=== PATIENT | female | born 1985 | race Caucasian/White ===

== ENCOUNTER 2016-09-28 22:25 | Emergency (ER) | payer OTHER ==
[~2016-09-28] VITALS: Ht 160 cm; Wt 97.1 kg
[2016-09-28 22:35] VITALS: BP 133/59
--- NOTE | 2016-09-28 22:39 | ED.ADGEN ---
Past History Past Medical History: Endometriosis, Seizure Past Surgical History: Appendectomy, Cholecystectomy, Alcohol Use: None Drug Use: None Adult General Chief Complaint Chief Complaint "...I ve been vomiting all day... and now I got lower pelvic cramping.. and back pain... I don't think my water has broken..."..." I did eat some taco's today..."... "I am to get my on Saturday at ..." HPI HPI Patient is a 30 year old female who presents with above hx and complaints. Patient reportedly does all her OB and [facility] care at however currently cannot remember the doctor's name. Patient poorly admitted at on the fourth of this month for hyper emesis, dehydration and upper respiratory infection. Patient just now has completed a course of clindamycin 300 x 3 times a day. Patient is 1. Prior delivered by twins. No travel. No history of trauma. Patient reportedly been taking vitamins. No history of STDs. Review of Systems Review of Systems Constitutional: Denies fever or chills [] Eyes: Denies change in visual acuity, redness, or eye pain [] HENT: Denies nasal congestion or sore throat [] Respiratory: Complaints of non-productive cough and wheezing. Cardiovascular: No additional information not addressed in HPI [] GI:Complaints of lower abdominal pelvic cramping and pain, nausea, vomiting,. Denies bloody stools or diarrhea [] : Denies dysuria or hematuria [] Musculoskeletal: Denies back pain or joint pain [] Integument: Denies rash or skin lesions [] Neurologic: Denies headache, focal weakness or sensory changes [] Endocrine: Denies polyuria or polydipsia [] Family History Family History Non-contributory Current Medications Current Medications Current Medications Medications (Trade) Dose Ordered Sig/Hosea Start Time Stop Time Status Last Admin Dose Admin Lactated Ringer's (Iv Lactated Ringers) 1,000 ml @ 100 mls/hr Q10H 09/28/16 23:15 09/29/16 01:03 DC Ondansetron HCl (Zofran) 4 mg 1X ONCE 09/28/16 23:15 09/28/16 23:16 DC 09/28/16 23:15 4 MG Allergies Allergies Allergies Coded Allergies Type Severity Reaction Last Updated Verified ibuprofen Allergy Intermediate 06/14/16 Yes oxycodone Allergy Intermediate 06/14/16 Yes propoxyphene Allergy Intermediate 06/14/16 Yes Physical Exam Physical Exam Constitutional: moderate distress, non-toxic appearance. [] HENT: Normocephalic, atraumatic, bilateral external ears normal, oropharynx moist, no oral exudates, nose normal. Poor dentition. Eyes: PERRLA, EOMI, conjunctiva normal, no discharge. [] Neck: Normal range of motion, no tenderness, supple, no stridor. [] Cardiovascular:Heart rate regular rhythm, no murmur [] Lungs & Thorax: Bilateral breath sounds clear to auscultation [] Abdomen: Bowel sounds normal, soft,supra pelvic tenderness, no masses, no pulsatile masses. Obese. Old scar. Gravid. No marked effacement. Os is closed. movements. US bed side FHR 156 to 160's. Skin: Warm, dry, no erythema, no rash. [] Back: No tenderness, no CVA tenderness. [] Extremities: No tenderness, no cyanosis, no clubbing, ROM intact, trace ankle edema. [] Neurologic: Alert and oriented X 3, normal motor function, normal sensory function, no focal deficits noted. DTR+ 2 patella. Psychologic: Affect anxious, judgement normal, mood normal. [] Current Patient Data Vital Signs Vital Signs Date Time Temp Pulse Resp B/P Pulse Ox O2 Delivery O2 Flow Rate FiO2 09/28/16 22:35 97.9 95 20 97 Lab Results Laboratory Tests Test 09/28/16 23:20 White Blood Count 11.1x10^3/uL (4.0-11.0) H Red Blood Count 3.62x10^6/uL (3.50-5.40) Hemoglobin 10.4g/dL (12.0-15.5) L Hematocrit 31.9% (36.0-47.0) L Mean Corpuscular Volume 88fL (79-100) Mean Corpuscular Hemoglobin 29pg (25-35) Mean Corpuscular Hemoglobin Concent 33g/dL (31-37) Red Cell Distribution Width 14.4% (11.5-14.5) Platelet Count 246x10^3/uL (140-400) Neutrophils (%) (Auto) 66% (31-73) Lymphocytes (%) (Auto) 26% (24-48) Monocytes (%) (Auto) 8% (0-9) Eosinophils (%) (Auto) 0% (0-3) Basophils (%) (Auto) 1% (0-3) Neutrophils # (Auto) 7.3x10^3uL (1.8-7.7) Lymphocytes # (Auto) 2.8x10^3/uL (1.0-4.8) Monocytes # (Auto) 0.9x10^3/uL (0.0-1.1) Eosinophils # (Auto) 0.0x10^3/uL (0.0-0.7) Basophils # (Auto) 0.1x10^3/uL (0.0-0.2) Prothrombin Time 9.3SEC (9.4-11.4) L Prothrombin Time INR 0.9 (0.9-1.1) PTT 23SEC (23-33) Urine Collection Type Unknown Urine Color Straw Urine Clarity Clear Urine pH 6.5 Urine Specific Garrison 1.010 Urine Protein Neg (NEG-TRACE) Urine Glucose (UA) Negmg/dL (NEG) Urine Ketones (Stick) Negmg/dL (NEG) Urine Blood Trace (NEG) Urine Nitrite Neg (NEG) Urine Bilirubin Neg (NEG) Urine Urobilinogen Dipstick 0.2mg/dL (0.2 mg/dL) Urine Leukocyte Esterase Trace (NEG) Urine RBC Occ/HPF (0-2) Urine WBC Occ/HPF (0-4) Urine Squamous Epithelial Cells Few/LPF Urine Bacteria Few/HPF (0-FEW) Maternal Serum HCG Beta Subunit 72862dHW/mL (0-6) H Sodium Level 136mmol/L (136-145) Potassium Level 3.8mmol/L (3.5-5.1) Chloride Level 102mmol/L (98-107) Carbon Dioxide Level 20mmol/L (21-32) L Anion Gap 14 (6-14) Blood Urea Nitrogen 7mg/dL (7-20) Creatinine 0.8mg/dL (0.6-1.0) Estimated GFR (Cockcroft-Gault) 83.7 Glucose Level 96mg/dL (70-99) Calcium Level 8.2mg/dL (8.5-10.1) L Magnesium Level 2.1mg/dL (1.8-2.4) Total Bilirubin 0.2mg/dL (0.2-1.0) Direct Bilirubin 0.1mg/dL (0.0-0.2) Aspartate Amino Transferase (AST) 20U/L (15-37) Alanine Aminotransferase (ALT) 15U/L (14-59) Alkaline Phosphatase 124U/L (46-116) H Total Protein 7.1g/dL (6.4-8.2) Albumin 2.4g/dL (3.4-5.0) L Lipase 223U/L (73-393) Urine Opiates Screen Neg (NEG) Urine Methadone Screen Neg (NEG) Urine Barbiturates Neg (NEG) Urine Phencyclidine Screen Neg (NEG) Urine Amphetamine/Methamphetamine Neg (NEG) Urine Benzodiazepines Screen Neg (NEG) Urine Cocaine Screen Neg (NEG) Urine Cannabinoids Screen Neg (NEG) Urine Ethyl Alcohol Neg (NEG) Microbiology 09/28/16 Wet Prep - Final, Complete Microbiology 09/28/16 Wet Prep - Final, Complete EKG EKG [] Radiology/Procedures Radiology/Procedures [] Course & Med Decision Making Course & Med Decision Making Pertinent Labs and Imaging studies reviewed. (See chart for details). Discussed presentation, testing and tx. plan with Dr. Denia Tomlinson construction executive for Dr. Christie at . Will accept pt in transfer. [] Final Impression Final Impression 1. Nausea and vomiting -hyper emesis gravidarum 2. Gravid 39 weeks [] 3. Leukocytosis and anemia 4. Elevated alkaline phosphatase 5. Malnutrition albumin 2.4 Problems: Dragon Disclaimer Dragon Disclaimer This electronic medical record was generated, in whole or in part, using a voice recognition dictation system. JANUSZ TARIQ MD Sep 28, 2016 22:39
[2016-09-28] MEDS: ONDANSETRON PF 4 MG/2 ML VIAL. IV ONE (23:15)
[2016-09-28] MEDS ORDERED: IV RINGERS SOLUTION,LACTATED 1,000 ML IV SCH (23:15)
[2016-09-28] MEDS: IV RINGERS SOLUTION,LACTATED 1,000 ML IV SCH (23:30)
[2016-09-28 23:38] LABS: BASO # 0.1 x10^3/uL (0.0-0.2); BASO % 1 % (0-3); EOS % 0 % (0-3); HEMATOCRIT 31.9 % (36.0-47.0); HEMOGLOBIN 10.4 g/dL (12.0-15.5); LYMPH # 2.8 x10^3/uL (1.0-4.8); LYMPH % 26 % (24-48); MEAN CORPUSCULAR HEMOGLOBIN 29 pg (25-35); MEAN CORPUSCULAR HGB CONC 33 g/dL (31-37); MEAN CORPUSCULAR VOLUME 88 fL (79-100); MONO # 0.9 x10^3/uL (0.0-1.1); MONO % 8 % (0-9); NEUT # 7.3 x10^3uL (1.8-7.7); NEUT % 66 % (31-73); PLATELET COUNT 246 x10^3/uL (140-400); RED BLOOD COUNT 3.62 x10^6/uL (3.50-5.40); RED CELL DISTRIBUTION WIDTH 14.4 % (11.5-14.5); WHITE BLOOD COUNT 11.1 x10^3/uL (4.0-11.0)
[2016-09-28 23:52] LABS: ALBUMIN 2.4 g/dL (3.4-5.0); CALCIUM 8.2 mg/dL (8.5-10.1); CREATININE 0.8 mg/dL (0.6-1.0); DIRECT BILIRUBIN 0.1 mg/dL (0.0-0.2); GFR 83.7; POTASSIUM 3.8 mmol/L (3.5-5.1); TOTAL BILIRUBIN 0.2 mg/dL (0.2-1.0); TOTAL PROTEIN 7.1 g/dL (6.4-8.2)
[2016-09-28 23:58] LABS: BILIRUBIN,URINE NEG (NEG); CLARITY,URINE CLEAR; COLOR,URINE STRAW; GLUCOSE,URINE NEG (NEG); NITRITE,URINE NEG (NEG); RBC,URINE OCC /HPF (0-2); UROBILINOGEN,URINE 0.2 mg/dL (0.2 mg/dL)
[2016-09-28 23:59] LABS: BACTERIA,URINE FEW /HPF (0-FEW); SQUAMOUS EPITHELIAL CELL,UR FEW /LPF; WBC,URINE OCC /HPF (0-4)
[2016-09-29 00:04] LABS: BARBITURATES NEG (NEG); BENZODIAZEPINES NEG (NEG); CANNABINOIDS NEG (NEG); COCAINE NEG (NEG); METHADONE NEG (NEG); OPIATES NEG (NEG); PHENCYCLIDINE NEG (NEG)
[2016-09-29 00:12] LABS: AMPHETAMINE/METHAMPHETAMINE NEG (NEG)
[2016-09-30 14:07] LABS: HCV ANTIBODY <0.1 s/co ratio (0.0-0.9); HEP A IGM ABDY Negative (Negative)
[2016-10-02 16:12] LABS: CHLAMYDIA PROBE Negative (Negative)
== END 2016-09-29 00:45 | disposition short-term general hospital (02) ==
LOC: ER 22:25
DX: O21.0 Mild hyperemesis gravidarum (principal); D72.829 Elevated white blood cell count, unspecified; D64.9 Anemia, unspecified; R74.8 Abnormal levels of other serum enzymes; E46 Unspecified protein-calorie malnutrition; Z3A.39 39 weeks gestation of pregnancy; Z88.6 Allergy status to analgesic agent; Z88.8 Allergy status to other drugs, medicaments and biological substances
CPT/HCPCS: 36415; 80048; 80074; 80076; 80305; 81001; 83690; 83735; 84443; 84702; 85027; 85610; 85730; 86900; 86901; 87086; 87491; 87591; 96361; 96374; 99285; J2405; J7120; Q0111; G0481

== ENCOUNTER 2016-12-09 10:45 | Emergency (ER) | payer OTHER ==
[~2016-12-09] VITALS: Ht 160 cm; Wt 97.1 kg
[2016-12-09 10:57] VITALS: BP 148/68
--- NOTE | 2016-12-09 11:02 | PHYS DOC ---
Past History Past Medical History: No Pertinent History Past Surgical History: Appendectomy, Cholecystectomy, Alcohol Use: None Drug Use: None Adult General Chief Complaint Chief Complaint: COUGH HPI HPI Patient is a 31-year-old female ambulatory to the emergency department with the complaint of headache, runny nose, cough, chest congestion, feverish feeling and chills, sore throat, since yesterday. Her last dose of Tylenol was 11:30 PM last night. She didn't take any this morning because she went to work and Tylenol makes her sleepy, "any pills make me sleepy". 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 Told her to get a work note since she was off yesterday as well. Patient has no chronic medical problems. See multiple allergies. Review of Systems Review of Systems Constitutional: As in history of present illness HENT: As in history of present illness Respiratory: As in history of present illness Allergies Allergies Allergies Coded Allergies Type Severity Reaction Last Updated Verified ibuprofen Allergy Intermediate 06/14/16 Yes oxycodone Allergy Intermediate 06/14/16 Yes propoxyphene Allergy Intermediate 06/14/16 Yes Physical Exam Physical Exam Constitutional: Obese female, ambulatory, mentating normally, sniffling her nose often HENT: Normocephalic, atraumatic, bilateral external ears normal, oropharynx moist, tonsils not red or enlarged, streaky erythema on the posterior pharynx. Eyes: conjunctiva normal, no discharge. [] Neck: Normal range of motion, no stridor. [] Cardiovascular:Heart rate regular rhythm, no murmur [] Lungs & Thorax: Bilateral breath sounds clear to auscultation [] Skin: Warm, dry, no erythema, no rash. [] Extremities: No tenderness, no cyanosis, no clubbing, ROM intact, no edema. [] Neurologic: Alert and oriented X 3, normal motor function, normal sensory function, no focal deficits noted. [] EKG EKG [] Radiology/Procedures Radiology/Procedures [] Course & Med Decision Making Course & Med Decision Making Pertinent Labs and Imaging studies reviewed. (See chart for details) 31-year-old female with a symptom complex that suggests viral etiology. See instructions for plan. [] Dragon Disclaimer Dragon Disclaimer This chart was dictated in whole or in part using Voice Recognition software in a busy, high-work load, and often noisy Emergency Department environment. It may contain unintended and wholly unrecognized errors or omissions. Departure Departure: Impression: Primary Impression: Viral upper respiratory infection Disposition: 01 HOME, SELF-CARE Condition: STABLE Referrals: PCP,NO (PCP) Patient Instructions: Upper Respiratory Infection, Adult, [id number] Additional Instructions: Tylenol for headache, aches and pains, fever and chills. Benadryl (diphenhydramine) for runny nose Stay home from work and avoid contacting other people, good handwashing, until you're better and without fever. FADI IRBY MD Dec 09, 2016 11:02
== END 2016-12-09 11:12 | disposition home or self-care (01) ==
LOC: ER 10:45
DX: J06.9 Acute upper respiratory infection, unspecified (principal); Z88.6 Allergy status to analgesic agent; Z88.8 Allergy status to other drugs, medicaments and biological substances
CPT/HCPCS: 99281

== ENCOUNTER 2016-12-24 19:27 | Emergency (ER) | payer OTHER ==
[~2016-12-24] VITALS: Ht 154.9 cm; Wt 84.8 kg
[2016-12-24 20:08] VITALS: BP 105/59
--- NOTE | 2016-12-24 21:32 | PHYS DOC ---
Past History Past Medical History: Asthma, Seizure, Other Past Surgical History: Other Alcohol Use: None Drug Use: None Adult General Chief Complaint Chief Complaint: UPPER EXTREMITY PAIN HPI HPI Patient is a 31-year-old female complaining of right elbow pain. 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 The pain goes all the way up to her shoulder and all the way down to her hand. It hurts to move her arm or to touch her elbow. She has not taken anything for the pain. She states ibuprofen causes her to vomit and get red spots on her face but she is able to tolerate Aleve. Review of Systems Review of Systems Musculoskeletal: As in history of present illness, denies other Allergies Allergies Allergies Coded Allergies Type Severity Reaction Last Updated Verified ibuprofen Allergy Intermediate 06/14/16 Yes oxycodone Allergy Intermediate 06/14/16 Yes propoxyphene Allergy Intermediate 06/14/16 Yes Physical Exam Physical Exam Constitutional: Well developed, well nourished, no acute distress, non-toxic appearance. Alert, ambulatory, mentating normally. HENT: Normocephalic, atraumatic, bilateral external ears normal, nose normal. [ ] Eyes: conjunctiva normal, no discharge. [] Neck: Normal range of motion, no stridor. [] Skin: Warm, dry, no erythema, no rash. [] Extremities: Patient holds her right elbow at 90 flexion. Right elbow does not appear swollen. There is no redness or deformity noted. Light touch to the entire elbow, medial and lateral aspects, anterior and posterior aspects, is tender to palpation. Right forearm, wrist, hand negative for deformity, swelling , or abnormality. She is able to move her right hand. Neurologic: Alert and oriented X 3, normal motor function, normal sensory function, no focal deficits noted. [] Current Patient Data Vital Signs Vital Signs Date Time Temp Pulse Resp B/P (MAP) Pulse Ox O2 Delivery O2 Flow Rate FiO2 12/24/16 20:08 98.5 73 20 99 Room Air EKG EKG [] Radiology/Procedures Radiology/Procedures Three-view x-ray of the right elbow read by me. No acute findings. [] Course & Med Decision Making Course & Med Decision Making Pertinent Labs and Imaging studies reviewed. (See chart for details) 31-year-old female with elbow pain after bumping it at work, I believe her pain is soft tissue rather than bony, may be tendinitis, see instructions for plan. [] Dragon Disclaimer Dragon Disclaimer This chart was dictated in whole or in part using Voice Recognition software in a busy, high-work load, and often noisy Emergency Department environment. It may contain unintended and wholly unrecognized errors or omissions. Departure Departure: Impression: Primary Impression: Tendinitis of right elbow Disposition: HOME, SELF-CARE Condition: STABLE Referrals: PCP,NO (PCP) Additional Instructions: Wear the sling to rest your elbow for several days. You can put an ice pack into the sling to keep ice on your elbow, try to keep it iced most of the day. Aleve [id number], take as directed for pain. If not better in one week, see your doctor for recheck. FADI IRBY MD Dec 24, 2016 21:32
--- NOTE | 2016-12-25 08:48 | RAD ---
Indication injury. Pain. AP oblique and lateral views of the right elbow were obtained. No acute bony finding is seen. Significant joint fluid is not seen.
== END 2016-12-24 21:35 | disposition home or self-care (01) ==
LOC: ER 19:27
DX: M77.9 Enthesopathy, unspecified (principal); J45.909 Unspecified asthma, uncomplicated; Z88.6 Allergy status to analgesic agent; Z88.8 Allergy status to other drugs, medicaments and biological substances; W22.8XXA Striking against or struck by other objects, initial encounter; Y93.89 Activity, other specified; Y99.8 Other external cause status; Y92.89 Other specified places as the place of occurrence of the external cause
CPT/HCPCS: 73080; 99284

== ENCOUNTER 2017-01-13 15:00 | Emergency (ER) | payer OTHER ==
[~2017-01-13] VITALS: Ht 157.5 cm; Wt 84.4 kg
[2017-01-13 15:08] VITALS: BP 129/80
[2017-01-13] MEDS ORDERED: HYDR-971 PO (15:42)
[2017-01-13] MEDS ORDERED: PENI500T PO (15:42)
--- NOTE | 2017-01-13 15:42 | PHYS DOC ---
Past History Past Medical History: Anxiety, Asthma, Depression, Seizure, Other Past Surgical History: Appendectomy, , Other Alcohol Use: None Drug Use: None Adult General Chief Complaint Chief Complaint: DENTAL PROBLEM HPI HPI Patient is a 31 year old female who presents with complaint of dental pain. Patient states her symptoms have been worsening over the past 2 days. The patient states that she has had trouble with dental pain in her left mandible on multiple occasions. Patient states that she does not have insurance and therefore she has not visited with a dentist to address this issue. Patient states that her symptoms were aggravated after her child accidentally kicked her in the face while sleeping at night. Patient denies any swelling but states that she is having pain which keeps her from being able to eat. Patient also states that she is having difficulty sleeping. Patient states that she took Tylenol and Orajel with no relief in symptoms. Patient denies any associated fevers or vomiting. Review of Systems Review of Systems Constitutional: Denies fever or chills [] Eyes: Denies change in visual acuity, redness, or eye pain [] HENT: Dental pain, denies nasal congestion or sore throat [] Respiratory: Denies cough or shortness of breath [] Cardiovascular: Denies chest pain or edema [] GI: Denies abdominal pain, nausea, vomiting, bloody stools or diarrhea [] : Denies dysuria or hematuria [] Musculoskeletal: Denies back pain or joint pain [] Integument: Denies rash or skin lesions [] Neurologic: Denies headache, focal weakness or sensory changes [] Allergies Allergies Allergies Coded Allergies Type Severity Reaction Last Updated Verified ibuprofen Allergy Intermediate 06/14/16 Yes oxycodone Allergy Intermediate 06/14/16 Yes propoxyphene Allergy Intermediate 06/14/16 Yes Physical Exam Physical Exam Constitutional: Alert, afebrile, appears in moderate discomfort. [] HENT: Normocephalic, atraumatic, bilateral external ears normal, oropharynx moist, no tenderness to palpation over tooth #20, no gingival fluctuance or erythema noted, no oral exudates, nose normal. [] Eyes: PERRLA, EOMI, conjunctiva normal, no discharge. [] Neck: Normal range of motion, no tenderness, supple, no stridor. [] Cardiovascular:Heart rate regular rhythm, no murmur [] Lungs & Thorax: Bilateral breath sounds clear to auscultation [] Abdomen: Bowel sounds normal, soft, no tenderness, no masses, no pulsatile masses. [] Skin: Warm, dry, no erythema, no rash. [] Back: No tenderness, no CVA tenderness. [] Extremities: No tenderness, no cyanosis, no clubbing, ROM intact, no edema. [] Neurologic: Alert and oriented X 3, normal motor function, normal sensory function, no focal deficits noted. [] Current Patient Data Vital Signs Vital Signs Date Time Temp Pulse Resp B/P (MAP) Pulse Ox O2 Delivery O2 Flow Rate FiO2 01/13/17 15:08 73 20 97 Room Air Lab Results Not performed EKG EKG Not performed [] Radiology/Procedures Radiology/Procedures Not performed [] Course & Med Decision Making Course & Med Decision Making Pertinent Labs and Imaging studies reviewed. (See chart for details) Patient does not show a dental abscess that is able to be drained in the emergency department. Due to direct tenderness to palpation over tooth #20, a small apical abscess cannot be ruled out at this time. The patient will be started on penicillin VK and Amity for treatment. Patient was provided with a list of dental clinics to follow-up with in the next 5-7 days for reevaluation. Advised return emergency department for any worsening symptoms. Patient voiced understanding and in agreement with treatment plan. Dragon Disclaimer Dragon Disclaimer This chart was dictated in whole or in part using Voice Recognition software in a busy, high-work load, and often noisy Emergency Department environment. It may contain unintended and wholly unrecognized errors or omissions. Departure Departure: Impression: Primary Impression: Pain, dental Disposition: HOME, SELF-CARE Condition: STABLE Referrals: PCP,NO (PCP) Patient Instructions: Dental Pain Additional Instructions: With your dentist in the next 5-7 days for reevaluation. Return to the emergency department for any worsening symptoms. Scripts Hydrocodone Bit/Acetaminophen (NORCO 5-325 TABLET) 1 Each Tablet 1-2 TAB PO Q4-6HRS Y for PAIN, #20 TAB Prov: HELEN COLE MD 01/13/17 Penicillin V Potassium (PENICILLIN V POTASSIUM) 500 Mg Tablet 1 TAB PO QID, #40 TAB Prov: HELEN COLE MD 01/13/17 HELEN COLE MD Jan 13, 2017 15:42
[2017-01-13] MEDS ORDERED: PENICILLIN V K 250 MG TABLET. PO ONE (16:10)
[2017-01-13] MEDS ORDERED: HYDROcodone/APAP 7.5/325MG 1 TAB TABLET PO ONE (16:10)
== END 2017-01-13 15:57 | disposition home or self-care (01) ==
LOC: ER 15:00
DX: K08.89 Other specified disorders of teeth and supporting structures (principal); J45.909 Unspecified asthma, uncomplicated; F41.9 Anxiety disorder, unspecified; Z88.6 Allergy status to analgesic agent; Z88.5 Allergy status to narcotic agent; Z88.8 Allergy status to other drugs, medicaments and biological substances
CPT/HCPCS: 99283

== ENCOUNTER 2017-04-05 18:20 | Emergency (ER) | payer OTHER ==
[~2017-04-05] VITALS: Ht 157.5 cm; Wt 94.8 kg
[~2017-04-05 18:20] MED LIST: HYDR-971 PO; PENI500T PO
[2017-04-05 19:00] VITALS: BP 151/77
[2017-04-05] MEDS ORDERED: HYDR-2758 PO (19:14)
[2017-04-05] MEDS ORDERED: METH-38 PO (19:14)
[2017-04-05] MEDS ORDERED: LORazepam 1 MG TABLET PO ONE (19:15)
[2017-04-05] MEDS ORDERED: METHOCARBAMOL 500 MG TABLET PO ONE (19:15)
--- NOTE | 2017-04-05 19:15 | PHYS DOC ---
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 The back pain began at home while she is doing her typical daily activities of living when she noticed increasing pain with bending over turning to the right left that is progressively gotten more stiff in the lower back. She denies any specific trauma, denies any night sweats, weight loss, UTI symptoms, hematuria, nausea, vomiting, diarrhea, numbness and tinea to the groin, bowel or bladder incontinence or prior injuries to this back. Eyes no sick contacts denies any non-excellent trauma home or any abuse. Patient is tried use Tylenol without success. Patient does work all the time taking care of her children so she has limited time to relax. She is allergic to multiple medications although Motrin is listed she just has nausea with this particular medication. Pain is worse with range of motion and movement specific bending over. It is moderate 7 of 10 at this time at rest 9 of 10 with movement. It does not radiate anywhere to the abdomen or upper back Review of Systems Review of Systems Constitutional: Denies fever or chills [] Eyes: Denies change in visual acuity, redness, or eye pain [] HENT: Denies nasal congestion or sore throat [] Respiratory: Denies cough or shortness of breath [] Cardiovascular: No additional information not addressed in HPI [] GI: Denies abdominal pain, nausea, vomiting, bloody stools or diarrhea [] : Denies dysuria or hematuria [] Musculoskeletal: Main complaint is lower back pain without joint pain swelling or trauma Integument: Denies rash or skin lesions [] Neurologic: Denies headache, focal weakness or sensory changes [] Endocrine: Denies polyuria or polydipsia [] Current Medications Current Medications Current Medications Medications (Trade) Dose Ordered Sig/Hosea Start Time Stop Time Status Last Admin Dose Admin Ketorolac Tromethamine (Toradol) 60 mg 1X ONCE 04/05/17 19:00 04/05/17 19:01 UNV Lorazepam (Ativan) 1 mg 1X ONCE 04/05/17 19:15 04/05/17 19:16 Methocarbamol (Robaxin) 500 mg 1X ONCE 04/05/17 19:15 04/05/17 19:16 Allergies Allergies Allergies Coded Allergies Type Severity Reaction Last Updated Verified ibuprofen Allergy Intermediate 06/14/16 Yes oxycodone Allergy Intermediate 06/14/16 Yes propoxyphene Allergy Intermediate 06/14/16 Yes Physical Exam Physical Exam Vital signs recorded on the chart within normal limits Constitutional: Well developed, well nourished, no acute distress, non-toxic appearance. Mildly obese HENT: Normocephalic, atraumatic, bilateral external ears normal, oropharynx moist, has very poor dentition with significant dental caries noted on the incisors.. [] Cardiovascular:Heart rate regular rhythm, no murmur [] Lungs & Thorax: Bilateral breath sounds clear to auscultation [] Abdomen: Bowel sounds normal, soft, no tenderness, no masses, no pulsatile masses. [] Skin: Warm, dry, no erythema, no rash. She has brisk capillary refill of the distal extremities. Back: She has tenderness to the erector spinae muscles of L1-L5 nothing midline no warmth or skin changes over the lumbar spine. This pain is exactly reproducible on physical exam with direct pressure over the spasm muscles.. [] Extremities: No tenderness, no cyanosis, no clubbing, ROM intact, no edema. [] Neurologic: Alert and oriented X 3, normal motor function, normal sensory function, no focal deficits noted. She has normal strength to her lower extremities with normal DTRs. Negative straight leg raise bilaterally[] Psychologic: Affect normal, judgement normal, mood normal. [] EKG EKG [] Radiology/Procedures Radiology/Procedures [] Course & Med Decision Making Course & Med Decision Making Pertinent Labs and Imaging studies reviewed. (See chart for details) CRAFTI Cauda Equina Renal Stone AAA ruptured Fracture Tumor (TB, metastatic disease) Infection UTI, pyelonephritis, epidural abscess. Patient's spine symptoms have stabilized while they have been evaluated in the department and are appropriate for outpatient work up. No evidence of cauda equina, cord compression, infiltrative, or infectious etiology. Impression: Muscle skeletal back pain decision to treat with anti-inflammatories , Robaxin, and hydrocodone. Dragon Disclaimer Dragon Disclaimer This chart was dictated in whole or in part using Voice Recognition software in a busy, high-work load, and often noisy Emergency Department environment. It may contain unintended and wholly unrecognized errors or omissions. Departure Departure: Impression: Primary Impression: Pain aggravated by changing postions Additional Impression: Back pain Disposition: 01 HOME, SELF-CARE Referrals: PCP,NO (PCP) Patient Instructions: Back Exercises, Back Injury Prevention, Back Pain in Additional Instructions: My discharge plan Follow up: In addition patient is asked to followup with their primary doctor, within a week for followup examination and to address patient's ongoing medical conditions. Because patient does not have a regular medical doctor, a local physician Resource Sheet will be provided to establish care primary care. Patient is advised that in the Emergency Department primary complaints are addressed and only in light of known signs and symptoms. Patient should return immediately to the emergency department if new signs and symptoms develop or patient's condition worsens in any way. At time of discharge patient was in stable condition and had verbalized understanding of the discharge instructions. Scripts Hydrocodone Bit/Acetaminophen (HYDROCODONE-APAP 5-325 ) 1 Each Tablet 1 TAB PO PRN Q6HRS Y for PAIN for 2 Days, #10 TAB 0 Refills Prov: CAR IBRAHIM MD 04/05/17 Methocarbamol (ROBAXIN-750) 750 Mg Tablet 1 TAB PO BID, #20 TAB Prov: CAR IBRAHIM MD 04/05/17 Problem Qualifiers CAR IBRAHIM MD Apr 05, 2017 19:15
[2017-04-05] MEDS ORDERED: KETOROLAC 60 MG/2 ML VIAL. IM ONE (19:30)
== END 2017-04-05 19:30 | disposition home or self-care (01) ==
LOC: ER 18:20
DX: M54.5 Low back pain (principal); J45.909 Unspecified asthma, uncomplicated; F41.9 Anxiety disorder, unspecified; F32.9 Major depressive disorder, single episode, unspecified; Z90.49 Acquired absence of other specified parts of digestive tract; Z98.890 Other specified postprocedural states; F17.210 Nicotine dependence, cigarettes, uncomplicated; Z88.6 Allergy status to analgesic agent; Z88.5 Allergy status to narcotic agent; Z88.8 Allergy status to other drugs, medicaments and biological substances
CPT/HCPCS: 96372; 99283; J1885

== ENCOUNTER 2017-04-17 16:01 | Emergency (ER) | payer OTHER ==
[~2017-04-17] VITALS: Ht 157.5 cm; Wt 94.8 kg
[~2017-04-17 16:01] MED LIST changes: +HYDR-2758 PO; +METH-38 PO
--- NOTE | 2017-04-17 16:14 | PHYS DOC ---
Past History Past Medical History: Anxiety, Asthma, Depression, Seizure, Other Past Surgical History: Appendectomy, , Other Smoking: Cigarettes Alcohol Use: None Drug Use: None Adult General Chief Complaint Chief Complaint: ANKLE PROBLEM HPI HPI Patient is a 31-year-old female presenting to the emergency department for evaluation of left proximal fibular pain left lateral ankle pain and left lateral foot pain status post inversion injury while trying to move a vehicle. He is some swelling to her left lateral malleolus but she denies any weakness numbness or tingling. She cannot bear weight on her ankle. Review of Systems Review of Systems Constitutional: Denies fever or chills [] Musculoskeletal: + joint pain [] Integument: Denies abrasions or lacerations Neurologic: Denies focal weakness or sensory changes [] All other systems were reviewed and found to be within normal limits, except as documented in this note. Allergies Allergies Allergies Coded Allergies Type Severity Reaction Last Updated Verified ibuprofen Allergy Intermediate 06/14/16 Yes oxycodone Allergy Intermediate 06/14/16 Yes propoxyphene Allergy Intermediate 06/14/16 Yes Physical Exam Physical Exam Constitutional: Well developed, well nourished, no acute distress, non-toxic appearance. [] Extremities: Pain to proximal fibula on palpation. HEENT lateral malleolus with some swelling although no deformity. Pain to palpation of fifth metatarsal diffusely. Neurologic: Alert and oriented X 3, normal motor function, normal sensory function, no focal deficits noted. [] EKG EKG [] Radiology/Procedures Radiology/Procedures [] Course & Med Decision Making Course & Med Decision Making X-ray with a small distal fibular tip fracture. We'll put in air splint and crutches recommend rice and tramadol and follow with PCP and/or orthopedics in one week and return with any new worsening symptoms. Patient aware and agreeable with plan. Dragon Disclaimer Dragon Disclaimer This electronic medical record was generated, in whole or in part, using a voice recognition dictation system. Departure Departure: Impression: Primary Impression: Fibula fracture Disposition: 01 HOME, SELF-CARE Condition: STABLE Referrals: JOSE CARLOS CAN DO (PCP) Patient Instructions: Ankle Fracture Scripts Tramadol Hcl (TRAMADOL HCL) 50 Mg Tablet 50 MG PO PRN Q6HRS Y for PAIN, #14 TAB Prov: ELIZABETH DAMON DO 04/17/17 Problem Qualifiers Primary Impression: Fibula fracture Encounter type: initial encounter Fibula location: distal Fracture type: closed Fracture morphology: unspecified fracture morphology Laterality: left Qualified Codes: S82.832A - Other fracture of upper and lower end of left fibula, initial encounter for closed fracture ELIZABETH DAMON DO Apr 17, 2017 16:14
[2017-04-17] MEDS ORDERED: TRAM50TA PO (16:42)
--- NOTE | 2017-04-17 16:44 | RAD ---
EXAM: 1. Left tibia/fibula 2 views. 2. Left ankle 3 views. 3. Left foot 3 views. HISTORY: Left leg, ankle and foot pain after injury. COMPARISON: None. FINDINGS: The joint spaces and alignment of the knee appear maintained. There are no fractures within the proximal tibia or fibula. There is a small avulsion fracture at the tip of the lateral malleolus with mild overlying soft tissue swelling. Joint spaces and alignment of the ankle mortise are maintained. The lateral ankle projection is rotated. No fractures are appreciated in the left foot. Joint spaces and alignment are maintained. IMPRESSION: 1. Small avulsion fracture at the tip of the lateral malleolus.
[2017-04-17] MEDS ORDERED: HYDROcodone/APAP 5/325MG 1 TAB TABLET PO ONE (16:45)
[2017-04-17 17:05] VITALS: BP 105/65
== END 2017-04-17 17:05 | disposition home or self-care (01) ==
LOC: ER 16:01
DX: S82.832A Other fracture of upper and lower end of left fibula, initial encounter for closed fracture (principal); J45.909 Unspecified asthma, uncomplicated; F17.210 Nicotine dependence, cigarettes, uncomplicated; Z88.6 Allergy status to analgesic agent; Z88.5 Allergy status to narcotic agent; Z88.8 Allergy status to other drugs, medicaments and biological substances; X50.9XXA Other and unspecified overexertion or strenuous movements or postures, initial encounter; Y93.89 Activity, other specified; Y92.89 Other specified places as the place of occurrence of the external cause; Y99.8 Other external cause status
CPT/HCPCS: 29515; 73590; 73610; 73630; 99284-25

== ENCOUNTER 2017-07-17 08:37 | Emergency (ER) | payer OTHER ==
[~2017-07-17 08:37] MED LIST changes: +TRAM50TA PO
[2017-07-17] MEDS ORDERED: IV NORMAL SALINE 1,000ML 1,000 ML IV SCH (09:04)
--- NOTE | 2017-07-17 09:12 | PHYS DOC ---
Past History Past Medical History: Anxiety, Asthma, Depression, Seizure, Other Past Surgical History: Appendectomy, , Other Smoking: Cigarettes Alcohol Use: None Additional Alcohol Information: NONE FOR 1 YEAR, OCC DRINK PRIOR TO THAT Drug Use: None Adult General Chief Complaint Chief Complaint: LOWER EXT PAIN [facility] HPI Patient is a 31 year old female who presents with complaint of bilateral lower extremity pain. Patient states that her symptoms started approximately 3 days ago. The patient states that she started noticing pain starting behind both knees and extending through her bilateral calves. Patient states the pain worsens with movement. Patient denies any inciting trauma. Patient denies history of venous thrombosis and denies any recent long due to immobilization or extended travel. The patient rates her pain on my evaluation as 8 out of 10. Patient denies any shortness of breath, chest pain, or fever. Patient states that she had noticed swelling to both lower extremities couple days ago but states that she is not having any swelling in the extremities today. Review of Systems Review of Systems Constitutional: Denies fever or chills [] Eyes: Denies change in visual acuity, redness, or eye pain [] HENT: Denies nasal congestion or sore throat [] Respiratory: Denies cough or shortness of breath [] Cardiovascular: No additional information not addressed in HPI [] GI: Denies abdominal pain, nausea, vomiting, bloody stools or diarrhea [] : Denies dysuria or hematuria [] Musculoskeletal: Bilateral lower extremity pain[] Integument: Denies rash or skin lesions [] Neurologic: Denies headache, focal weakness or sensory changes [] All other systems were reviewed and found to be within normal limits, except as documented in this note. Current Medications Current Medications Current Medications Medications (Trade) Dose Ordered Sig/[facility] Start Time Stop Time Status Last Admin Dose Admin Fentanyl Citrate (Fentanyl 2ml Vial) 50 mcg PRN Q15MIN PRN 07/17/17 09:15 07/18/17 09:14 Ondansetron HCl (Zofran) 4 mg 1X ONCE 07/17/17 09:30 07/17/17 09:31 Sodium Chloride 1,000 ml @ 1,000 mls/hr Q1H 07/17/17 09:04 07/17/17 10:03 Allergies Allergies Allergies Coded Allergies Type Severity Reaction Last Updated Verified ibuprofen Allergy Intermediate 07/17/17 Yes oxycodone Allergy Intermediate 07/17/17 Yes propoxyphene Allergy Intermediate 07/17/17 Yes acetaminophen Allergy Unknown 07/17/17 Yes Physical Exam Physical Exam Constitutional: Alert, afebrile, appears in mild to moderate discomfort. [] HENT: Normocephalic, atraumatic, bilateral external ears normal, oropharynx moist, no oral exudates, nose normal. [] Eyes: PERRLA, EOMI, conjunctiva normal, no discharge. [] Neck: Normal range of motion, no tenderness, supple, no stridor. [] Cardiovascular:Heart rate regular rhythm, no murmur [] Lungs & Thorax: Bilateral breath sounds clear to auscultation [] Abdomen: Bowel sounds normal, soft, no tenderness, no masses, no pulsatile masses. [] Skin: Warm, dry, no erythema, no rash. [] Back: No tenderness, no CVA tenderness. [] Extremities: Bilateral calf tenderness to palpation, no edema, no cyanosis, no clubbing, ROM intact. [] Neurologic: Alert and oriented X 3, normal motor function, normal sensory function, no focal deficits noted. [] Current Patient Data Vital Signs Vital Signs Date Time Temp Pulse Resp B/P (MAP) Pulse Ox O2 Delivery O2 Flow Rate FiO2 07/17/17 08:37 98.0 69 20 99 Room Air Lab Results Laboratory Tests Test 07/17/17 09:15 White Blood Count 8.3 x10^3/uL Red Blood Count 4.84 x10^6/uL Hemoglobin 13.8 g/dL Hematocrit 41.5 % Mean Corpuscular Volume 86 fL Mean Corpuscular Hemoglobin 29 pg Mean Corpuscular Hemoglobin Concent 33 g/dL Red Cell Distribution Width 15.0 % Platelet Count 391 x10^3/uL Neutrophils (%) (Auto) 59 % Lymphocytes (%) (Auto) 31 % Monocytes (%) (Auto) 5 % Eosinophils (%) (Auto) 4 % Basophils (%) (Auto) 1 % Neutrophils # (Auto) 4.9 x10^3uL Lymphocytes # (Auto) 2.6 x10^3/uL Monocytes # (Auto) 0.4 x10^3/uL Eosinophils # (Auto) 0.3 x10^3/uL Basophils # (Auto) 0.1 x10^3/uL Sodium Level 139 mmol/L Potassium Level 3.9 mmol/L Chloride Level 103 mmol/L Carbon Dioxide Level 26 mmol/L Anion Gap 10 Blood Urea Nitrogen 10 mg/dL Creatinine 1.0 mg/dL Estimated GFR (Cockcroft-Gault) 64.3 Glucose Level 92 mg/dL Calcium Level 8.7 mg/dL Magnesium Level 2.1 mg/dL Creatine Kinase 137 U/L Current Medications Medications (Trade) Dose Ordered Sig/[facility] Route PRN Reason Start Time Stop Time Status Last Admin Dose Admin Fentanyl Citrate (Fentanyl 2ml Vial) 50 mcg PRN Q15MIN PRN IV PAIN GREATER THAN 3/10 07/17/17 09:15 07/18/17 09:14 Sodium Chloride 1,000 ml @ 1,000 mls/hr Q1H IV 07/17/17 09:04 07/17/17 10:03 DC Ondansetron HCl (Zofran) 4 mg 1X ONCE IV 07/17/17 09:30 07/17/17 09:31 DC EKG EKG Not performed[] Radiology/Procedures Radiology/Procedures [address] [address] IMAGING REPORT Signed PATIENT: LARRY STOVER ACCOUNT: [id number] : 1985 LOCATION: ER AGE: 31 SEX: F EXAM STATUS: REG ER ORD. PHYSICIAN: HELEN COLE MD REASON: bilateral lower extremity calf pain, rule out DVT PROCEDURE: VENOUS LOWER EXT BILATERAL Examination: Ultrasound bilateral lower extremity venous duplex History: History of bilateral lower calf pain Comparison: None available Technique: Grayscale, color Doppler 2-D, spectral waveform analysis of the bilateral lower extremity venous system performed. Findings: The visualized common femoral vein, superficial femoral vein, popliteal vein demonstrate normal compression and augmentation of flow. The visualized calf veins are patent. Impression: No evidence of deep venous thrombosis identified in the visualized bilateral lower extremity venous system. DICTATED AND SIGNED BY: SRAVAN WHITT MD DATE: 07/17/17 0951 CC: HELEN COLE MD; PCP,NO ~ [] Course & Med Decision Making Course & Med Decision Making Pertinent Labs and Imaging studies reviewed. (See chart for details) Patient was given IV fluids, fentanyl, and Zofran. The patient's lab work shows no elevation in CK levels in the patient's electrolytes and kidney function appear to be normal. Patient's ultrasound was negative for deep venous thrombosis of the lower extremities. The patient's symptoms may be related to arthritis of the knees versus acute muscle strain. No acute threatening process appears present at this time. The patient states that she listed an allergy to ibuprofen because "it makes me throw up." This is likely not a true anaphylactic allergy. I did recommend that patient could started on low-dose naproxen [id number] strength 1 twice daily. I have agreed however to write the patient for a Medrol Dosepak in case the patient has any trouble with nausea or vomiting related to use of naproxen. Advised continued rest at home and oral hydration to help with symptoms. Recommended follow-up in 3-5 days with primary doctor if symptoms are not improving and return emergency department for any worsening symptoms. Patient voiced understanding and in agreement with treatment plan. Dragon Disclaimer Dragon Disclaimer This electronic medical record was generated, in whole or in part, using a voice recognition dictation system. Departure Departure: Impression: Primary Impression: Bilateral calf pain Disposition: HOME, SELF-CARE Condition: IMPROVED Referrals: PCP,RONAK (PCP) Patient Instructions: Muscle Strain, [id number] Additional Instructions: You may try [id number] naproxen sodium 220 mg 1 tablet twice daily for the next 5-7 days to help with your pain. If you're having any difficulty taking this medication, then it is recommended that she fill the Medrol prescription which was given to you at today's visit. Follow-up with your primary doctor in 3-5 days for reevaluation. Return to the emergency department for any worsening symptoms. Scripts Methylprednisolone (MEDROL) 4 Mg Tab.ds.pk 1 PKG PO UD, #1 PKG Prov: HELEN COLE MD 07/17/17 HELEN COLE MD Jul 17, 2017 09:12
[2017-07-17 09:30] LABS: BASO # 0.1 x10^3/uL (0.0-0.2); BASO % 1 % (0-3); EOS # 0.3 x10^3/uL (0.0-0.7); EOS % 4 % (0-3); HEMATOCRIT 41.5 % (36.0-47.0); HEMOGLOBIN 13.8 g/dL (12.0-15.5); LYMPH # 2.6 x10^3/uL (1.0-4.8); LYMPH % 31 % (24-48); MEAN CORPUSCULAR HEMOGLOBIN 29 pg (25-35); MEAN CORPUSCULAR HGB CONC 33 g/dL (31-37); MEAN CORPUSCULAR VOLUME 86 fL (79-100); MONO # 0.4 x10^3/uL (0.0-1.1); MONO % 5 % (0-9); NEUT # 4.9 x10^3uL (1.8-7.7); NEUT % 59 % (31-73); PLATELET COUNT 391 x10^3/uL (140-400); RED BLOOD COUNT 4.84 x10^6/uL (3.50-5.40); WHITE BLOOD COUNT 8.3 x10^3/uL (4.0-11.0)
[2017-07-17] MEDS ORDERED: ONDANSETRON PF 4 MG/2 ML VIAL. IV ONE (09:30)
[2017-07-17 09:43] LABS: CALCIUM 8.7 mg/dL (8.5-10.1); GFR 64.3; MAGNESIUM 2.1 mg/dL (1.8-2.4); POTASSIUM 3.9 mmol/L (3.5-5.1)
--- NOTE | 2017-07-17 09:57 | RAD ---
Examination: Ultrasound bilateral lower extremity venous duplex History: History of bilateral lower calf pain Comparison: None available Technique: Grayscale, color Doppler 2-D, spectral waveform analysis of the bilateral lower extremity venous system performed. Findings: The visualized common femoral vein, superficial femoral vein, popliteal vein demonstrate normal compression and augmentation of flow. The visualized calf veins are patent. Impression: No evidence of deep venous thrombosis identified in the visualized bilateral lower extremity venous system.
[2017-07-17] MEDS ORDERED: METH4TAB2 PO (10:10)
[2017-07-17 11:24] VITALS: BP 112/57
== END 2017-07-17 11:38 | disposition home or self-care (01) ==
LOC: ER 08:37
DX: M79.661 Pain in right lower leg (principal); M79.662 Pain in left lower leg; R22.43 Localized swelling, mass and lump, lower limb, bilateral; J45.909 Unspecified asthma, uncomplicated; F17.210 Nicotine dependence, cigarettes, uncomplicated; Z88.6 Allergy status to analgesic agent; Z88.5 Allergy status to narcotic agent
CPT/HCPCS: 36415; 80048; 82550; 83735; 85025; 93970; 96361; 96374; 96375; 99285; J2405; J3010; J7030

== ENCOUNTER 2017-07-31 21:31 | Emergency (ER) | payer OTHER ==
[~2017-07-31] VITALS: Ht 157.5 cm; Wt 93.3 kg
[~2017-07-31 21:31] MED LIST changes: +METH4TAB2 PO
--- NOTE | 2017-07-31 21:48 | PHYS DOC ---
Past History Past Medical History: Anxiety, Asthma, Depression, Seizure, Other Past Surgical History: Appendectomy, , Other Smoking: Cigarettes Alcohol Use: None Drug Use: None Adult General Chief Complaint Chief Complaint: MULTIPLE COMPLAINTS HPI HPI Patient is a 31 year old F who presents with cough/cold/congestion for the past 24 hours. Patient states she has not smoked in a week because of her URI symptoms. Over the past 24 hours she's had worsening wheezing with chills at home however did not take her temperature. Patient had a productive cough. Patient denies any chest pain. Patient states the shortness of breath is worse when she gets up and walks. Patient states she vomited today. Patient has no other complaints. Review of Systems Review of Systems GEN: Denies fevers, chills, sweats HEENT: Congestion CV: Denies chest pain RESP: Cough GI: Vomited NEURO: Denies confusion, dizziness MSK: Denies weakness, joint pain/swelling All other systems were reviewed and found to be within normal limits, except as documented in this note. Allergies Allergies Allergies Coded Allergies Type Severity Reaction Last Updated Verified ibuprofen Allergy Intermediate 07/17/17 Yes oxycodone Allergy Intermediate 07/17/17 Yes propoxyphene Allergy Intermediate 07/17/17 Yes acetaminophen Allergy Unknown 07/17/17 Yes Physical Exam Physical Exam GEN.: Mild distress. Alert and oriented. HEENT: Head is normocephalic, atraumatic, TMs clear bilaterally, posterior pharynx not erythematous no tonsillar swelling NECK: Supple, no cervical lymph adenopathy, no meningeal signs LUNGS: Wheezing bilaterally HEART: RRR, S1, S2 present. Peripheral pulses intact ABDOMEN: Soft, nontender. Positive bowel sounds. EXTREMITIES: Without any cyanosis. NEUROLOGIC: Normal speech, normal tone PSYCHIATRIC: Normal affect, normal mood. SKIN: No ulcerations Current Patient Data Vital Signs Laboratory Tests Test 07/31/17 21:40 Influenza Type A (Rapid) Positive Influenza Type B (Rapid) Negative Current Medications Medications (Trade) Dose Ordered Sig/[facility] Route PRN Reason Start Time Stop Time Status Last Admin Dose Admin Dexamethasone Sodium Phosphate (Decadron) 10 mg 1X ONCE IM 07/31/17 22:15 07/31/17 22:16 DC 07/31/17 22:08 Albuterol/ Ipratropium (Duoneb) 3 ml 1X ONCE NEB 07/31/17 22:15 07/31/17 22:16 DC 07/31/17 22:08 Albuterol/ Ipratropium (Duoneb) 3 ml 1X ONCE NEB 07/31/17 22:45 07/31/17 22:46 DC 07/31/17 22:35 Ondansetron HCl (Zofran Odt) 4 mg 1X ONCE PO 07/31/17 22:45 07/31/17 22:46 DC 07/31/17 22:48 EKG EKG 2153: EKG shows normal sinus rhythm rate of 94 no STEMI[] Radiology/Procedures Radiology/Procedures Chest x-ray shows situs inversus otherwise no acute infiltrate, NAD[] Course & Med Decision Making Course & Med Decision Making Pertinent Labs and Imaging studies reviewed. (See chart for details) ED course: Patient was seen and examined emergency room influenza swabs were ordered along with a chest x-ray, EKG, breathing treatments, 10 mg Decadron IM Pt was given for Motrin and Zofran ODT further increased coughing and vomiting of phlegm Patient was updated on her influenza a positive results and plan to discharge home with nausea and vomiting medication, steroids, antibiotics for atypical pneumonia since she is a smoker. MDM: After reviewing the chart, CC/HPI/PMH, physical exam, [lab results], [ radiological results], I believe the patient is influenza a positive with atypical pneumonia which will treat with antibiotics and Tamiflu and steroids and some nausea vomiting medication since the patient is coughing so much she vomits phlegm. I believe the patient stable for discharge since he is not hypoxic and in no acute respiratory distress. Patient is comfortable being discharged home. Patient will be given a couple days off work. Additional verbal discharge instructions were provided to the patient and that if symptoms get worse or any new symptoms arise that are worrisome to the patient she is to return to the emergency room immediately [] Dragon Disclaimer Dragon Disclaimer This electronic medical record was generated, in whole or in part, using a voice recognition dictation system. Departure Departure: Impression: Primary Impression: Atypical pneumonia Additional Impressions: COPD exacerbation Influenza A Disposition: HOME, SELF-CARE Condition: IMPROVED Referrals: PCP,NO (PCP) Patient Instructions: Influenza, Adult, Pneumonia, Adult, [id number] Additional Instructions: Please follow-up with your family doctor next one to 2 days and return if symptoms increase Scripts Ondansetron (ZOFRAN ODT) 4 Mg Tab.rapdis 1 TAB SL Q8HRS, #10 TAB Prov: JENIFER MCKEON DO 07/31/17 Prednisone (PREDNISONE) 50 Mg Tablet 50 MG PO DAILY for 5 Days, #5 TAB Prov: JENIFER MCKEON DO 07/31/17 Oseltamivir Phosphate (TAMIFLU) 75 Mg Capsule 1 CAP PO BID, #10 CAP Prov: JENIFER MCKEON DO 07/31/17 Doxycycline Hyclate (DOXYCYCLINE HYCLATE) 100 Mg Capsule 1 CAP PO BID, #20 CAP Prov: JENIFER MCKEON DO 07/31/17 Problem Qualifiers JENIFER MCKEON DO Jul 31, 2017 21:48
[2017-07-31] MEDS ORDERED: IPRATRPIUM/ALBUTEROL 0.5/2.5MG 3 ML NEBU. NEB ONE ×2 (22:15→22:45)
[2017-07-31] MEDS ORDERED: DEXAMETHASONE SOD PHOS 10 MG/ML VIAL IM ONE (22:15)
[2017-07-31] MEDS ORDERED: ONDANSETRON ODT 4 MG TAB.RAPDIS PO ONE (22:45)
[2017-07-31 22:47] LABS: INFLUENZA A PATIENT POSITIVE (NEGATIVE); INFLUENZA B PATIENT NEGATIVE (NEGATIVE)
[2017-07-31] MEDS ORDERED: PRED50TA PO (22:57)
[2017-07-31] MEDS ORDERED: ONDA4TAB10 SL (22:57)
[2017-07-31] MEDS ORDERED: OSEL75CA PO (22:57)
[2017-07-31] MEDS ORDERED: DOXY100C2 PO (22:57)
[2017-07-31 23:05] VITALS: BP 132/68
--- NOTE | 2017-07-31 23:27 | EKG ---
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
--- NOTE | 2017-08-01 07:41 | RAD ---
2 view CXR: Clinical indications: Shortness of air tonight. Comparison: None available Findings: No acute lung infiltrate or pleural effusion or pulmonary edema or lung mass or pneumothorax is seen. Dextrocardia is seen. The aortic arch and stomach bubble are located on the left side. The heart size is normal otherwise. The pulmonary vasculature, mediastinum and both celeste are unremarkable. The osseous structures appear intact. Impression: No acute lung infiltrate. Situs inversus with dextrocardia. The aortic arch and stomach bubble are located on the left side. There is an increased risk of congenital cardiac anomalies with this finding.
== END 2017-07-31 23:05 | disposition home or self-care (01) ==
LOC: ER 21:31
DX: J44.1 Chronic obstructive pulmonary disease with (acute) exacerbation (principal); J44.0 Chronic obstructive pulmonary disease with (acute) lower respiratory infection; J09.X1 Influenza due to identified novel influenza A virus with pneumonia; F41.9 Anxiety disorder, unspecified; F32.9 Major depressive disorder, single episode, unspecified; F17.210 Nicotine dependence, cigarettes, uncomplicated; Z88.6 Allergy status to analgesic agent; Z88.5 Allergy status to narcotic agent; Z88.8 Allergy status to other drugs, medicaments and biological substances
CPT/HCPCS: 71046; 87804; 93005; 94640; 96372; 99285; J1100; J7620; Q0162

== ENCOUNTER 2017-10-02 07:51 | Emergency (ER) | payer OTHER ==
[~2017-10-02] VITALS: Ht 157.5 cm; Wt 92.0 kg
[~2017-10-02 07:51] MED LIST changes: +DOXY100C2 PO; +ONDA4TAB10 SL; +OSEL75CA PO; +PRED50TA PO
[2017-10-02] MEDS ORDERED: IV NORMAL SALINE 1,000ML 1,000 ML IV ONE (08:15)
[2017-10-02] MEDS ORDERED: KETOROLAC 30 MG/ML VIAL. IV ONE (08:30)
[2017-10-02] MEDS ORDERED: PROCHLORPERAZINE 10 MG/2 ML VIAL. IV ONE (08:30)
[2017-10-02] MEDS ORDERED: diphenhydrAMINE 50 MG/ML VIAL IVP ONE (08:30)
--- NOTE | 2017-10-02 08:34 | PHYS DOC ---
Past History Past Medical History: Asthma, Endometriosis, Other Past Surgical History: Cholecystectomy, , Other Smoking: Cigarettes Alcohol Use: None Drug Use: None Adult General Chief Complaint Chief Complaint: HEADACHE HPI HPI Patient is a 31 year old female who presents with migraine headache. The patient has history of migraine, reports frontal headache since 1930 last night. Describes as aching/throbbing, dull, typical of usual migraine headache although she also has occipital headaches, not sudden in onset & not the worst headache of her life. Reports nausea & vomiting x 1, photophobia/phonophobia. She denies fevers/chills, neck stiffness, vision changes, extremity numbness/ weakness. Took tylenol at home without relief of symptoms. Review of Systems Review of Systems Constitutional: Denies fever or chills Eyes: Denies change in visual acuity HENT: Denies nasal congestion or sore throat Respiratory: Denies cough or shortness of breath Cardiovascular: Denies chest pain or edema GI: Reports nausea/vomiting, Denies abdominal pain : Denies dysuria or hematuria Musculoskeletal: Denies back pain or joint pain Integument: Denies rash or skin lesions Neurologic: Reports headache, denies focal weakness or sensory changes All other systems were reviewed and found to be within normal limits, except as documented in this note. Current Medications Current Medications Current Medications Medications (Trade) Dose Ordered Sig/[facility] Start Time Stop Time Status Last Admin Dose Admin Diphenhydramine HCl (Benadryl) 25 mg 1X ONCE 10/02/17 08:30 10/02/17 08:31 Ketorolac Tromethamine (Toradol) 30 mg 1X ONCE 10/02/17 08:30 10/02/17 08:31 Prochlorperazine Edisylate (Compazine) 10 mg 1X ONCE 10/02/17 08:30 10/02/17 08:31 Sodium Chloride 1,000 ml @ 1,000 mls/hr 1X ONCE 10/02/17 08:15 10/02/17 09:14 Allergies Allergies Allergies Coded Allergies Type Severity Reaction Last Updated Verified ibuprofen Allergy Intermediate 10/02/17 Yes oxycodone Allergy Intermediate 10/02/17 Yes propoxyphene Allergy Intermediate 10/02/17 Yes acetaminophen Allergy Unknown 08/09/79 Yes Physical Exam Physical Exam Constitutional: obese, no acute distress, non-toxic appearance. HENT: Normocephalic, atraumatic, bilateral external ears normal, oropharynx moist, nose normal. No tonsillar enlargement or exudate. Eyes: PERRLA, EOMI, conjunctiva normal, no discharge. Neck: supple, no stridor. No meningismus Cardiovascular: RRR, no murmurs, no edema. Lungs & Thorax: LCTAB, no wheezing, no respiratory distress. Abdomen: soft, nontender, nondistended. Skin: Warm, dry, no erythema, no rash. Back: No tenderness. Extremities: No tenderness, no edema. Neurologic: Alert and oriented X 3, cranial nerves 2-12 grossly intact, symmetric strength/sensation to upper & lower extremities, focal deficits noted. Psychologic: Affect normal, judgement normal, mood normal. Current Patient Data Vital Signs Vital Signs Date Time Temp Pulse Resp B/P (MAP) Pulse Ox O2 Delivery O2 Flow Rate FiO2 10/02/17 08:01 98.0 76 16 99 Room Air Lab Results Laboratory Tests Test 10/02/17 07:29 POC Urine HCG, Qualitative hcg negative (Negative) EKG EKG [] Radiology/Procedures Radiology/Procedures [] Course & Med Decision Making Course & Med Decision Making Pertinent Labs and Imaging studies reviewed. (See chart for details) The patient presents with migraine headache. Gave IV fluids, toradol, compazine , benadryl. She felt better after treatment. Recommend rest, hydration, tylenol/ibuprofen for headache. Follow up with primary care physician in 2-3 days. Come back for high fever, worst headache of her life, numbness or weakness in arms or legs, uncontrolled vomiting, any otherwise worsening condition. The patient is being discharged home in stable condition. [] Dragon Disclaimer Dragon Disclaimer This electronic medical record was generated, in whole or in part, using a voice recognition dictation system. Departure Departure: Impression: Primary Impression: Migraine Disposition: HOME, SELF-CARE Condition: IMPROVED Referrals: HEYDI CANCHOLA MD (PCP) Patient Instructions: Migraine Headache, [id number] Additional Instructions: You were seen in the emergency department today for headache. Please rest, drink fluids to stay hydrated, use tylenol or ibuprofen for pain. Follow up with primary care physician in 2-3 days. Come back for high fever, worst headache of your life, sudden onset severe headache, numbness or weakness in arms or legs, uncontrolled vomiting, any otherwise worsening condition. JONATHAN TUTTLE MD Oct 02, 2017 08:34
[2017-10-02 08:44] LABS: BACTERIA,URINE MOD /HPF (0-FEW); BILIRUBIN,URINE NEG (NEG); CLARITY,URINE HAZY; COLOR,URINE YELLOW; GLUCOSE,URINE NEG (NEG); NITRITE,URINE NEG (NEG); RBC,URINE 0 /HPF (0-2); SQUAMOUS EPITHELIAL CELL,UR MOD /LPF; UROBILINOGEN,URINE 0.2 mg/dL (0.2 mg/dL); WBC,URINE OCC /HPF (0-4)
[2017-10-02 09:56] VITALS: BP 105/57
== END 2017-10-02 10:03 | disposition home or self-care (01) ==
LOC: ER 07:51
DX: G43.909 Migraine, unspecified, not intractable, without status migrainosus (principal); J45.909 Unspecified asthma, uncomplicated; Z88.6 Allergy status to analgesic agent; Z88.8 Allergy status to other drugs, medicaments and biological substances; Z88.5 Allergy status to narcotic agent
CPT/HCPCS: 81001; 81025; 87086; 96361; 96374; 96375; 99284; J0780; J1200; J1885; J3010; J7030

== ENCOUNTER 2017-11-10 19:30 | Emergency (ER) | payer OTHER ==
[~2017-11-10] VITALS: Ht 157.5 cm; Wt 84.8 kg
[2017-11-10 19:30] VITALS: BP 167/82
--- NOTE | 2017-11-10 20:14 | PHYS DOC ---
Past History Past Medical History: Asthma, Endometriosis, Other Past Surgical History: Cholecystectomy, , Other Smoking: Cigarettes Alcohol Use: None Drug Use: None Adult General Chief Complaint Chief Complaint: BACK PAIN OR INJURY HPI HPI Patient is a 32 year old female who presents with complaint of right lower back pain. Patient states she woke with the pain approximately 0700 this morning. Patient states that her pain has been sharp and worsens with movement and when taking a deep breath. Patient states the pain radiates around towards her right thigh. Patient denies any associated vaginal bleeding, dysuria, fever, or numbness involving the right lower extremity. Patient also denies any loss of bowel or bladder control, saddle anesthesia, or footdrop. Patient states that she has had similar symptoms in the past with a kidney infection but states that she is not having any symptoms that are similar to her previous episode. Patient denies any known history of back problems. Patient has had no increased exertion over the past few days prior to onset of symptoms. Patient rates her pain on my evaluation currently is 8 out of 10. Review of Systems Review of Systems Constitutional: Denies fever or chills [] Eyes: Denies change in visual acuity, redness, or eye pain [] HENT: Denies nasal congestion or sore throat [] Respiratory: Denies cough or shortness of breath [] Cardiovascular: Denies chest pain or edema[] GI: Denies abdominal pain, nausea, vomiting, bloody stools or diarrhea [] : Denies vaginal bleeding, dysuria or hematuria [] Musculoskeletal: Back pain[] Integument: Denies rash or skin lesions [] Neurologic: Denies headache, focal weakness or sensory changes [] All other systems were reviewed and found to be within normal limits, except as documented in this note. Allergies Allergies Allergies Coded Allergies Type Severity Reaction Last Updated Verified ibuprofen Allergy Intermediate 10/02/17 Yes oxycodone Allergy Intermediate 10/02/17 Yes propoxyphene Allergy Intermediate 10/02/17 Yes acetaminophen Allergy Unknown 08/09/79 Yes Physical Exam Physical Exam Constitutional: Alert, afebrile, no acute distress. [] HENT: Normocephalic, atraumatic, bilateral external ears normal, oropharynx moist, no oral exudates, nose normal. [] Eyes: PERRLA, EOMI, conjunctiva normal, no discharge. [] Neck: Normal range of motion, no tenderness, supple, no stridor. [] Cardiovascular:Heart rate regular rhythm, no murmur [] Lungs & Thorax: Bilateral breath sounds clear to auscultation [] Abdomen: Bowel sounds normal, soft, no tenderness, no masses, no pulsatile masses. [] Skin: Warm, dry, no erythema, no rash. [] Back: No midline tenderness, right or spinous muscle tenderness to palpation at lower lumbar spine, negative straight leg test, no CVA tenderness. [] Extremities: No tenderness, no cyanosis, no clubbing, ROM intact, no edema. [] Neurologic: Alert and oriented X 3, normal motor function, normal sensory function, no focal deficits noted. [] Current Patient Data Lab Results Laboratory Tests Test 11/10/17 19:48 Urine Collection Type Unknown Urine Color Yellow Urine Clarity Cloudy Urine pH 6.5 Urine Specific [place] 1.020 Urine Protein Trace Urine Glucose (UA) Neg mg/dL Urine Ketones (Stick) Neg mg/dL Urine Blood Small Urine Nitrite Neg Urine Bilirubin Neg Urine Urobilinogen Dipstick 0.2 mg/dL Urine Leukocyte Esterase Neg Urine RBC 6-10 /HPF Urine WBC 5-10 /HPF Urine Squamous Epithelial Cells Many /LPF Urine Bacteria Mod /HPF Urine Mucus Mod /LPF Urine Test Negative Current Medications Medications (Trade) Dose Ordered Sig/Hosea Route PRN Reason Start Time Stop Time Status Last Admin Dose Admin Ketorolac Tromethamine (Toradol) 30 mg 1X ONCE IM 11/10/17 20:30 11/10/17 20:31 DC 11/10/17 20:30 Acetaminophen/ Hydrocodone Bitart (Lortab 7.5/325) 1 tab 1X ONCE PO 11/10/17 20:30 11/10/17 20:31 DC 11/10/17 20:30 EKG EKG Not performed[] Radiology/Procedures Radiology/Procedures Not performed[] Course & Med Decision Making Course & Med Decision Making Pertinent Labs and Imaging studies reviewed. (See chart for details) Patient's symptoms appear to be consistent with low back muscle strain. Urinalysis shows likely contamination. As patient has no urinary symptoms at this time. I will defer any antibiotic treatment pending cultures. The patient will be treated with Medrol Dosepak and hydrocodone for outpatient treatment of low back pain. Advised patient to follow-up in 5 days with primary doctor for reevaluation and return to emergency department for any worsening symptoms. Patient was understanding and agreement with treatment plan. Dragon Disclaimer Dragon Disclaimer This electronic medical record was generated, in whole or in part, using a voice recognition dictation system. Departure Departure: Impression: Primary Impression: Low back pain Disposition: HOME, SELF-CARE Condition: IMPROVED Referrals: HEYDI CANCHOLA MD (PCP) Patient Instructions: Back Pain, Adult Additional Instructions: Follow-up with your primary doctor in the next 5 days for reevaluation. Return to the emergency department for any worsening symptoms. Scripts Hydrocodone Bit/Acetaminophen (NORCO 5-325 TABLET) 1 Each Tablet 1-2 TAB PO Q4-6HRS PRN for PAIN, #20 TAB Prov: HELEN COLE MD 11/10/17 Methylprednisolone (MEDROL) 4 Mg Tab.ds.pk 1 PKG PO UD, #1 PKG Prov: HELEN COLE MD 11/10/17 Problem Qualifiers Primary Impression: Low back pain Chronicity: acute Back pain laterality: right Sciatica presence: without sciatica Qualified Codes: M54.5 - Low back pain HELEN CLOE MD Nov 10, 2017 20:14
[2017-11-10] MEDS: HYDROcodone/APAP 7.5/325MG 1 TAB TABLET PO ONE (20:30)
[2017-11-10] MEDS: KETOROLAC 60 MG/2 ML VIAL. IM ONE (20:30)
[2017-11-10 20:42] LABS: BILIRUBIN,URINE NEG (NEG); CLARITY,URINE CLOUDY; COLOR,URINE YELLOW; GLUCOSE,URINE NEG (NEG); NITRITE,URINE NEG (NEG); U PREG PATIENT NEGATIVE (NEG); UROBILINOGEN,URINE 0.2 mg/dL (0.2 mg/dL)
[2017-11-10 20:43] LABS: BACTERIA,URINE MOD /HPF (0-FEW); SQUAMOUS EPITHELIAL CELL,UR MANY /LPF
[2017-11-10] MEDS ORDERED: HYDR-971 PO (21:04)
[2017-11-10] MEDS ORDERED: METH4TAB2 PO (21:04)
== END 2017-11-10 21:14 | disposition home or self-care (01) ==
LOC: ER 19:30
DX: M54.5 Low back pain (principal); J45.909 Unspecified asthma, uncomplicated; F17.210 Nicotine dependence, cigarettes, uncomplicated; Z88.6 Allergy status to analgesic agent; Z88.5 Allergy status to narcotic agent; Z88.8 Allergy status to other drugs, medicaments and biological substances
CPT/HCPCS: 81001; 81025; 87086; 96372; 99284; J1885

== ENCOUNTER 2018-01-07 10:50 | Emergency (ER) | payer OTHER ==
[~2018-01-07] VITALS: Ht 152.4 cm; Wt 91.6 kg
--- NOTE | 2018-01-07 11:41 | RAD ---
EXAM: Right small toe, 3 views. HISTORY: Blunt trauma. COMPARISON: None. FINDINGS: Frontal, lateral and oblique views of the right small toe are obtained. There is fusion of the distal interphalangeal joint, a normal variant. No displaced fracture is seen. IMPRESSION: No acute osseous finding. Electronically signed by: Elizabeth Conte MD (01/07/2018 11:37 AM) [facility]
[2018-01-07] MEDS ORDERED: TRAM-48 PO (12:09)
--- NOTE | 2018-01-07 12:09 | PHYS DOC ---
Past History Past Medical History: Asthma, Endometriosis, Other Past Surgical History: Cholecystectomy, , Other Smoking: Cigarettes Alcohol Use: None Drug Use: None Adult General Chief Complaint Chief Complaint: TOE PROBLEM HPI HPI 32-year-old female patient states she injured her right fifth toe last night while playing with her kids and since then she has had pain that gradually getting worse. Patient rated her pain 8/10 and is state the pain did not get better with apply ice on her toe. She denies focal neuro deficit and other injuries. Review of Systems Review of Systems Constitutional: Denies fever or chills [] Eyes: Denies change in visual acuity, redness, or eye pain [] HENT: Denies nasal congestion or sore throat [] Respiratory: Denies cough or shortness of breath [] Cardiovascular: No additional information not addressed in HPI [] GI: Denies abdominal pain, nausea, vomiting, bloody stools or diarrhea [] : Denies dysuria or hematuria [] Musculoskeletal: Denies back pain , reports joint pain [] Integument: Denies rash or skin lesions [] Neurologic: Denies headache, focal weakness or sensory changes [] Endocrine: Denies polyuria or polydipsia [] All other systems were reviewed and found to be within normal limits, except as documented in this note. Allergies Allergies Allergies Coded Allergies Type Severity Reaction Last Updated Verified ibuprofen Allergy Intermediate 10/02/17 Yes oxycodone Allergy Intermediate 10/02/17 Yes propoxyphene Allergy Intermediate 10/02/17 Yes acetaminophen Allergy Unknown 08/09/79 Yes Physical Exam Physical Exam Constitutional: Well developed, well nourished, mild distress, non-toxic appearance. [] HENT: Normocephalic, atraumatic Eyes: PERRLA, EOMI, conjunctiva normal, no discharge. [] Neck: Normal range of motion, no tenderness, supple, no stridor. [] Cardiovascular:Heart rate regular rhythm, no murmur [] Lungs & Thorax: Bilateral breath sounds clear to auscultation [ Abdomen: Bowel sounds normal, soft, no tenderness, no masses, no pulsatile masses. [] Skin: Warm, dry, no erythema, no rash. [] Back: No tenderness, no CVA tenderness. [] Extremities: Left foot without sign of injury or ecchymosis or erythema, exaggerated tenderness in right fifth toe, no cyanosis, no clubbing, ROM painfull, no edema. [] Neurologic: Alert and oriented X 3, normal motor function, normal sensory function, no focal deficits noted. [] Psychologic: Affect anxious, judgement normal, mood normal. [] Current Patient Data Vital Signs Vital Signs Date Time Temp Pulse Resp B/P (MAP) Pulse Ox O2 Delivery O2 Flow Rate FiO2 01/07/18 11:19 98.2 70 18 97 Room Air EKG EKG [] Radiology/Procedures Radiology/Procedures [][address] [address] IMAGING REPORT Signed PATIENT: LARRY STOVER ACCOUNT: [id number] : 1985 LOCATION: ER AGE: 32 SEX: F EXAM STATUS: REG ER ORD. PHYSICIAN: MARK BROWN MD REASON: 5th toe injury PROCEDURE: TOES RIGHT EXAM: Right small toe, 3 views. HISTORY: Blunt trauma. COMPARISON: None. FINDINGS: Frontal, lateral and oblique views of the right small toe are obtained. There is fusion of the distal interphalangeal joint, a normal variant. No displaced fracture is seen. IMPRESSION: No acute osseous finding. Electronically signed by: Elizabeth Prieto MD (01/07/2018 11:37 AM) [facility] DICTATED AND SIGNED BY: ELIZABETH PRIETO MD DATE: 01/07/18 1136 CC: MARK BROWN MD; HEYDI CANCHOLA MD ~ Course & Med Decision Making Course & Med Decision Making Pertinent Imaging studies reviewed. (See chart for details) Evaluation of patient in ER showed 31-year-old female patient with injury to right fifth toe last night. Patient had unremarkable exam and x-ray except for painful range of motion. Ortho shoes applied and prescription for Ultram was given. Patient was driving to ER by herself and didn't want to have pain medication in ER. Dragon Disclaimer Dragon Disclaimer This electronic medical record was generated, in whole or in part, using a voice recognition dictation system. Departure Departure: Impression: Primary Impression: Contusion of fifth toe, right Disposition: HOME, SELF-CARE (1207) Condition: STABLE Referrals: SUSHANT,HEYDI L MD (PCP) Patient Instructions: Contusion Additional Instructions: Apply ice on the affected area Follow-up with your primary care physician in 3-5 days Return to ER if not getting better Scripts Tramadol Hcl (ULTRAM) 50 Mg Tablet 50 MG PO PRN Q6HRS PRN for PAIN, #14 TAB Prov: MARK BROWN MD 01/07/18 MARK BROWN MD Jan 07, 2018 12:09
[2018-01-07 12:22] VITALS: BP 130/64
== END 2018-01-07 12:24 | disposition home or self-care (01) ==
LOC: ER 10:50
DX: S90.121A Contusion of right lesser toe(s) without damage to nail, initial encounter (principal); J45.909 Unspecified asthma, uncomplicated; F17.210 Nicotine dependence, cigarettes, uncomplicated; Z88.6 Allergy status to analgesic agent; Z88.5 Allergy status to narcotic agent; Z88.8 Allergy status to other drugs, medicaments and biological substances; X58.XXXA Exposure to other specified factors, initial encounter; Y93.89 Activity, other specified; Y92.89 Other specified places as the place of occurrence of the external cause; Y99.8 Other external cause status
CPT/HCPCS: 73660; 99284

== ENCOUNTER 2018-05-24 11:54 | Emergency (ER) | payer OTHER ==
[~2018-05-24] VITALS: Ht 154.9 cm; Wt 91.6 kg
[2018-05-24 11:54] VITALS: BP 117/69
[~2018-05-24 11:54] MED LIST changes: +HYDR-2155 PO; -HYDR-2758 PO; +HYDR-3165 PO; -HYDR-971 PO; +TRAM-48 PO
--- NOTE | 2018-05-24 12:23 | RAD ---
Right hand radiograph 05/24/2018 12:11 PM INDICATION: Middle finger stuck in bowling ball, still having pain. Swelling and bruising COMPARISON: None available. TECHNIQUE: 3 views of the right hand are provided. FINDINGS: There is no acute fracture or dislocation. Bone mineralization is within normal limits. Joint spaces are maintained. Regional soft tissues are within normal limits. There is no soft tissue gas or osseous erosion. IMPRESSION: No acute fracture or dislocation. Electronically signed by: Margie Frye MD (05/24/2018 12:19 PM) [facility]
--- NOTE | 2018-05-24 12:36 | PHYS DOC ---
Past History Past Medical History: Asthma, Endometriosis, Other Past Surgical History: Cholecystectomy, , Other Smoking: Cigarettes Alcohol Use: None Drug Use: None Adult General Chief Complaint Chief Complaint: HAND PROBLEM HPI HPI 32-year-old female presents with right ring finger pain. Patient was bowling 2 days ago when she went to release the ball her right ring finger got stuck in the hole. It had significant distracting force. The patient now has pain in her hand and forearm but it is worse with the right index finger. Any movement of that finger is painful. She has some bruising at the abdomen the PIP joint. Patient has been taking Motrin for pain but it is not working very well. He does seem to help the swelling. He denies any other trauma. Review of Systems Review of Systems Constitutional: Denies fever or chills [] Eyes: Denies change in visual acuity, redness, or eye pain [] HENT: Denies nasal congestion or sore throat [] Respiratory: Denies cough or shortness of breath [] Cardiovascular: No additional information not addressed in HPI [] GI: Denies abdominal pain, nausea, vomiting, bloody stools or diarrhea [] : Denies dysuria or hematuria [] Musculoskeletal: Right ring finger pain[] Integument: Denies rash or skin lesions [] Neurologic: Denies headache, focal weakness or sensory changes [] Endocrine: Denies polyuria or polydipsia [] All other systems were reviewed and found to be within normal limits, except as documented in this note. Allergies Allergies Allergies Coded Allergies Type Severity Reaction Last Updated Verified ibuprofen Allergy Intermediate 10/02/17 Yes oxycodone Allergy Intermediate 10/02/17 Yes propoxyphene Allergy Intermediate 10/02/17 Yes acetaminophen Allergy Unknown 08/09/79 Yes Physical Exam Physical Exam Constitutional: Well developed, well nourished, no acute distress, non-toxic appearance. [] HENT: Normocephalic, atraumatic, bilateral external ears normal, oropharynx moist, no oral exudates, nose normal. [] Eyes: PERRLA, EOMI, conjunctiva normal, no discharge. [] Neck: Normal range of motion, no tenderness, supple, no stridor. [] Cardiovascular:Heart rate regular rhythm, no murmur [] Lungs & Thorax: Bilateral breath sounds clear to auscultation [] Abdomen: Bowel sounds normal, soft, no tenderness, no masses, no pulsatile masses. [] Skin: Warm, dry, no erythema, no rash. [] Back: No tenderness, no CVA tenderness. [] Extremities: Tenderness of the right ring finger, ecchymosis at the PIP joint, no obvious deformity. Neurovascularly intact[] Neurologic: Alert and oriented X 3, normal motor function, normal sensory function, no focal deficits noted. [] Psychologic: Affect normal, judgement normal, mood normal. [] EKG EKG [] Radiology/Procedures Radiology/Procedures [] Impressions: Right hand radiograph 05/24/2018 12:11 PM INDICATION: Middle finger stuck in bowling ball, still having pain. Swelling and bruising COMPARISON: None available. TECHNIQUE: 3 views of the right hand are provided. FINDINGS: There is no acute fracture or dislocation. Bone mineralization is within normal limits. Joint spaces are maintained. Regional soft tissues are within normal limits. There is no soft tissue gas or osseous erosion. IMPRESSION: No acute fracture or dislocation. Electronically signed by: Gera Frye MD (05/24/2018 12:19 PM) [facility] DICTATED AND SIGNED BY: GERA FRYE MD DATE: 05/24/18 1218 CC: ARNALDO LAWTON DO; HEYDI CANCHOLA MD Course & Med Decision Making Course & Med Decision Making Pertinent Labs and Imaging studies reviewed. (See chart for details) The patient's x-rays negative for fracture or dislocation. It is swollen with some ecchymosis. It is obviously painful for the patient. We will place in a splint and kamala tape it to her middle finger. I will also give her tramadol Rx for pain. She is stable for discharge at this time. [] Dragon Disclaimer Dragon Disclaimer This electronic medical record was generated, in whole or in part, using a voice recognition dictation system. Departure Departure: Referrals: HEYDI CANCHOLA MD (PCP) ARNALDO LAWTON DO May 24, 2018 12:36
[2018-05-24] MEDS ORDERED: TRAM50TA PO (12:41)
== END 2018-05-24 12:48 | disposition home or self-care (01) ==
LOC: ER 11:54
DX: S60.041A Contusion of right ring finger without damage to nail, initial encounter (principal); J45.909 Unspecified asthma, uncomplicated; F17.210 Nicotine dependence, cigarettes, uncomplicated; Z88.6 Allergy status to analgesic agent; Z88.5 Allergy status to narcotic agent; Z88.8 Allergy status to other drugs, medicaments and biological substances; W21.09XA Struck by other hit or thrown ball, initial encounter; Y93.54 Activity, bowling; Y92.89 Other specified places as the place of occurrence of the external cause; Y99.8 Other external cause status
CPT/HCPCS: 73130; 99283

== ENCOUNTER 2018-06-07 08:29 | Emergency (ER) | payer OTHER ==
[~2018-06-07] VITALS: Ht 154.9 cm; Wt 92.0 kg
[2018-06-07 08:42] VITALS: BP 122/62
--- NOTE | 2018-06-07 08:58 | PHYS DOC ---
Past History Past Medical History: Asthma, Endometriosis, Seizure, Other Past Surgical History: Cholecystectomy, , Other Smoking: Cigarettes Alcohol Use: None Drug Use: None Adult General Chief Complaint Chief Complaint: DENTAL PROBLEM HPI HPI 32-year-old female presents with dental pain. The patient has had pain in the right lower mouth since yesterday. Patient has a known cracked tooth that occurred 2 weeks ago, but the pain has increased significantly yesterday and today. The patient had a tramadol prescription that she filled yesterday. She states that this helped with the pain a little bit and allowed her to sleep, but she still woke up with considerable pain. It is very tender to the touch. It is radiating up into her right ear. She denies fever or chills. Review of Systems Review of Systems Constitutional: Denies fever or chills [] Eyes: Denies change in visual acuity, redness, or eye pain [] HENT: Denies nasal congestion or sore throat. Dental pain [] Respiratory: Denies cough or shortness of breath [] Cardiovascular: No additional information not addressed in HPI [] GI: Denies abdominal pain, nausea, vomiting, bloody stools or diarrhea [] : Denies dysuria or hematuria [] Musculoskeletal: Denies back pain or joint pain [] Integument: Denies rash or skin lesions [] Neurologic: Denies headache, focal weakness or sensory changes [] Endocrine: Denies polyuria or polydipsia [] All other systems were reviewed and found to be within normal limits, except as documented in this note. Allergies Allergies Allergies Coded Allergies Type Severity Reaction Last Updated Verified ibuprofen Allergy Intermediate 10/02/17 Yes oxycodone Allergy Intermediate 10/02/17 Yes propoxyphene Allergy Intermediate 10/02/17 Yes acetaminophen Allergy Unknown 08/09/79 Yes Physical Exam Physical Exam Constitutional: Well developed, well nourished, no acute distress, non-toxic appearance. [] HENT: Normocephalic, atraumatic, bilateral external ears normal, oropharynx moist, no oral exudates, nose normal. Cracked tooth #31, erythematous surrounding gums [] Eyes: PERRLA, EOMI, conjunctiva normal, no discharge. [] Neck: Normal range of motion, no tenderness, supple, no stridor. [] Cardiovascular:Heart rate regular rhythm, no murmur [] Lungs & Thorax: Bilateral breath sounds clear to auscultation [] Abdomen: Bowel sounds normal, soft, no tenderness, no masses, no pulsatile masses. [] Skin: Warm, dry, no erythema, no rash. [] Back: No tenderness, no CVA tenderness. [] Extremities: No tenderness, no cyanosis, no clubbing, ROM intact, no edema. [] Neurologic: Alert and oriented X 3, normal motor function, normal sensory function, no focal deficits noted. [] Psychologic: Affect tearful, judgement normal, mood normal. [] Current Patient Data Vital Signs Vital Signs Date Time Temp Pulse Resp B/P (MAP) Pulse Ox O2 Delivery O2 Flow Rate FiO2 06/07/18 08:42 98.6 75 20 100 06/07/18 08:42 Room Air EKG EKG [] Radiology/Procedures Radiology/Procedures [] Course & Med Decision Making Course & Med Decision Making Pertinent Labs and Imaging studies reviewed. (See chart for details) The patient has a cracked tooth in the right lower quadrant. She filled the tramadol prescription yesterday and I think this will help with her pain. She has tried Orajel without relief. I'm concern for infection so I will treat her with Augmentin for 7 days. I have also advised that she call her dentist back and updated them on situation see if they can get her into something temporary or call the [facility] dental clinic to see if they can get her in. [] Dragon Disclaimer Dragon Disclaimer This electronic medical record was generated, in whole or in part, using a voice recognition dictation system. Departure Departure: Referrals: HEYDI CANCHOLA MD (PCP) ARNALDO LAWTON DO Jun 07, 2018 08:58
[2018-06-07] MEDS ORDERED: AMOX1TAB61 PO (09:02)
[2018-06-07] MEDS ORDERED: traMADol 50 MG TABLET PO ONE (09:15)
== END 2018-06-07 09:10 | disposition home or self-care (01) ==
LOC: ER 08:29
DX: K03.81 Cracked tooth (principal); J45.909 Unspecified asthma, uncomplicated; F17.210 Nicotine dependence, cigarettes, uncomplicated; Z88.6 Allergy status to analgesic agent; Z88.5 Allergy status to narcotic agent; Z88.8 Allergy status to other drugs, medicaments and biological substances
CPT/HCPCS: 99283

== ENCOUNTER 2018-11-29 20:32 | Observation (INO) | payer OTHER ==
[~2018-11-29] VITALS: Ht 157.5 cm; Wt 87.2 kg
[~2018-11-29 20:32] MED LIST changes: +AMOX1TAB61 PO
--- NOTE | 2018-11-29 21:11 | ED.ADGEN ---
Past History Past Medical History: Asthma, Endometriosis, Seizure, Other Past Surgical History: Appendectomy, Cholecystectomy, , Tubal ligation, Other Smoking: Cigarettes Alcohol Use: None Drug Use: None Adult General Chief Complaint Chief Complaint ".. I know I got an irregular heart rate.. but I have chest pain here on center and to the right.. since about 5 pm today.. it a 7/10.. nothing makes it better... ".. " I ve had pain like this before...".. " Only IV pain meds make it better..." HPI HPI Patient is a 33 year old female who presents with Rt sided chest pain and irregular heart rate. Pt. states she had 7/10 chest pain that is worse with deep breaths. Pt. denies cough or wheezing. Denies any fever or chills. Patient denies any trauma. Patient denies any travel or specific ill contacts. Patient denies any past history of pulmonary embolisms or DVT. Patient has followed with a film touch up inspector Dr. Musa who place a implant to monitor her heart rate. Patient normally follows with Dr. Enriquez for [facility]. [facility]. Does have prolonged QT intervals. Patient chest pain is reproducible palpations and deep breaths. Review of Systems Review of Systems Constitutional: Denies fever or chills [] Eyes: Denies change in visual acuity, redness, or eye pain [] HENT: Denies nasal congestion or sore throat [] Respiratory: Denies cough or shortness of breath [] Cardiovascular: No additional information not addressed in HPI [] GI: Denies abdominal pain, nausea, vomiting, bloody stools or diarrhea [] : Denies dysuria or hematuria [] Musculoskeletal: Denies back pain or joint pain [] Integument: Denies rash or skin lesions [] Neurologic: Denies headache, focal weakness or sensory changes [] Endocrine: Denies polyuria or polydipsia [] All other systems were reviewed and found to be within normal limits, except as documented in this note. Family History Family History There is a history of liver cancer with her mother and LVH and cardiac problems with her father age 60. Current Medications Current Medications Current Medications Medications (Trade) Dose Ordered Sig/Hosea Start Time Stop Time Status Last Admin Dose Admin Acetaminophen (Tylenol) 650 mg PRN Q4HRS PRN 6/22/19 22:30 11/30/18 22:29 UNV Aspirin (Children'S Aspirin) 324 mg 1X ONCE 11/29/18 21:30 11/29/18 21:31 DC 11/29/18 21:33 324 MG Enoxaparin Sodium (Lovenox 80mg Syringe) 80 mg 1X ONCE 11/29/18 23:00 11/29/18 23:01 DC 11/29/18 23:47 80 MG Famotidine (Pepcid Vial) 20 mg 1X ONCE 11/29/18 22:45 11/29/18 22:48 DC 11/29/18 22:45 20 MG Lactated Ringer's 1,000 ml @ 1,000 mls/hr Q1H 11/29/18 21:30 11/29/18 22:29 DC 11/29/18 21:35 1,000 MLS/HR Magnesium Hydroxide (Milk Of Magnesia) 2,400 mg 1X ONCE 11/29/18 23:30 11/29/18 23:31 DC 11/29/18 23:46 2,400 MG Morphine Sulfate (Morphine 10mg Syringe) 10 mg 1X ONCE 11/29/18 21:30 11/29/18 21:31 DC 11/29/18 21:34 10 MG Morphine Sulfate (Morphine 2mg Syringe) 2 mg PRN Q2HR PRN 11/29/18 22:30 11/30/18 22:29 Ondansetron HCl (Zofran) 4 mg PRN Q4HRS PRN 11/29/18 22:30 11/30/18 22:29 Allergies Allergies Allergies Coded Allergies Type Severity Reaction Last Updated Verified ibuprofen Allergy Intermediate 10/02/17 Yes oxycodone Allergy Intermediate 10/02/17 Yes propoxyphene Allergy Intermediate 10/02/17 Yes acetaminophen Allergy Unknown 08/09/79 Yes Physical Exam Physical Exam Constitutional: Moderately acute distress, non-toxic appearance. [] HENT: Normocephalic, atraumatic, bilateral external ears normal, oropharynx moist, no oral exudates, nose normal. [Very poor dentition Eyes: PERRLA, EOMI, conjunctiva normal, no discharge. [] Neck: Normal range of motion, no tenderness, supple, no stridor. [] Cardiovascular: Irregular Heart rate regular rhythm, no murmur []PMI is to the right Lungs & Thorax: Bilateral breath sounds equal apex on auscultation [] Abdomen: Bowel sounds normal, soft, no tenderness, no masses, no pulsatile masses. Obese. Old surgery scars. Skin: Warm, dry, no erythema, no rash. [] Back: No tenderness, no CVA tenderness. [] Extremities: No tenderness, no cyanosis, no clubbing, ROM intact, no edema. [] No cording appreciated Neurologic: Alert and oriented X 3, normal motor function, normal sensory function, no focal deficits noted. [] Psychologic: Affect anxious, judgement normal, mood normal. [] Current Patient Data Vital Signs Vital Signs Date Time Temp Pulse Resp B/P (MAP) Pulse Ox O2 Delivery O2 Flow Rate FiO2 11/29/18 21:34 18 96 Room Air 11/29/18 20:32 99.1 Lab Results Laboratory Tests Test 11/29/18 20:48 11/29/18 21:10 11/29/18 21:25 White Blood Count 12.3 x10^3/uL (4.0-11.0) H Red Blood Count 4.58 x10^6/uL (3.50-5.40) Hemoglobin 13.1 g/dL (12.0-15.5) Hematocrit 40.3 % (36.0-47.0) Mean Corpuscular Volume 88 fL (79-100) Mean Corpuscular Hemoglobin 29 pg (25-35) Mean Corpuscular Hemoglobin Concent 33 g/dL (31-37) Red Cell Distribution Width 14.9 % (11.5-14.5) H Platelet Count 315 x10^3/uL (140-400) Neutrophils (%) (Auto) 63 % (31-73) Lymphocytes (%) (Auto) 30 % (24-48) Monocytes (%) (Auto) 6 % (0-9) Eosinophils (%) (Auto) 1 % (0-3) Basophils (%) (Auto) 1 % (0-3) Neutrophils # (Auto) 7.8 x10^3uL (1.8-7.7) H Lymphocytes # (Auto) 3.6 x10^3/uL (1.0-4.8) Monocytes # (Auto) 0.7 x10^3/uL (0.0-1.1) Eosinophils # (Auto) 0.1 x10^3/uL (0.0-0.7) Basophils # (Auto) 0.1 x10^3/uL (0.0-0.2) Prothrombin Time 10.1 SEC (9.4-11.4) Prothrombin Time INR 1.0 (0.9-1.1) PTT 25 SEC (23-33) D-Dimer (Mari) 0.21 mg/L (0.00-0.50) Sodium Level 140 mmol/L (136-145) Potassium Level 3.5 mmol/L (3.5-5.1) Chloride Level 103 mmol/L (98-107) Carbon Dioxide Level 24 mmol/L (21-32) Anion Gap 13 (6-14) Blood Urea Nitrogen 10 mg/dL (7-20) Creatinine 1.0 mg/dL (0.6-1.0) Estimated GFR (Cockcroft-Gault) 63.5 Glucose Level 96 mg/dL (70-99) Calcium Level 8.7 mg/dL (8.5-10.1) Magnesium Level 2.1 mg/dL (1.8-2.4) Total Bilirubin 0.2 mg/dL (0.2-1.0) Direct Bilirubin < 0.1 mg/dL (0.0-0.2) Aspartate Amino Transferase (AST) 12 U/L (15-37) L Alanine Aminotransferase (ALT) 15 U/L (14-59) Alkaline Phosphatase 54 U/L (46-116) Creatine Kinase 147 U/L (26-192) Troponin I Quantitative < 0.017 ng/mL (0-0.055) NH-Tqi-T-Type Natriuretic Peptide 114 pg/mL (0-124) Total Protein 7.6 g/dL (6.4-8.2) Albumin 3.9 g/dL (3.4-5.0) Lipase 147 U/L (73-393) Urine Collection Type Unknown Urine Color Straw Urine Clarity Clear Urine pH 7.0 Urine Specific Hawthorne <=1.005 Urine Protein Neg (NEG-TRACE) Urine Glucose (UA) Neg mg/dL (NEG) Urine Ketones (Stick) Neg mg/dL (NEG) Urine Blood Trace (NEG) Urine Nitrite Neg (NEG) Urine Bilirubin Neg (NEG) Urine Urobilinogen Dipstick 0.2 mg/dL (0.2 mg/dL) Urine Leukocyte Esterase Neg (NEG) Urine RBC 1-2 /HPF (0-2) Urine WBC Occ /HPF (0-4) Urine Squamous Epithelial Cells Occ /LPF Urine Bacteria Few /HPF (0-FEW) Urine Opiates Screen Neg (NEG) Urine Methadone Screen Neg (NEG) Urine Barbiturates Neg (NEG) Urine Phencyclidine Screen Neg (NEG) Urine Amphetamine/Methamphetamine Neg (NEG) Urine Benzodiazepines Screen Neg (NEG) Urine Cocaine Screen Neg (NEG) Urine Cannabinoids Screen Neg (NEG) Urine Ethyl Alcohol Neg (NEG) POC Urine HCG, Qualitative hcg negative (Negative) EKG EKG My interpretation EKG shows a ventricular rate of 40 with bigeminy PVCs. Does have a prolonged QT interval. 442 ms QTC is 526.[] Radiology/Procedures Radiology/Procedures I interpretation of chest x-ray shows Dextrocardia Situs inversus. No large pulmonary infiltrate. Does have implant rt. chest wall. Course & Med Decision Making Course & Med Decision Making Pertinent Labs and Imaging studies reviewed. (See chart for details) Heart score 3-4 Patient management doctor Jalil with cardiology consult. [] Final Impression Final Impression 1. Chest Pain[] 2. Dextro Cardia- Situs inversus 3. Leukocytosis 12.3 4. Dysrhythmia Bigeminy, Prolonged QT Dragon Disclaimer Dragon Disclaimer This electronic medical record was generated, in whole or in part, using a voice recognition dictation system. Discharge Summary Visit Information Final Diagnosis Problems Medical Problems: (1) Chest pain Status: Acute Brief Hospital Course Allergies Allergies Coded Allergies Type Severity Reaction Last Updated Verified ibuprofen Allergy Intermediate 10/02/17 Yes oxycodone Allergy Intermediate 10/02/17 Yes propoxyphene Allergy Intermediate 10/02/17 Yes acetaminophen Allergy Unknown 08/09/79 Yes Vital Signs Vital Signs Date Time Temp Pulse Resp B/P (MAP) Pulse Ox O2 Delivery O2 Flow Rate FiO2 11/29/18 21:34 18 96 Room Air 11/29/18 20:32 99.1 Lab Results Laboratory Tests Test 11/29/18 20:48 11/29/18 21:10 11/29/18 21:25 White Blood Count 12.3 x10^3/uL (4.0-11.0) Red Blood Count 4.58 x10^6/uL (3.50-5.40) Hemoglobin 13.1 g/dL (12.0-15.5) Hematocrit 40.3 % (36.0-47.0) Mean Corpuscular Volume 88 fL (79-100) Mean Corpuscular Hemoglobin 29 pg (25-35) Mean Corpuscular Hemoglobin Concent 33 g/dL (31-37) Red Cell Distribution Width 14.9 % (11.5-14.5) Platelet Count 315 x10^3/uL (140-400) Neutrophils (%) (Auto) 63 % (31-73) Lymphocytes (%) (Auto) 30 % (24-48) Monocytes (%) (Auto) 6 % (0-9) Eosinophils (%) (Auto) 1 % (0-3) Basophils (%) (Auto) 1 % (0-3) Neutrophils # (Auto) 7.8 x10^3uL (1.8-7.7) Lymphocytes # (Auto) 3.6 x10^3/uL (1.0-4.8) Monocytes # (Auto) 0.7 x10^3/uL (0.0-1.1) Eosinophils # (Auto) 0.1 x10^3/uL (0.0-0.7) Basophils # (Auto) 0.1 x10^3/uL (0.0-0.2) Prothrombin Time 10.1 SEC (9.4-11.4) Prothromb Time International Ratio 1.0 (0.9-1.1) Activated Partial Thromboplast Time 25 SEC (23-33) D-Dimer (Mari) 0.21 mg/L (0.00-0.50) Sodium Level 140 mmol/L (136-145) Potassium Level 3.5 mmol/L (3.5-5.1) Chloride Level 103 mmol/L (98-107) Carbon Dioxide Level 24 mmol/L (21-32) Anion Gap 13 (6-14) Blood Urea Nitrogen 10 mg/dL (7-20) Creatinine 1.0 mg/dL (0.6-1.0) Estimated GFR (Cockcroft-Gault) 63.5 Glucose Level 96 mg/dL (70-99) Calcium Level 8.7 mg/dL (8.5-10.1) Magnesium Level 2.1 mg/dL (1.8-2.4) Total Bilirubin 0.2 mg/dL (0.2-1.0) Direct Bilirubin < 0.1 mg/dL (0.0-0.2) Aspartate Amino Transf (AST/SGOT) 12 U/L (15-37) Alanine Aminotransferase (ALT/SGPT) 15 U/L (14-59) Alkaline Phosphatase 54 U/L (46-116) Creatine Kinase 147 U/L (26-192) Troponin I Quantitative < 0.017 ng/mL (0-0.055) AI-Nvj-M-Type Natriuretic Peptide 114 pg/mL (0-124) Total Protein 7.6 g/dL (6.4-8.2) Albumin 3.9 g/dL (3.4-5.0) Lipase 147 U/L (73-393) Urine Collection Type Unknown Urine Color Straw Urine Clarity Clear Urine pH 7.0 Urine Specific Hawthorne <=1.005 Urine Protein Neg (NEG-TRACE) Urine Glucose (UA) Neg mg/dL (NEG) Urine Ketones (Stick) Neg mg/dL (NEG) Urine Blood Trace (NEG) Urine Nitrite Neg (NEG) Urine Bilirubin Neg (NEG) Urine Urobilinogen Dipstick 0.2 mg/dL (0.2 mg/dL) Urine Leukocyte Esterase Neg (NEG) Urine RBC 1-2 /HPF (0-2) Urine WBC Occ /HPF (0-4) Urine Squamous Epithelial Cells Occ /LPF Urine Bacteria Few /HPF (0-FEW) Urine Opiates Screen Neg (NEG) Urine Methadone Screen Neg (NEG) Urine Barbiturates Neg (NEG) Urine Phencyclidine Screen Neg (NEG) Urine Amphetamine/Methamphetamine Neg (NEG) Urine Benzodiazepines Screen Neg (NEG) Urine Cocaine Screen Neg (NEG) Urine Cannabinoids Screen Neg (NEG) Urine Ethyl Alcohol Neg (NEG) Bedside Urine HCG, Qualitative hcg negative (Negative) Brief Hospital Course Ms. Arceo is a 33 old female who presented with chest pain that has pleuritic components however she has bigeminy on her EKG. Admitted to Dr. Jimenes with card iology consult Discharge Information Condition at Discharge: Improved Dischare Medications Current Medications Aspirin (Children'S Aspirin) 324 mg 1X ONCE PO Last administered on 11/29/18at 21:33; Admin Dose 324 MG; Start 11/29/18 at 21:30; Stop 11/29/18 at 21:31; Status DC Lactated Ringer's 1,000 ml @ 1,000 mls/hr Q1H IV Last administered on 11/29/18at 21:35; Admin Dose 1,000 MLS/HR; Start 11/29/18 at 21:30; Stop 11/29/18 at 22:29; Status DC Ondansetron HCl (Zofran) 8 mg 1X ONCE IV Last administered on 11/29/18at 21:35; Admin Dose 8 MG; Start 11/29/18 at 21:30; Stop 11/29/18 at 21:31; Status DC Morphine Sulfate (Morphine 10mg Syringe) 10 mg 1X ONCE SQ Last administered on 11/29/18at 21:34; Admin Dose 10 MG; Start 11/29/18 at 21:30; Stop 11/29/18 at 21:31; Status DC Enoxaparin Sodium (Lovenox 80mg Syringe) 80 mg 1X ONCE SQ Last administered on 11/29/18at 23:47; Admin Dose 80 MG; Start 11/29/18 at 23:00; Stop 11/29/18 at 23:01; Status DC Ondansetron HCl (Zofran) 4 mg PRN Q4HRS PRN IV NAUSEA/VOMITING; Start 11/29/18 at 22:30; Stop 11/30/18 at 22:29 Morphine Sulfate (Morphine 2mg Syringe) 2 mg PRN Q2HR PRN IV PAIN; Start 11/29/18 at 22:30; Stop 11/30/18 at 22:29 Acetaminophen (Tylenol) 650 mg PRN Q4HRS PRN PO FEVER; Start 11/29/18 at 22:30; Stop 11/30/18 at 22:29; Status UNV Famotidine (Pepcid Vial) 20 mg 1X ONCE IVP Last administered on 11/29/18at 22:45; Admin Dose 20 MG; Start 11/29/18 at 22:45; Stop 11/29/18 at 22:48; S betsyus DC Magnesium Hydroxide (Milk Of Magnesia) 2,400 mg 1X ONCE PO Last administered on 11/29/18at 23:46; Admin Dose 2,400 MG; Start 11/29/18 at 23:30; Stop 11/29/18 at 23:31; Status DC Active Scripts Active Reported Proair Hfa Inhaler (Albuterol Sulfate) 8.5 Gm Hfa.aer.ad 2 Puff INH PRN Q6HRS PRN Dragon Disclaimer This chart was dictated in whole or in part using Voice Recognition software in a busy, high-work load, and often noisy Emergency Department environment. It may contain unintended and wholly unrecognized errors or omissions. JANUSZ TARIQ MD Nov 29, 2018 21:11
[2018-11-29 21:26] LABS: BASO # 0.1 x10^3/uL (0.0-0.2); BASO % 1 % (0-3); EOS # 0.1 x10^3/uL (0.0-0.7); EOS % 1 % (0-3); HEMATOCRIT 40.3 % (36.0-47.0); HEMOGLOBIN 13.1 g/dL (12.0-15.5); LYMPH # 3.6 x10^3/uL (1.0-4.8); LYMPH % 30 % (24-48); MEAN CORPUSCULAR HEMOGLOBIN 29 pg (25-35); MEAN CORPUSCULAR HGB CONC 33 g/dL (31-37); MEAN CORPUSCULAR VOLUME 88 fL (79-100); MONO # 0.7 x10^3/uL (0.0-1.1); MONO % 6 % (0-9); NEUT # 7.8 x10^3uL (1.8-7.7); NEUT % 63 % (31-73); PLATELET COUNT 315 x10^3/uL (140-400); RED BLOOD COUNT 4.58 x10^6/uL (3.50-5.40); RED CELL DISTRIBUTION WIDTH 14.9 % (11.5-14.5); WHITE BLOOD COUNT 12.3 x10^3/uL (4.0-11.0)
[2018-11-29] MEDS ORDERED: MORPHINE SULFATE 10 MG/ML SYRINGE. SQ ONE (21:30)
[2018-11-29] MEDS ORDERED: ONDANSETRON PF 4 MG/2 ML VIAL. IV ONE (21:30)
[2018-11-29] MEDS ORDERED: IV RINGERS SOLUTION,LACTATED 1,000 ML IV SCH (21:30)
[2018-11-29] MEDS ORDERED: ASPIRIN 81 MG TAB.CHEW PO ONE (21:30)
[2018-11-29 21:39] LABS: ALBUMIN 3.9 g/dL (3.4-5.0); ALK PHOS 54 U/L (46-116); ALT (SGPT) 15 U/L (14-59); ANION GAP 13 (6-14); AST (SGOT) 12 U/L (15-37); BLOOD UREA NITROGEN 10 mg/dL (7-20); CALCIUM 8.7 mg/dL (8.5-10.1); CARBON DIOXIDE 24 mmol/L (21-32); CHLORIDE 103 mmol/L (98-107); GFR 63.5; GLUCOSE 96 mg/dL (70-99); LIPASE 147 U/L (73-393); MAGNESIUM 2.1 mg/dL (1.8-2.4); POTASSIUM 3.5 mmol/L (3.5-5.1); SODIUM 140 mmol/L (136-145); TOTAL BILIRUBIN 0.2 mg/dL (0.2-1.0); TOTAL PROTEIN 7.6 g/dL (6.4-8.2)
[2018-11-29 21:40] LABS: BARBITURATES NEG (NEG); BENZODIAZEPINES NEG (NEG); CANNABINOIDS NEG (NEG); COCAINE NEG (NEG); METHADONE NEG (NEG); OPIATES NEG (NEG); PHENCYCLIDINE NEG (NEG)
[2018-11-29 21:43] LABS: DIRECT BILIRUBIN < 0.1 mg/dL (0.0-0.2)
[2018-11-29 21:43] LABS: AMPHETAMINE/METHAMPHETAMINE NEG (NEG)
[2018-11-29 22:12] LABS: BACTERIA,URINE FEW /HPF (0-FEW); BILIRUBIN,URINE NEG (NEG); CLARITY,URINE CLEAR; COLOR,URINE STRAW; GLUCOSE,URINE NEG (NEG); NITRITE,URINE NEG (NEG); SQUAMOUS EPITHELIAL CELL,UR OCC /LPF; UROBILINOGEN,URINE 0.2 mg/dL (0.2 mg/dL); WBC,URINE OCC /HPF (0-4)
[2018-11-29] MEDS ORDERED: ONDANSETRON PF 4 MG/2 ML VIAL. IV PRN (22:30)
[2018-11-29] MEDS ORDERED: ACETAMINOPHEN 325 MG TABLET PO PRN (22:30)
[2018-11-29] MEDS ORDERED: MORPHINE SULFATE 2 MG/ML DISP.SYRIN. IV PRN (22:30)
[2018-11-29] MEDS ORDERED: FAMOTIDINE 20 MG/2 ML VIAL IVP ONE (22:45)
[2018-11-29] MEDS ORDERED: ENOXAPARIN ** NOTE DOSE ** SYRINGE SQ ONE (23:00)
[2018-11-29] MEDS ORDERED: MAGNESIUM HYDROXIDE 2,400 MG/30 ML ORAL.SUSP. PO ONE (23:30)
[2018-11-30] VITALS (7 sets, daily range): BP systolic 93–124; BP diastolic 51–69
--- NOTE | 2018-11-30 00:35 | NUR ---
Pt admitted to ICU bed 4 from ER, via [facility], accompanied by EMS and nursing staff. Pt transferred from [facility] to bed independently, steady gait noted. Admission assessment completed. VSS. Pt here for c/o chest pain/palpitations, dizziness and SOA. Pt started that she "a implanted microchip in her heart and her heart is on the right side of her chest." Health history and home medications reviewed with pt. Lovenox for VTE. MRSA swab obtained. Pt lives at home with family. Pt is a everyday smoker, smoking cessation order placed. Two more sets of CE/troponin ordered. POC reviewed with pt, understanding verbalized. Call light within reach. Pt given box lunch per request.
[2018-11-30] MEDS ORDERED: ALBU2.5V8 INH (02:24)
--- NOTE | 2018-11-30 03:47 | RAD ---
Chest radiograph 11/29/2018 9:02 PM INDICATION: Chest pain COMPARISON: July 31, 2017 TECHNIQUE: Portable upright frontal view of the chest is provided. FINDINGS: The cardiomediastinal silhouette is within normal limits. There are no pleural effusions. There is no pulmonary vascular congestion. There is no pneumothorax. The lungs are clear. Cardiac monitoring device projects over the right chest. No significant osseous abnormality is identified. IMPRESSION: No acute cardiopulmonary process. Electronically signed by: Margie Frye MD (11/30/2018 3:44 AM) [id number]
[2018-11-30] MEDS ORDERED: ACETAMINOPHEN 325 MG TABLET PO PRN (05:15)
--- NOTE | 2018-11-30 06:37 | EKG ---
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
[2018-11-30 07:00] LABS: CALCIUM 8.4 mg/dL (8.5-10.1); GFR 63.5; POTASSIUM 3.7 mmol/L (3.5-5.1)
[2018-11-30 07:03] LABS: BASO # 0.1 x10^3/uL (0.0-0.2); BASO % 1 % (0-3); EOS # 0.1 x10^3/uL (0.0-0.7); EOS % 1 % (0-3); HEMATOCRIT 34.9 % (36.0-47.0); HEMOGLOBIN 11.4 g/dL (12.0-15.5); LYMPH # 4.3 x10^3/uL (1.0-4.8); LYMPH % 40 % (24-48); MEAN CORPUSCULAR HEMOGLOBIN 29 pg (25-35); MEAN CORPUSCULAR HGB CONC 33 g/dL (31-37); MEAN CORPUSCULAR VOLUME 88 fL (79-100); MONO # 0.6 x10^3/uL (0.0-1.1); MONO % 6 % (0-9); NEUT # 5.6 x10^3uL (1.8-7.7); NEUT % 52 % (31-73); PLATELET COUNT 273 x10^3/uL (140-400); RED BLOOD COUNT 3.98 x10^6/uL (3.50-5.40); WHITE BLOOD COUNT 10.6 x10^3/uL (4.0-11.0)
[2018-11-30] MEDS: ASPIRIN 81 MG TAB.CHEW PO SCH (09:15)
[2018-11-30] MEDS: ENOXAPARIN ** NOTE DOSE ** SYRINGE SQ SCH ×2 (09:16→20:57)
[2018-11-30 10:50] LABS: THYROID STIM HORMONE (TSH) 3.901 uIU/mL (0.358-3.740)
--- NOTE | 2018-11-30 13:22 | PDOC2 ---
CONSULT Date of Admission DATE: 11/30/18 TIME: 13:22 Reason for Consult: Roxana Referring Physician: Dr. Jimenes Chief Complaint Chest pain Source: Chart review, Patient Problem List Problems Medical Problems: (1) Chest pain Status: Acute History of Present Illness 33-year-old female presented complaining of retrosternal chest pain, 7/10 severity associated with mild shortness of breath that started yesterday. She stated that the pain is worse with movement of her body and deep inspiration. She denied any exertional component. EKG showed bigeminy and hence we have been consulted. Currently, she was being evaluated for cardiac arrhythmias by Dr. Musa from [facility]. She underwent loop recorder implantation 2 years ago. She denied any orthopnea/PND, palpitations or syncope. Past Medical History Dextrocardia Asthma Cardiac arrhythmia Past Surgical History Appendectomy Exploratory laparotomy for endometriosis Cholecystectomy section Family History Negative for premature coronary artery disease Social History Patient smokes 4 cigarettes daily and denied any alcohol or drug use. Current Medications Current Medications Aspirin (Children'S Aspirin) 324 mg 1X ONCE PO Last administered on 11/29/18at 21:33; Start 11/29/18 at 21:30; Stop 11/29/18 at 21:31; Status DC Lactated Ringer's 1,000 ml @ 1,000 mls/hr Q1H IV Last administered on 11/29/18at 21:35; Start 11/29/18 at 21:30; Stop 11/29/18 at 22:29; Status DC Ondansetron HCl (Zofran) 8 mg 1X ONCE IV Last administered on 11/29/18at 21:35; Start 11/29/18 at 21:30; Stop 11/29/18 at 21:31; Status DC Morphine Sulfate (Morphine 10mg Syringe) 10 mg 1X ONCE SQ Last administered on 11/29/18at 21:34; Start 11/29/18 at 21:30; Stop 11/29/18 at 21:31; Status DC Enoxaparin Sodium (Lovenox 80mg Syringe) 80 mg 1X ONCE SQ Last administered on 11/29/18at 23:47; Start 11/29/18 at 23:00; Stop 11/29/18 at 23:01; Status DC Ondansetron HCl (Zofran) 4 mg PRN Q4HRS PRN IV NAUSEA/VOMITING; Start 11/29/18 at 22:30; Stop 11/30/18 at 22:29 Morphine Sulfate (Morphine 2mg Syringe) 2 mg PRN Q2HR PRN IV PAIN; Start 11/29/18 at 22:30; Stop 11/30/18 at 22:29 Acetaminophen (Tylenol) 650 mg PRN Q4HRS PRN PO FEVER; Start 11/29/18 at 22:30; Stop 11/30/18 at 22:29; Status UNV Enoxaparin Sodium (Lovenox 80mg Syringe) 80 mg BID SQ Last administered on 11/30/18at 09:16; Start 11/30/18 at 09:00 Aspirin (Children'S Aspirin) 81 mg DAILY PO Last administered on 11/30/18at 09:15; Start 11/30/18 at 09:00 Famotidine (Pepcid Vial) 20 mg 1X ONCE IVP Last administered on 11/29/18at 22:45; Start 11/29/18 at 22:45; Stop 11/29/18 at 22:48; Status DC Magnesium Hydroxide (Milk Of Magnesia) 2,400 mg 1X ONCE PO Last administered on 11/29/18at 23:46; Start 11/29/18 at 23:30; Stop 11/29/18 at 23:31; Status DC Acetaminophen (Tylenol) 650 mg PRN Q4HRS PRN PO FEVER; Start 11/30/18 at 05:15 Active Scripts Active Reported Proair Hfa Inhaler (Albuterol Sulfate) 8.5 Gm Hfa.aer.ad 2 Puff INH PRN Q6HRS PRN Allergies: Coded Allergies: ibuprofen (Verified Allergy, Intermediate, 10/02/17) oxycodone (Verified Allergy, Intermediate, 10/02/17) propoxyphene (Verified Allergy, Intermediate, 10/02/17) PSYCHOLOGICAL ROS: No: Hallucinations Eyes: No: Loss of vision HEENT: No: Epistaxis Respiratory: YES: Shortness of breath; No: Hemoptysis Cardiovascular: yes: Chest Pain; No: Palpitations Gastrointestinal: No: Vomiting, Diarrhea Genitourinary: No: Henaturia Skin: No: Rash General: Alert, Oriented X3 HEENT: Atraumatic, PERRLA Lungs: Clear to auscultation Heart: Regular rate Abdomen: Soft, No tenderness Neuro: Normal tone Psych/Mental Status: Mood NL VITALS Vital Signs Date Time Temp Pulse Resp B/P (MAP) Pulse Ox O2 Delivery O2 Flow Rate FiO2 11/30/18 11:33 98.1 55 18 117/62 (80) 98 Room Air Labs Laboratory Tests Test 11/29/18 20:48 11/29/18 21:10 11/29/18 21:25 11/30/18 02:00 White Blood Count 12.3 x10^3/uL (4.0-11.0) Red Blood Count 4.58 x10^6/uL (3.50-5.40) Hemoglobin 13.1 g/dL (12.0-15.5) Hematocrit 40.3 % (36.0-47.0) Mean Corpuscular Volume 88 fL (79-100) Mean Corpuscular Hemoglobin 29 pg (25-35) Mean Corpuscular Hemoglobin Concent 33 g/dL (31-37) Red Cell Distribution Width 14.9 % (11.5-14.5) Platelet Count 315 x10^3/uL (140-400) Neutrophils (%) (Auto) 63 % (31-73) Lymphocytes (%) (Auto) 30 % (24-48) Monocytes (%) (Auto) 6 % (0-9) Eosinophils (%) (Auto) 1 % (0-3) Basophils (%) (Auto) 1 % (0-3) Neutrophils # (Auto) 7.8 x10^3uL (1.8-7.7) Lymphocytes # (Auto) 3.6 x10^3/uL (1.0-4.8) Monocytes # (Auto) 0.7 x10^3/uL (0.0-1.1) Eosinophils # (Auto) 0.1 x10^3/uL (0.0-0.7) Basophils # (Auto) 0.1 x10^3/uL (0.0-0.2) Prothrombin Time 10.1 SEC (9.4-11.4) Prothromb Time International Ratio 1.0 (0.9-1.1) Activated Partial Thromboplast Time 25 SEC (23-33) D-Dimer (Mari) 0.21 mg/L (0.00-0.50) Sodium Level 140 mmol/L (136-145) Potassium Level 3.5 mmol/L (3.5-5.1) Chloride Level 103 mmol/L (98-107) Carbon Dioxide Level 24 mmol/L (21-32) Anion Gap 13 (6-14) Blood Urea Nitrogen 10 mg/dL (7-20) Creatinine 1.0 mg/dL (0.6-1.0) Estimated GFR (Cockcroft-Gault) 63.5 Glucose Level 96 mg/dL (70-99) Calcium Level 8.7 mg/dL (8.5-10.1) Magnesium Level 2.1 mg/dL (1.8-2.4) Total Bilirubin 0.2 mg/dL (0.2-1.0) Direct Bilirubin < 0.1 mg/dL (0.0-0.2) Aspartate Amino Transf (AST/SGOT) 12 U/L (15-37) Alanine Aminotransferase (ALT/SGPT) 15 U/L (14-59) Alkaline Phosphatase 54 U/L (46-116) Creatine Kinase 147 U/L (26-192) Troponin I Quantitative < 0.017 ng/mL (0-0.055) < 0.017 ng/mL (0-0.055) SE-Uan-H-Type Natriuretic Peptide 114 pg/mL (0-124) Total Protein 7.6 g/dL (6.4-8.2) Albumin 3.9 g/dL (3.4-5.0) Triglycerides Level 187 mg/dL (0-150) Cholesterol Level 207 mg/dL (0-200) LDL Cholesterol, Calculated 129 mg/dL (0-100) VLDL Cholesterol, Calculated 37 mg/dL (0-40) Non-HDL Cholesterol Calculated 166 mg/dL (0-129) HDL Cholesterol 41 mg/dL (40-60) Cholesterol/HDL Ratio 5.0 Lipase 147 U/L (73-393) Thyroid Stimulating Hormone (TSH) 3.901 uIU/mL (0.358-3.740) Urine Collection Type Unknown Urine Color Straw Urine Clarity Clear Urine pH 7.0 Urine Specific [place] <=1.005 Urine Protein Neg (NEG-TRACE) Urine Glucose (UA) Neg mg/dL (NEG) Urine Ketones (Stick) Neg mg/dL (NEG) Urine Blood Trace (NEG) Urine Nitrite Neg (NEG) Urine Bilirubin Neg (NEG) Urine Urobilinogen Dipstick 0.2 mg/dL (0.2 mg/dL) Urine Leukocyte Esterase Neg (NEG) Urine RBC 1-2 /HPF (0-2) Urine WBC Occ /HPF (0-4) Urine Squamous Epithelial Cells Occ /LPF Urine Bacteria Few /HPF (0-FEW) Urine Opiates Screen Neg (NEG) Urine Methadone Screen Neg (NEG) Urine Barbiturates Neg (NEG) Urine Phencyclidine Screen Neg (NEG) Urine Amphetamine/Methamphetamine Neg (NEG) Urine Benzodiazepines Screen Neg (NEG) Urine Cocaine Screen Neg (NEG) Urine Cannabinoids Screen Neg (NEG) Urine Ethyl Alcohol Neg (NEG) Bedside Urine HCG, Qualitative hcg negative (Negative) Test 11/30/18 06:20 White Blood Count 10.6 x10^3/uL (4.0-11.0) Red Blood Count 3.98 x10^6/uL (3.50-5.40) Hemoglobin 11.4 g/dL (12.0-15.5) Hematocrit 34.9 % (36.0-47.0) Mean Corpuscular Volume 88 fL (79-100) Mean Corpuscular Hemoglobin 29 pg (25-35) Mean Corpuscular Hemoglobin Concent 33 g/dL (31-37) Red Cell Distribution Width 15.0 % (11.5-14.5) Platelet Count 273 x10^3/uL (140-400) Neutrophils (%) (Auto) 52 % (31-73) Lymphocytes (%) (Auto) 40 % (24-48) Monocytes (%) (Auto) 6 % (0-9) Eosinophils (%) (Auto) 1 % (0-3) Basophils (%) (Auto) 1 % (0-3) Neutrophils # (Auto) 5.6 x10^3uL (1.8-7.7) Lymphocytes # (Auto) 4.3 x10^3/uL (1.0-4.8) Monocytes # (Auto) 0.6 x10^3/uL (0.0-1.1) Eosinophils # (Auto) 0.1 x10^3/uL (0.0-0.7) Basophils # (Auto) 0.1 x10^3/uL (0.0-0.2) Sodium Level 141 mmol/L (136-145) Potassium Level 3.7 mmol/L (3.5-5.1) Chloride Level 104 mmol/L (98-107) Carbon Dioxide Level 27 mmol/L (21-32) Anion Gap 10 (6-14) Blood Urea Nitrogen 10 mg/dL (7-20) Creatinine 1.0 mg/dL (0.6-1.0) Estimated GFR (Cockcroft-Gault) 63.5 Glucose Level 59 mg/dL (70-99) Calcium Level 8.4 mg/dL (8.5-10.1) Troponin I Quantitative < 0.017 ng/mL (0-0.055) Assessment/Plan 1. Chest pain with atypical features, reproducible to palpation and most probably musculoskeletal. Myocardial infarction has been ruled out. Check 2-D echo to assess LV function and rule out wall motion abnormalities. 2. Ventricular bigeminy: Presently resolved. Magnesium level normal. We will have patient's loop recorder interrogated to assess PVC burden and consider beta blockers. 3. Hyperlipidemia on lipid profile: Patient was advised stricter diet control and regular exercise regimen. Repeat fasting lipid profile in 3 months to evaluate the need for statin therapy. 4. Dextrocardia Thank you for your consultation. MORALES VASQUEZ MD Nov 30, 2018 13:22
--- NOTE | 2018-11-30 14:46 | HP ---
ADMIT DATE: 11/30/2018 HISTORY OF PRESENT ILLNESS: The patient is a 33-year-old female patient who basically came complaining of chest pain, retrosternal that started at 5:30 in the afternoon yesterday while working at the [employer]. She rated that about 7/10, associated with shortness of breath, but denied any nausea or vomiting, denied any radiation, denied any diaphoresis and the pain has been continuous. She stated that she has had pain like that before and only IV pain medication makes it better. She apparently has a microchip put by [facility] that belongs to [facility] and the last time she saw them was in February 2018 and at that time, she was told that everything was fine. She was extensively evaluated in the Emergency Room and has had an EKG, which showed that she was sinus rhythm with multiple ventricular ectopic beat. She actually has also very short MD interval. Her first set of cardiac enzyme was negative and showed troponin to be less than 0.017 and therefore, the patient was admitted to do 2 more sets of cardiac enzyme and to consult the cardiology team. PAST MEDICAL HISTORY: Significant for bronchial asthma, convulsive syncope, dextrocardia, multiple premature ventricular contractions. PAST SURGICAL HISTORY: Significant for 6 exploratory laparotomies for endometriosis, has had appendectomy, cholecystectomy and 2 sections. ALLERGIES: She is allergic to DARVOCET, PERCOCET, MOTRIN and OXYCODONE. MEDICATIONS: She is currently on albuterol inhaler 2 puffs every 6 hours as needed. FAMILY HISTORY: She has 3 sisters and 1 brother, all older. One sister has epilepsy and 3 of them have bronchial asthma. Her father is still alive at age of 60, is known to have hypertension and left ventricular hypertrophy. Her mother at age of 51 because of liver cancer. SOCIAL HISTORY: She is , has 2 daughters and 1 son. She smokes 4 cigarettes per day. Does not drink alcohol or use recreational drugs. 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 REVIEW OF SYSTEMS: The patient denied any blurring of vision, cataract, glaucoma or macular degeneration. Denied any earache, tinnitus or sensorineural deafness. Denied any nosebleeds, stuffy nose or postnasal drip. Denied any sore throat, sore tongue. Denied any nausea, vomiting, diarrhea or constipation. Denied any hematemesis, melena or hematochezia. Did complain of frequency, but denied any dysuria or hematuria. Did complain of chest pain and shortness of breath, but denied any orthopnea or paroxysmal nocturnal dyspnea. Denied any cough, phlegm or hemoptysis. Denied any chills, rigors, or fever. Denied any dizziness, lightheadedness, or vertigo. PHYSICAL EXAMINATION: GENERAL: On arrival to the Emergency Room, apparently she looked well and was clearly in no apparent respiratory distress. No pallor, jaundice, cyanosis, or thyromegaly. No jugular venous distension. No lower limb edema. VITAL SIGNS: Her heart rate was 71, blood pressure was 110/31, temperature was 98, respiratory rate was 16 and oxygen saturation was 96%. EXAMINATION OF THE HEAD, EYES, EARS, NOSE AND THROAT: Normocephalic, atraumatic. NECK: Supple. HEART: Showed normal first and second heart sounds with no gallop, rub or murmur. CHEST: Shows central trachea, equal bilateral expansion, air entry, vesicular breath sounds. No crepitation or rhonchi. ABDOMEN: Distended, soft, nontender. No guarding or rigidity. No organomegaly. All hernial orifices intact. Bowel sounds normal. NEUROLOGIC: She is awake, alert, responding appropriately. All her cranial nerves are intact. EXTREMITIES: She moves extremities without difficulty. She ambulates without assistance or assistive devices. LABORATORY DATA: On arrival showed a white cell count 12,300, hemoglobin 13, hematocrit 40, MCV 88 and platelet count 315,000 with normal manual differential. Her prothrombin time was 10, INR 1, aPTT 25. D-dimer was 0.21. Her chemistry showed a serum sodium 140, potassium 3.5, chloride 103, bicarbonate 24, anion gap of 13, BUN 10, creatinine 1, estimated GFR was 63 mL per minute. Her glucose was 96, calcium was 8.7, magnesium was 2.1. Total bilirubin, AST, ALT, alkaline phosphatase were normal. Her CK was 147. Beta natriuretic peptic was 114, total protein was 7.6, albumin was 3.9. Her lipase was 147. Her urinalysis showed the urine was straw colored, clear with a pH of 7, specific gravity of less than 1.005. The urine was negative for protein, glucose, ketones, trace of blood, negative for nitrite and bilirubin, negative for leukocyte esterase, 1-2 rbc's and occasional wbc's, very few bacteria. Her urine test was negative. Her toxic screen was essentially negative. Her chest x-ray showed that the cardiomediastinal silhouette is within normal limits. There are no pleural effusions. There is no pulmonary vascular congestion. There is no pneumothorax. The lungs are clear. Cardiac monitoring device projects over the right chest. No significant osseous abnormalities identified SUMMARY: This is a 33-year-old female patient who came in with chest pain that started around 5:30 yesterday. Pain is mostly retrosternal, not radiating, with no associated nausea or vomiting, no diaphoresis. She is apparently known to have dextrocardia and has had a monitoring coordinator placed at the [facility] about 2 years ago. She was seen there in February of last year and apparently has never had any major event. Her EKG showed that she has short MD interval with MD interval of only 106 milliseconds. She has multiple ectopic beats that comes into bigeminy or trigeminy and I do not see any delta wave. I do not know whether she has [id number] syndrome or some form of preexcitation syndrome. PLAN: The patient was admitted to do 2 more sets of cardiac enzyme and to consult the cardiology team. Her D-dimer was only 0.1. I do not think she needs the therapeutic dose for any possible DVT or PE. I will cut that down to only prophylactic dose. LAMIN URIAS MD DR: JOSSE/eduard JOB#: [id number] / [id number]
[2018-12-01] MEDS: ASPIRIN 81 MG TAB.CHEW PO SCH ×3 (08:59→09:31)
[2018-12-01] MEDS: ENOXAPARIN 40 MG/0.4 ML SYRINGE. SQ SCH ×2 (09:00→09:02)
[2018-12-01 09:07] VITALS: BP 107/58
[2018-12-01 16:32] VITALS: BP 107/58
--- NOTE | 2018-12-01 16:47 | CARD ---
MR#: [id number] Date of Study: 12/01/2018 Ordering Physician: MORALES VASQUEZ, Referring Physician: LAMIN URIAS Tech: Shayla Ward RDCS APPROVED REPORT EXAM: Two-dimensional and M-mode echocardiogram with Doppler and color Doppler. Other Information Quality : Technically Limited Technically limited study due to Dextracardia INDICATION Chest Pain 2D DIMENSIONS RVDd1.8 (2.9-3.5cm)Left Atrium(2D)3.1 (1.6-4.0cm) IVSd1.0 (0.7-1.1cm)Aortic Root(2D)2.6 (2.0-3.7cm) LVDd5.5 (3.9-5.9cm)LVOT Diameter2.0 (1.8-2.4cm) PWd0.9 (0.7-1.1cm)LVDs3.9 (2.5-4.0cm) FS (%) 29.8 %SV83.2 ml LVEF(%)56.4 (>50%) Aortic Valve AoV Peak Js.137.3cm/sAoV VTI23.7cm AO Peak GR.7.5mmHgAO Mean GR.4mmHg ZACHARY (VTI)2.52cm2 Mitral Valve MV E Qrrdtdzf88.8cm/sMV DECEL [id number] MV A Broofswr28.5cm/sE/A Ratio1.8 Tricuspid Valve TR P. Kskgfhdn993am/sRAP [id number] TR Peak Gr.73mnJtYXHW86hcLk LEFT VENTRICLE The left ventricle is normal size. There is normal left ventricular wall thickness. The left ventricu lar systolic function is normal and the ejection fraction is within normal range. The Ejection Fracti on is 55-60%. Grossly normal wall motion. Difficult to visualize due to body habitus. The left ventri cular diastolic function and filling is normal for age. RIGHT VENTRICLE The right ventricle is normal size. The right ventricular systolic function is normal. ATRIA The left atrium size is normal. The right atrium size is normal. The interatrial septum is intact wit h no evidence for an atrial septal defect or patent foramen ovale as noted on 2-D or Doppler imaging. AORTIC VALVE The aortic valve is not well visualized but appears to be functioning normally by Doppler interrogati on. Doppler and Color Flow revealed no significant aortic regurgitation. There is no significant aort ic valvular stenosis. MITRAL VALVE The mitral valve is normal in structure and function. There is no evidence of mitral valve prolapse. There is no mitral valve stenosis. Doppler and Color Flow revealed no mitral valve regurgitation note d. TRICUSPID VALVE The tricuspid valve is normal in structure and function. Doppler and Color Flow revealed physiologica l tricuspid regurgitation. The PA pressure was estimated at 18 mmHg. There is no tricuspid valve sten osis. PULMONIC VALVE The pulmonic valve is not well visualized. Doppler and Color Flow revealed no pulmonic valvular regur gitation. There is no pulmonic valvular stenosis. GREAT VESSELS The aortic root is normal in size. The ascending aorta is normal in size. The IVC is normal in size a nd collapses >50% with inspiration. PERICARDIAL EFFUSION There is no evidence of significant pericardial effusion. Critical Notification Critical Value: No <Conclusion> The left ventricular systolic function is normal and the ejection fraction is within normal range. Th e Ejection Fraction is 55-60%. Grossly normal wall motion. Difficult to visualize due to body habitus. Signed by : Rajeev Villatoro, Electronically Approved : 12/01/2018 16:46:56
--- NOTE | 2018-12-01 17:11 | NUR ---
Discharge Note: LARRY STOVER Discharge instructions and discharge home medications reviewed with Patient and a copy given. All questions have been answered and understanding verbalized. The following instructions and handouts were given: chest pain Discontinued lines and drains: IV d/c, TIP IN TACT, PRESSURE DRESSING APPLIED. Patient discharged to home accompanied by spouse.
--- NOTE | 2018-12-01 17:18 | PDOC ---
PROVIDER NOTE PROVIDER NOTE PROVIDER NOTE S: No acute events overnight. O: Tele reviewed. Frequent PVC's. No sustained arrhythmias. Loop recorder interrogation from early november is unremarkable. On exam she has normal heart tones. No edema. Labs reviewed. Echo wnl. A: 1. Non-cardiac chest pain 2. Frequent PVC's - low arrhythmia burden overall Plan: 1. Discussed case with her primary EP at [facility]. They will f/u with her. Poor candidate for b-blockers due to depression and baseline bradycardia. Unable to tolerate ca channel blockers due to baseline normal BP. Ok to DC later today. Thanks. DILMA DON MD Dec 01, 2018 17:18
--- NOTE | 2018-12-02 02:36 | DS ---
DATE OF DISCHARGE: 12/01/2018 HOSPITAL COURSE: The patient is a 33-year-old female patient who was seen in the Emergency Room of [facility] with a complaint of chest pain that started about a day before while she was working at the [employer]. She rated her pain as about 7/10, associated with shortness of breath. Denied any nausea or vomiting. Denied any radiation. Denied any diaphoresis. The pain had been continuous. She said that she had pain like this before and only IV pain medication makes it better. She apparently has a microchip put by [facility] that belongs to [facility]. The last time she saw them was in February 2018. At that time, she was told that everything was fine. She was extensively evaluated in the Emergency Room and has had an EKG, which showed that she has sinus rhythm with multiple ventricular ectopic. She also seemed to have very short MS interval, has had 3 sets of cardiac enzymes that are negative. She was seen by the endless bed drum sander and has had an echocardiogram, which showed that her left ventricular systolic function was normal and ejection fraction within normal range. Ejection fraction was 55-60%, grossly normal wall motion, difficult to visualize due to body habitus. The endless bed drum sander recommended to follow up with her primary endless bed drum sander. PHYSICAL EXAMINATION: GENERAL: When I saw her this afternoon, she looked well and was clearly in no apparent respiratory distress, pale, but no jaundice, cyanosis or thyromegaly. No jugular venous distention. No limb edema. VITAL SIGNS: Her heart rate was 59, blood pressure was 107/58, temperature was 98.5, respiratory rate was 16 and oxygen saturation was 98%. HEAD, EYES, EARS, NOSE AND THROAT: Showed normocephalic, atraumatic. NECK: Supple. HEART: Showed normal first and second heart sounds. No gallop, rub or murmur. CHEST: Clear to auscultation. No crepitation or rhonchi. ABDOMEN: Distended, soft, nontender. NEUROLOGIC: She was awake, alert, responding appropriately. All cranial nerves intact. She moves extremities without difficulty. She ambulates without assistance or assistive devices. LABORATORY DATA: The patient had 3 sets of cardiac enzymes that ruled out myocardial infarction. Her serum triglyceride was 187, total cholesterol was 107, LDL was 129, VLDL was 37, HDL was 41, ratio was 5. Her TSH was 3.90. Her white cell count was 10,600, hemoglobin 11, hematocrit 34, MCV 88 and platelet count 273,000. Her chemistry showed serum sodium of 141, potassium 3.7, chloride 104, bicarbonate 27, anion gap of 10, BUN 10, creatinine 1, estimated GFR was 64 mL per minute. Her glucose was 59 and calcium was 8.4. Her prothrombin time was 10, INR of 1, aPTT was 25 and D-dimer was 0.21. DISCHARGE MEDICATIONS: The patient was discharged home to continue on her albuterol sulfate. FINAL DISCHARGE DIAGNOSES: Chest pain, myocardial infarction ruled out, palpitation. The patient has multiple ventricular ectopic beats, but no evidence of any sustained ventricular tachycardia or atrial fibrillation, dextrocardia and bronchial asthma. LAMIN URIAS MD DR: JOSSE/eduard JOB#: [id number] / [id number]
== END 2018-12-01 17:36 | disposition home or self-care (01) ==
LOC: ER 20:32 → ICU 11-30 00:10 → INTOOBSV 11-30 00:10
PROVIDERS: ADMIT Internal Medicine; ATTEND Internal Medicine
DX: R07.89 Other chest pain (principal); J45.909 Unspecified asthma, uncomplicated; I45.81 Long QT syndrome; F17.210 Nicotine dependence, cigarettes, uncomplicated; E78.5 Hyperlipidemia, unspecified; Z80.0 Family history of malignant neoplasm of digestive organs; Z82.0 Family history of epilepsy and other diseases of the nervous system; Z82.49 Family history of ischemic heart disease and other diseases of the circulatory system; Z82.5 Family history of asthma and other chronic lower respiratory diseases; Z90.49 Acquired absence of other specified parts of digestive tract; N80.9 Endometriosis, unspecified; R56.9 Unspecified convulsions; Q24.0 Dextrocardia; D72.829 Elevated white blood cell count, unspecified; I49.9 Cardiac arrhythmia, unspecified
CPT/HCPCS: 36415; 71046; 80048; 80061; 80076; 80307; 81001; 81025; 82550; 83690; 83735; 83880; 84443; 84484; 85025; 85379; 85610; 85730; 87641; 93005; 93306; 96372; 96374; 96375; 99284; 99406; G0378; J1650; J2270; J2405; J3490; J7120; 96361; G0379; 99285-25

== ENCOUNTER 2019-03-12 17:39 | Emergency (ER) | payer MEDICAID, OTHER ==
[~2019-03-12 17:39] MED LIST changes: +ALBU2.5V8 INH
--- NOTE | 2019-03-12 18:17 | RAD ---
Study: WRIST 3V LEFT Indication: Trauma. Fall. Comparison: None. Findings: No acute fracture or traumatic malalignment seen throughout the left wrist. No retained radiopaque foreign body seen within the regional soft tissues. No significant degenerative changes. Impression: No acute fracture seen throughout the left wrist. If there is concern for an occult scaphoid injury, consider follow-up radiographs in 7-14 days. Electronically signed by: SATNAM JOHN MD (03/12/2019 6:14 PM) [id number]
[2019-03-12 18:40] VITALS: BP 118/58
--- NOTE | 2019-03-12 18:46 | PHYS DOC ---
Past History Past Medical History: Asthma, Endometriosis, Seizure, Other Past Surgical History: Appendectomy, Cholecystectomy, , Tubal ligation, Other Smoking: Cigarettes Alcohol Use: None Drug Use: None Adult General Chief Complaint Chief Complaint: WRIST PAIN HPI HPI Patient is a 33-year-old female presented with wrist injury apparently she sort of fell down when she was trying to put her 2-year-old bed he bumped into her by accident Allergies Allergies Allergies Coded Allergies Type Severity Reaction Last Updated Verified ibuprofen Allergy Intermediate 10/02/17 Yes oxycodone Allergy Intermediate 10/02/17 Yes propoxyphene Allergy Intermediate 10/02/17 Yes Physical Exam Physical Exam Constitutional: Well developed, well nourished, no acute distress, non-toxic appearance. [] HENT: Normocephalic, atraumatic, bilateral external ears normal, oropharynx moist, no oral exudates, nose normal. [] Eyes: PERRLA, EOMI, conjunctiva normal, no discharge. [] Neck: Normal range of motion, no tenderness, supple, no stridor. [] Extremities: Tenderness volar aspect of the wrist no snuffbox tenderness radial pulses present patient reports decreased sensation to light touch of the site of the wrist injury no elbow tenderness Neurologic: Alert and oriented X 3, normal motor function, normal sensory function, no focal deficits noted. [] Psychologic: Affect normal, judgement normal, mood normal. [] EKG EKG [] Radiology/Procedures Radiology/Procedures [] Impressions: mparison: None. Findings: No acute fracture or traumatic malalignment seen throughout the left wrist. No retained radiopaque foreign body seen within the regional soft tissues. No significant degenerative changes. Impression: No acute fracture seen throughout the left wrist. If there is concern for an occult scaphoid injury, consider follow-up radiographs in 7-14 days. Electronically signed by: SATNAM JOHN MD (03/12/2019 6:14 PM) [facility] DICTATED AND SIGNED BY: SATNAM JOHN MD DATE: 03/12/191813 CC: KRISTOPHER TURPIN MD; HEYDI CANCHOLA MD ~ Course & Med Decision Making Course & Med Decision Making Pertinent Labs and Imaging studies reviewed. (See chart for details) []We T Velcro wrist splint the patient had no snuffbox tenderness I suspect wrist sprain return precautions discussed Trevin Disclaimer Dragmargarito Disclaimer This electronic medical record was generated, in whole or in part, using a voice recognition dictation system. Departure Departure: Impression: Primary Impression: Wrist sprain Disposition: 01 HOME, SELF-CARE Condition: STABLE Patient Instructions: Wrist Sprain with [facility] KRISTOPHER TURPIN MD Mar 12, 2019 18:46
== END 2019-03-12 18:44 | disposition home or self-care (01) ==
LOC: ER 17:39
DX: S63.502A Unspecified sprain of left wrist, initial encounter (principal); J45.909 Unspecified asthma, uncomplicated; F17.210 Nicotine dependence, cigarettes, uncomplicated; Z88.5 Allergy status to narcotic agent; Z88.6 Allergy status to analgesic agent; Z88.8 Allergy status to other drugs, medicaments and biological substances; W18.39XA Other fall on same level, initial encounter; Y93.89 Activity, other specified; Y92.89 Other specified places as the place of occurrence of the external cause; Y99.8 Other external cause status
CPT/HCPCS: 29125; 73110; 99284

== ENCOUNTER 2019-04-16 12:07 | Emergency (ER) | payer MEDICAID ==
[~2019-04-16] VITALS: Ht 157.5 cm; Wt 99.3 kg
[2019-04-16] MEDS ORDERED: IV NORMAL SALINE 1,000ML 1,000 ML IV SCH (12:19)
--- NOTE | 2019-04-16 12:43 | PHYS DOC ---
Past History Past Medical History: Asthma, Endometriosis, Seizure, Other Additional Past Medical Histor: dextra cardia Past Surgical History: Appendectomy, Cholecystectomy, , Tubal ligation Smoking: Cigarettes Additional Smoking Information: quit in November Alcohol Use: None Drug Use: None Adult General Chief Complaint Chief Complaint: CHEST PAIN HPI HPI 33-year-old female presents with chest pain. The patient was bowling when she began have central chest tightness with radiation into the right arm. She rates it a 7 out of 10. She has had "cardiac episodes" before. He denies any official diagnoses except for dextrocardia. She had a stress test a few months ago was reported to be negative. She's never had a heart attack or stents placed. She's been feeling normal otherwise. Denies shortness of breath, nausea, vomiting, abdominal pain. Review of Systems Review of Systems Constitutional: Denies fever or chills [] Eyes: Denies change in visual acuity, redness, or eye pain [] HENT: Denies nasal congestion or sore throat [] Respiratory: Denies cough or shortness of breath [] Cardiovascular: No additional information not addressed in HPI [] GI: Denies abdominal pain, nausea, vomiting, bloody stools or diarrhea [] : Denies dysuria or hematuria [] Musculoskeletal: Denies back pain or joint pain [] Integument: Denies rash or skin lesions [] Neurologic: Denies headache, focal weakness or sensory changes [] Endocrine: Denies polyuria or polydipsia [] All other systems were reviewed and found to be within normal limits, except as documented in this note. Current Medications Current Medications Current Medications Medications (Trade) Dose Ordered Sig/Hosea Start Time Stop Time Status Last Admin Dose Admin Aspirin (Children'S Aspirin) 324 mg 1X ONCE 04/16/19 12:45 04/16/19 12:46 UNV Nitroglycerin (Nitrostat) 0.4 mg PRN Q5MIN PRN 04/16/19 12:45 UNV Sodium Chloride 1,000 ml @ 1,000 mls/hr Q1H 04/16/19 12:19 04/16/19 13:18 Allergies Allergies Allergies Coded Allergies Type Severity Reaction Last Updated Verified ibuprofen Allergy Intermediate 04/16/19 Yes oxycodone Allergy Intermediate 04/16/19 Yes propoxyphene Allergy Intermediate 04/16/19 Yes Physical Exam Physical Exam Constitutional: Well developed, obese, well nourished, no acute distress, non- toxic appearance. [] HENT: Normocephalic, atraumatic, bilateral external ears normal, oropharynx moist, no oral exudates, nose normal. [] Eyes: PERRLA, EOMI, conjunctiva normal, no discharge. [] Neck: Normal range of motion, no tenderness, supple, no stridor. [] Cardiovascular:Heart rate regular rhythm, no murmur [] Lungs & Thorax: Bilateral breath sounds clear to auscultation [] Abdomen: Bowel sounds normal, soft, no tenderness, no masses, no pulsatile masses. [] Skin: Warm, dry, no erythema, no rash. [] Back: No tenderness, no CVA tenderness. [] Extremities: No tenderness, no cyanosis, no clubbing, ROM intact, no edema. [] Neurologic: Alert and oriented X 3, normal motor function, normal sensory function, no focal deficits noted. [] Psychologic: Affect normal, judgement normal, mood normal. [] Current Patient Data Vital Signs Vital Signs Date Time Temp Pulse Resp B/P (MAP) Pulse Ox O2 Delivery O2 Flow Rate FiO2 04/16/19 12:16 98.2 80 21 98 Room Air EKG EKG Sinus rhythm, rate 77, normal axis, frequent PVCs, no ST elevations or depressions.[] Radiology/Procedures Radiology/Procedures [] Course & Med Decision Making Course & Med Decision Making Pertinent Labs and Imaging studies reviewed. (See chart for details) The patient was given nitroglycerin sublingual for her chest pain. He did not make an immediate difference on her pain. Her EKG shows frequent PVCs, but no other significant abnormality. Her labs are unremarkable. Her troponin is negative. Her urinalysis is negative. She is not . After period of observation, the patient is feeling a bit better. I discussed with her admission for further testing and observation versus going home and she would prefer to go home. She has people at home with her in for condition worsens she will return to emergency room. Her heart is a 3 which by rolled she could go home. A recent negative stress test is also encouraging. I believe his reason for her to go home. She is stable for discharge at this time. [] Dragon Disclaimer Dragon Disclaimer This electronic medical record was generated, in whole or in part, using a voice recognition dictation system. The HEART Score for CP Pts HEART Score for Chest Pain: HEART Score for Chest Pain Response (Comments) Value History Moderately Suspicious 1 ECG Nonspecific Repolarizatio 1 Age < 45 0 Risk Factors 1 or 2 Risk Factors 1 Troponin < Normal Limit 0 Total 3 Risk Factors: Risk Factors: DM, Current or recent (<one month) smoker, HTN, HLP, family history of CAD, obesity. Risk Scores: Score 0 - 3: 2.5% MACE over next 6 weeks - Discharge Home Score 4 - 6: 20.3% MACE over next 6 weeks - Admit for Clinical Observation Score 7 - 10: 72.7% MACE over next 6 weeks - Early Invasive Strategies Departure Departure: Impression: Primary Impression: Chest pain Disposition: HOME, SELF-CARE Condition: STABLE Referrals: HEYDI CANCHOLA MD (PCP) Patient Instructions: Chest Pain (Nonspecific), Ywin-ni-[id number] Problem Qualifiers Primary Impression: Chest pain Chest pain type: precordial pain Qualified Codes: R07.2 - Precordial pain ARNALDO LAWTON DO Apr 16, 2019 12:43
[2019-04-16] MEDS ORDERED: ASPIRIN 81 MG TAB.CHEW PO ONE (12:45)
[2019-04-16] MEDS ORDERED: NITROGLYCERIN SUBLINGUAL 0.4 MG BOTTLE OF 25. SL PRN (12:45)
[2019-04-16 12:52] LABS: BASO % 0 % (0-3); EOS % 0 % (0-3); HEMATOCRIT 38.5 % (36.0-47.0); HEMOGLOBIN 12.4 g/dL (12.0-15.5); LYMPH # 2.6 x10^3/uL (1.0-4.8); LYMPH % 27 % (24-48); MEAN CORPUSCULAR HEMOGLOBIN 29 pg (25-35); MEAN CORPUSCULAR HGB CONC 32 g/dL (31-37); MEAN CORPUSCULAR VOLUME 89 fL (79-100); MONO # 0.7 x10^3/uL (0.0-1.1); MONO % 8 % (0-9); NEUT # 6.3 x10^3uL (1.8-7.7); NEUT % 65 % (31-73); PLATELET COUNT 298 x10^3/uL (140-400); RED BLOOD COUNT 4.34 x10^6/uL (3.50-5.40); RED CELL DISTRIBUTION WIDTH 14.2 % (11.5-14.5); WHITE BLOOD COUNT 9.8 x10^3/uL (4.0-11.0)
[2019-04-16 13:15] LABS: ALBUMIN 3.9 g/dL (3.4-5.0); ALBUMIN/GLOBULIN RATIO 1.1 (1.0-1.7); CALCIUM 8.2 mg/dL (8.5-10.1); CREATININE 1.1 mg/dL (0.6-1.0); GFR 56.9; POTASSIUM 3.8 mmol/L (3.5-5.1); TOTAL BILIRUBIN 0.2 mg/dL (0.2-1.0); TOTAL PROTEIN 7.4 g/dL (6.4-8.2)
[2019-04-16 13:27] LABS: AMPHETAMINE/METHAMPHETAMINE NEG (NEG); BARBITURATES NEG (NEG); BENZODIAZEPINES NEG (NEG); CANNABINOIDS NEG (NEG); COCAINE NEG (NEG); METHADONE NEG (NEG); OPIATES NEG (NEG); PHENCYCLIDINE NEG (NEG)
[2019-04-16 13:34] LABS: BACTERIA,URINE FEW /HPF (0-FEW); BILIRUBIN,URINE NEG (NEG); CLARITY,URINE CLEAR; COLOR,URINE STRAW; GLUCOSE,URINE NEG (NEG); NITRITE,URINE NEG (NEG); SQUAMOUS EPITHELIAL CELL,UR FEW /LPF; UROBILINOGEN,URINE 0.2 mg/dL (0.2 mg/dL); WBC,URINE OCC /HPF (0-4)
--- NOTE | 2019-04-16 13:38 | RAD ---
Single AP view of the chest. Comparison: 11/29/2018. Indication: Palpitations Findings: The heart is at the upper limits of normal with findings of dextrocardia.. There is no pneumothorax or effusion. No air space or interstitial disease. Impression: 1. No acute cardiopulmonary process. Electronically signed by: Marcin Cannon MD (04/16/2019 1:35 PM) [facility]
[2019-04-16 14:11] VITALS: BP 116/67
--- NOTE | 2019-04-18 19:40 | EKG ---
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
== END 2019-04-16 14:15 | disposition home or self-care (01) ==
LOC: ER 12:07
DX: R07.2 Precordial pain (principal); J45.909 Unspecified asthma, uncomplicated; F17.210 Nicotine dependence, cigarettes, uncomplicated; Z88.6 Allergy status to analgesic agent; Z88.5 Allergy status to narcotic agent; Z88.8 Allergy status to other drugs, medicaments and biological substances
CPT/HCPCS: 36415; 71045; 80053; 80307; 81001; 81025; 83880; 84484; 85025; 93005; 96360; 99285-25; J7030

== ENCOUNTER 2019-07-06 08:28 | Emergency (ER) | payer MEDICAID ==
[~2019-07-06] VITALS: Ht 157.5 cm; Wt 99.3 kg
[2019-07-06] MEDS ORDERED: IV NORMAL SALINE 1,000ML 1,000 ML IV ONE (09:00)
[2019-07-06] MEDS ORDERED: MORPHINE SULFATE 2 MG/ML DISP.SYRIN. IV ONE (09:00)
--- NOTE | 2019-07-06 09:03 | PHYS DOC ---
Past History Past Medical History: Asthma, Endometriosis, Seizure, Other Additional Past Medical Histor: dextra cardia Past Surgical History: Appendectomy, Cholecystectomy, , Tubal ligation Smoking: Cigarettes Alcohol Use: None Drug Use: None Adult General Chief Complaint Chief Complaint: ABDOMINAL PAIN HPI HPI 33-year-old female presents with right upper quadrant abdominal pain. The patient had laparoscopic abdominal surgery few days ago for endometriosis. They were treating multiple areas inside of her abdomen. She was doing well until this morning when she is having right upper quadrant abdominal pain. She describes it as a deep cramping. She took one of her [place] pain pills but it did not help. She denies nausea or vomiting. No drainage from her surgery sites. She had her gallbladder removed a few years ago. No history of kidney stones. She denies fever or chills. Review of Systems Review of Systems Constitutional: Denies fever or chills [] Eyes: Denies change in visual acuity, redness, or eye pain [] HENT: Denies nasal congestion or sore throat [] Respiratory: Denies cough or shortness of breath [] Cardiovascular: No additional information not addressed in HPI [] GI: RUQ abdominal pain. Denies nausea, vomiting, bloody stools or diarrhea [] : Denies dysuria or hematuria [] Musculoskeletal: Denies back pain or joint pain [] Integument: Denies rash or skin lesions [] Neurologic: Denies headache, focal weakness or sensory changes [] Endocrine: Denies polyuria or polydipsia [] All other systems were reviewed and found to be within normal limits, except as documented in this note. Current Medications Current Medications Current Medications Medications (Trade) Dose Ordered Sig/Hosea Start Time Stop Time Status Last Admin Dose Admin Morphine Sulfate (Morphine 2mg Syringe) 2 mg 1X ONCE 07/06/19 09:00 07/06/19 09:01 Ondansetron HCl (Zofran) 4 mg 1X ONCE 07/06/19 09:15 07/06/19 09:16 Sodium Chloride 1,000 ml @ 1,000 mls/hr 1X ONCE 07/06/19 09:00 07/06/19 09:59 Allergies Allergies Allergies Coded Allergies Type Severity Reaction Last Updated Verified ibuprofen Allergy Intermediate 07/06/19 Yes oxycodone Allergy Intermediate 07/06/19 Yes propoxyphene Allergy Intermediate 07/06/19 Yes Physical Exam Physical Exam Constitutional: Well developed, morbidly obese, well nourished, no acute distress, non-toxic appearance. [] HENT: Normocephalic, atraumatic, bilateral external ears normal, oropharynx moist, no oral exudates, nose normal. [] Eyes: PERRLA, EOMI, conjunctiva normal, no discharge. [] Neck: Normal range of motion, no tenderness, supple, no stridor. [] Cardiovascular:Heart rate regular rhythm, no murmur [] Lungs & Thorax: Bilateral breath sounds clear to auscultation [] Abdomen: Bowel sounds normal, soft, moderate right upper quadrant tenderness, no masses, no pulsatile masses. [] Skin: Warm, dry, no erythema, no rash. Surgical sites clean and dry and intact [] Back: No tenderness, no CVA tenderness. [] Extremities: No tenderness, no cyanosis, no clubbing, ROM intact, no edema. [] Neurologic: Alert and oriented X 3, normal motor function, normal sensory function, no focal deficits noted. [] Psychologic: Affect normal, judgement normal, mood normal. [] Current Patient Data Vital Signs Vital Signs Date Time Temp Pulse Resp B/P (MAP) Pulse Ox O2 Delivery O2 Flow Rate FiO2 07/06/19 08:42 98.5 81 18 143/79 (100) 98 Room Air EKG EKG [] Radiology/Procedures Radiology/Procedures [] Impressions: Study: CT abdomen/pelvis with intravenous contrast Indication: Recent surgery. Abdominal pain. Comparison: None. Technique: Helical CT imaging performed of the abdomen and pelvis after the intravenous administration of 75 cc Omnipaque 300 contrast. Sagittal and coronal reformats were obtained. One or more of the following individualized dose reduction techniques were utilized for this examination: 1. Automated exposure control 2. Adjustment of the mA and/or kV according to patient size 3. Use of iterative reconstruction technique. Findings: Unremarkable visualized heart and lungs. Implantable loop recorder noted. Hepatic steatosis. Status post cholecystectomy. Unremarkable pancreas, spleen and adrenal glands. Unremarkable kidneys and collecting system. The uterus is within normal limits. Unremarkable adnexa. Unremarkable colon. The appendix is absent. Nonobstructed small bowel. Unremarkable stomach. No free fluid or air. Facet degeneration on the left at L5-S1. Impression: 1. No acute abnormality seen throughout the abdomen or pelvis. The gallbladder and appendix are absent without abnormality seen in these regions. 2. Hepatic steatosis. Electronically signed by: SATNAM JOHN MD (07/06/2019 10:08 AM) [id number] DICTATED AND SIGNED BY: SATNAM JOHN MD DATE: 07/06/19 1008 CC: ARNALDO LAWTON DO; HEYDI CANCHOLA MD ~ Course & Med Decision Making Course & Med Decision Making Pertinent Labs and Imaging studies reviewed. (See chart for details) The patient's labs are unremarkable. Her urinalysis shows small leukocyte esterase, 20-40 white cells, a few bacteria. I will go ahead and treat her with 5 days of Macrobid. I'm not sure this is related to her pain. Her CT scan is negative for acute findings. It is possible this is post surgical pain that is referred to this area. She may have just gotten behind with her pain medication. Gave her morphine in the ED. She is stable for discharge at this time. [] Dragon Disclaimer Dragon Disclaimer This electronic medical record was generated, in whole or in part, using a voice recognition dictation system. Departure Departure: Impression: Primary Impression: UTI (urinary tract infection) Additional Impression: RUQ abdominal pain Disposition: HOME, SELF-CARE Condition: STABLE Referrals: HEYDI CANCHOLA MD (PCP) Patient Instructions: Abdominal Pain, Yony-rh-Xbuk, Urinary Tract Infection, Qfqy-ye-Pifh Scripts Nitrofurantoin Monohyd/M-Cryst (MACROBID 100 MG CAPSULE) 100 Mg Capsule 1 CAP PO BID for UTI for 5 Days, #10 CAP 0 Refills Prov: ARNALDO LAWTON DO 07/06/19 Problem Qualifiers Primary Impression: UTI (urinary tract infection) Urinary tract infection type: acute cystitis Hematuria presence: with hematuria Qualified Codes: N30.01 - Acute cystitis with hematuria ARNALDO LAWTON DO Jul 06, 2019 09:03
[2019-07-06] MEDS ORDERED: ONDANSETRON PF 4 MG/2 ML VIAL. IVP ONE (09:15)
[2019-07-06] MEDS ORDERED: IOHEXOL 300 MG/ML 75 ML VIAL. IV ONE (09:15)
[2019-07-06] MEDS ORDERED: CONTRAST GIVEN MC PRN (09:15)
[2019-07-06 09:16] LABS: BASO # 0.1 x10^3/uL (0.0-0.2); BASO % 1 % (0-3); EOS # 0.1 x10^3/uL (0.0-0.7); EOS % 2 % (0-3); HEMATOCRIT 38.7 % (36.0-47.0); HEMOGLOBIN 12.6 g/dL (12.0-15.5); LYMPH % 21 % (24-48); MEAN CORPUSCULAR HEMOGLOBIN 28 pg (25-35); MEAN CORPUSCULAR HGB CONC 33 g/dL (31-37); MEAN CORPUSCULAR VOLUME 87 fL (79-100); MONO # 0.6 x10^3/uL (0.0-1.1); MONO % 7 % (0-9); NEUT # 6.7 x10^3uL (1.8-7.7); NEUT % 70 % (31-73); PLATELET COUNT 348 x10^3/uL (140-400); RED BLOOD COUNT 4.45 x10^6/uL (3.50-5.40); RED CELL DISTRIBUTION WIDTH 15.3 % (11.5-14.5); WHITE BLOOD COUNT 9.5 x10^3/uL (4.0-11.0)
[2019-07-06 09:24] LABS: CALCIUM 8.1 mg/dL (8.5-10.1); CREATININE 0.9 mg/dL (0.6-1.0); GFR 71.7; POTASSIUM 3.6 mmol/L (3.5-5.1)
[2019-07-06 09:26] LABS: BACTERIA,URINE FEW /HPF (0-FEW); BILIRUBIN,URINE NEG (NEG); CLARITY,URINE HAZY; COLOR,URINE STRAW; GLUCOSE,URINE NEG (NEG); NITRITE,URINE NEG (NEG); SQUAMOUS EPITHELIAL CELL,UR FEW /LPF; UROBILINOGEN,URINE 0.2 mg/dL (0.2 mg/dL); WBC,URINE 20-40 /HPF (0-4)
[2019-07-06 09:29] LABS: ALBUMIN 3.8 g/dL (3.4-5.0); ALBUMIN/GLOBULIN RATIO 0.9 (1.0-1.7); TOTAL BILIRUBIN 0.2 mg/dL (0.2-1.0); TOTAL PROTEIN 7.9 g/dL (6.4-8.2)
--- NOTE | 2019-07-06 10:11 | RAD ---
Study: CT abdomen/pelvis with intravenous contrast Indication: Recent surgery. Abdominal pain. Comparison: None. Technique: Helical CT imaging performed of the abdomen and pelvis after the intravenous administration of 75 cc Omnipaque 300 contrast. Sagittal and coronal reformats were obtained. One or more of the following individualized dose reduction techniques were utilized for this examination: 1. Automated exposure control 2. Adjustment of the mA and/or kV according to patient size 3. Use of iterative reconstruction technique. Findings: Unremarkable visualized heart and lungs. Implantable loop recorder noted. Hepatic steatosis. Status post cholecystectomy. Unremarkable pancreas, spleen and adrenal glands. Unremarkable kidneys and collecting system. The uterus is within normal limits. Unremarkable adnexa. Unremarkable colon. The appendix is absent. Nonobstructed small bowel. Unremarkable stomach. No free fluid or air. Facet degeneration on the left at L5-S1. Impression: 1. No acute abnormality seen throughout the abdomen or pelvis. The gallbladder and appendix are absent without abnormality seen in these regions. 2. Hepatic steatosis. Electronically signed by: SATNAM JOHN MD (07/06/2019 10:08 AM) [id number]
[2019-07-06] MEDS ORDERED: NITR100C62 PO (10:25)
[2019-07-06 10:35] VITALS: BP 122/72
== END 2019-07-06 10:38 | disposition home or self-care (01) ==
LOC: ER 08:28
DX: N30.01 Acute cystitis with hematuria (principal); J45.909 Unspecified asthma, uncomplicated; F17.210 Nicotine dependence, cigarettes, uncomplicated; K76.0 Fatty (change of) liver, not elsewhere classified; Z90.89 Acquired absence of other organs; Z90.49 Acquired absence of other specified parts of digestive tract; Z98.51 Tubal ligation status; Z88.5 Allergy status to narcotic agent; Z88.8 Allergy status to other drugs, medicaments and biological substances
CPT/HCPCS: 36415; 74177; 80053; 81001; 81025; 83690; 85025; 87086; 96374; 96375; 99285; J2270; J2405; Q9967; 96361; J7030

== ENCOUNTER → 2019-07-31 | Outpatient (CLI) | payer MEDICAID ==
[2019-07-06 10:35] VITALS: BP 122/72
[~2019-07-31] MED LIST changes: +NITR100C62 PO
--- NOTE | 2019-07-31 12:30 | RAD ---
CHEST PA LATERAL History: Cough Comparison: None. Findings: PA and lateral views of chest were obtained. A loop recorder device is seen at the right subdiaphragmatic level. Surgical clips are present. The cardiomediastinal silhouette is normal. Pulmonary vasculature is normal. The lungs are clear. No pleural effusion or pneumothorax is seen. There is no acute bone abnormality. IMPRESSION: No acute cardiopulmonary process. Electronically signed by: Galileo Rose MD (07/31/2019 12:27 PM) [facility]
--- NOTE | 2019-07-31 12:45 | RAD ---
Examination: CT ABDOMEN PELVIS WO CONTRAST History: Hematuria, right flank pain Comparison/Correlation: 07/06/2019 CT Abd and Pelvis with contrast Findings: Axial images of the abdomen and pelvis were obtained without contrast. Sagittal and coronal reformatted images were provided. A loop recorder device is visualized at the right lower thoracic subcutaneous fat anteriorly. Liver, spleen, pancreas, and adrenal glands are normal. Cholecystectomy noted. No radiopaque collecting system calculi. Renal contours are normal. No hydronephrosis. No hydroureter. Urinary bladder is nearly completely decompressed. Surgical clips are present anterior to the right psoas muscle and iliac crest level. Surgical clip about the cecum is noted. Appendix is not identified. No bowel obstruction or extraluminal gas. At the supraumbilical level, there is a ventral hernia defect just to the right of midline measuring 1.7 cm transverse on axial image 66 of series 2. It measures 0.75 cm longitudinal. Fibroid involvement of the uterus is present. Left adnexal follicle measuring 2.2 cm diameter is present. No enlarged abdominal or pelvic lymph nodes. No ascites or pelvic free fluid. Bony structures are unremarkable. Impression: No radiopaque collecting system calculi or collecting system obstruction. Consider further evaluation with arterial phase of the kidneys and delayed postcontrast excretory phase CT imaging of the abdomen and pelvis if clinical concern persists. Left adnexal follicle is present but histologic and benign in appearance. No further follow-up needed. Supraumbilical small ventral hernia defect containing omental fat. Fibroid uterus. PQRS Compliance Statement: One or more of the following individualized dose reduction techniques were utilized for this examination: 1. Automated exposure control 2. Adjustment of the mA and/or kV according to patient size 3. Use of iterative reconstruction technique Electronically signed by: Galileo Rose MD (07/31/2019 12:42 PM) [facility]
== END | disposition home or self-care (01) ==
LOC: PMG 10:24
PROVIDERS: ATTEND Family Medicine
DX: K43.9 Ventral hernia without obstruction or gangrene (principal); D25.9 Leiomyoma of uterus, unspecified; R05 Cough; R31.9 Hematuria, unspecified; Z90.49 Acquired absence of other specified parts of digestive tract; Z87.442 Personal history of urinary calculi
CPT/HCPCS: 71046; 74176

== ENCOUNTER → 2019-09-11 | Outpatient (CLI) | payer MEDICAID ==
--- NOTE | 2019-09-11 12:04 | RAD ---
PROCEDURE: ANKLE RIGHT 3V STUDY DATE: 09/11/2019 CLINICAL INDICATION / HISTORY: Right ankle pain. TECHNIQUE: Right ankle 3 views. COMPARISON: None FINDINGS: The ankle mortise is approximated, and the talar dome is unremarkable. The joint space widths are maintained. No fracture or dislocation is identified. No soft tissue swelling is appreciated. IMPRESSION: No acute osseous abnormality. Electronically signed by: Cori Stewart MD (09/11/2019 12:01 PM) [id number]
== END ==
LOC: PMG 11:12
PROVIDERS: ATTEND Family Medicine
DX: M25.571 Pain in right ankle and joints of right foot (principal)
CPT/HCPCS: 73610

== ENCOUNTER 2019-11-10 23:02 | Emergency (ER) | payer MEDICAID ==
[~2019-11-10] VITALS: Ht 154.9 cm; Wt 105.0 kg
[2019-11-10] MEDS ORDERED: IV NORMAL SALINE 1,000ML 1,000 ML IV ONE (23:30)
[2019-11-10] MEDS ORDERED: IOHEXOL 300 MG/ML 75 ML VIAL. IV ONE (23:45)
[2019-11-10] MEDS ORDERED: CONTRAST GIVEN MC PRN (23:45)
[2019-11-10] MEDS ORDERED: ONDANSETRON PF 4 MG/2 ML VIAL. IVP ONE (23:45)
[2019-11-10] MEDS ORDERED: MORPHINE SULFATE 4 MG/ML DISP.SYRIN. IV ONE (23:45)
[2019-11-10 23:58] LABS: BACTERIA,URINE FEW /HPF (0-FEW); BILIRUBIN,URINE NEG (NEG); CLARITY,URINE HAZY; COLOR,URINE YELLOW; GLUCOSE,URINE NEG (NEG); NITRITE,URINE NEG (NEG); RBC,URINE OCC /HPF (0-2); SQUAMOUS EPITHELIAL CELL,UR MOD /LPF; UROBILINOGEN,URINE 0.2 mg/dL (0.2 mg/dL)
--- NOTE | 2019-11-11 00:08 | PHYS DOC ---
Past History Past Medical History: Asthma, Endometriosis, Seizure, Other Additional Past Medical Histor: dextra cardia Past Surgical History: Appendectomy, Cholecystectomy, , Tubal ligation Smoking: Cigarettes Alcohol Use: None Drug Use: None General Adult EDM: Chief Complaint: ABDOMINAL PAIN HPI: HPI: Patient is a 34-year-old female presenting to the ED with a chief complaint of lower abdominal tenderness. Patient states that they have been going on for the last few days. Patient does state that she is not able to have a good bowel movement secondary to her endometriosis. Patient states that she has been taking MiraLAX in the past with no resolving of symptoms. Patient denies dysuria, fever, chills, nausea or vomiting. Review of Systems: Review of Systems: Constitutional: Denies fever or chills Eyes: Denies change in visual acuity HENT: Denies nasal congestion or sore throat Respiratory: Denies cough or shortness of breath Cardiovascular: Denies chest pain or edema GI: Complains of lower abdominal tenderness : Denies dysuria Musculoskeletal: Denies back pain or joint pain Integument: Denies rash Neurologic: Denies headache, focal weakness or sensory changes Heart Score: Risk Factors: Risk Factors: DM, Current or recent (<one month) smoker, HTN, HLP, family history of CAD, obesity. Risk Scores: Score 0 - 3: 2.5% MACE over next 6 weeks - Discharge Home Score 4 - 6: 20.3% MACE over next 6 weeks - Admit for Clinical Observation Score 7 - 10: 72.7% MACE over next 6 weeks - Early Invasive Strategies Current Medications: Current Meds: Current Medications Medications (Trade) Dose Ordered Sig/[facility] Start Time Stop Time Status Last Admin Dose Admin Info (Do NOT chart on this entry -- for MONITORING) 1 each PRN DAILY PRN 11/10/19 23:45 11/12/19 23:44 Iohexol (Omnipaque 300 Mg/ml) 75 ml 1X ONCE 11/10/19 23:45 11/10/19 23:46 DC Morphine Sulfate (Morphine 4mg Syringe) 4 mg 1X ONCE 11/10/19 23:45 11/10/19 23:46 DC Ondansetron HCl (Zofran) 4 mg 1X ONCE 11/10/19 23:45 11/10/19 23:46 DC Sodium Chloride 1,000 ml @ 1,000 mls/hr 1X ONCE 11/10/19 23:30 11/11/19 00:29 Allergies: Allergies: Allergies Coded Allergies Type Severity Reaction Last Updated Verified ibuprofen Allergy Intermediate 07/06/19 Yes oxycodone Allergy Intermediate 07/06/19 Yes propoxyphene Allergy Intermediate 07/06/19 Yes Physical Exam: PE: Constitutional: Well developed, well nourished, no acute distress, non-toxic appearance. [] HENT: Normocephalic, atraumatic Eyes: EOMI Neck: Normal range of motion, Supple Cardiovascular:Heart rate regular rhythm Lungs & Thorax: Bilateral breath sounds clear to auscultation [] Abdomen: Moderate lower abdominal tenderness Extremities: No tenderness, ROM intact Neurologic: Alert and oriented X 3 Current Patient Data: Labs: Laboratory Tests Test 11/10/19 23:26 Urine Collection Type Unknown Urine Color Yellow Urine Clarity Hazy Urine pH 8.5 Urine Specific Chromo 1.020 Urine Protein Neg (NEG-TRACE) Urine Glucose (UA) Neg mg/dL (NEG) Urine Ketones (Stick) Neg mg/dL (NEG) Urine Blood Large (NEG) Urine Nitrite Neg (NEG) Urine Bilirubin Neg (NEG) Urine Urobilinogen Dipstick 0.2 mg/dL (0.2 mg/dL) Urine Leukocyte Esterase Small (NEG) Urine RBC Occ /HPF (0-2) Urine WBC 1-4 /HPF (0-4) Urine Squamous Epithelial Cells Mod /LPF Urine Bacteria Few /HPF (0-FEW) EKG: EKG: [] Radiology/Procedures: Radiology/Procedures: [] Course & Med Decision Making: Course & Med Decision Making Pertinent Labs and Imaging studies reviewed. (See chart for details) Ordered labs, UA, urine , CT abdomen pelvis with IV contrast, IV morphine, IV Zofran Dragon Disclaimer: Dragon Disclaimer: This electronic medical record was generated, in whole or in part, using a voice recognition dictation system. Departure Departure: Impression: Primary Impression: Constipation Additional Impression: Abdominal pain Disposition: 01 HOME/RESIDENCE PRIOR TO ADM Condition: STABLE Referrals: HEYDI CANCHOLA MD (PCP) Patient Instructions: Abdominal Pain (Nonspecific), Constipation, Adult Additional Instructions: Please return to the ED if symptoms worsen or if any concerns. Please follow-up with PCP in 1 to 2 days. NIDHI MATHEW 3, 2020 00:08
[2019-11-11 00:10] LABS: U PREG PATIENT NEGATIVE (NEG)
[2019-11-11 00:37] LABS: BASO # 0.1 x10^3/uL (0.0-0.2); BASO % 1 % (0-3); EOS # 0.1 x10^3/uL (0.0-0.7); EOS % 1 % (0-3); HEMATOCRIT 37.2 % (36.0-47.0); HEMOGLOBIN 11.8 g/dL (12.0-15.5); LYMPH # 3.1 x10^3/uL (1.0-4.8); LYMPH % 28 % (24-48); MEAN CORPUSCULAR HEMOGLOBIN 27 pg (25-35); MEAN CORPUSCULAR HGB CONC 32 g/dL (31-37); MEAN CORPUSCULAR VOLUME 86 fL (79-100); MONO # 0.7 x10^3/uL (0.0-1.1); MONO % 7 % (0-9); NEUT # 7.3 x10^3uL (1.8-7.7); NEUT % 64 % (31-73); PLATELET COUNT 353 x10^3/uL (140-400); RED BLOOD COUNT 4.31 x10^6/uL (3.50-5.40); RED CELL DISTRIBUTION WIDTH 14.7 % (11.5-14.5); WHITE BLOOD COUNT 11.3 x10^3/uL (4.0-11.0)
[2019-11-11 00:43] LABS: CALCIUM 8.6 mg/dL (8.5-10.1); GFR 63.1; POTASSIUM 3.7 mmol/L (3.5-5.1)
[2019-11-11 00:49] LABS: ALBUMIN 3.7 g/dL (3.4-5.0); TOTAL BILIRUBIN 0.2 mg/dL (0.2-1.0); TOTAL PROTEIN 7.5 g/dL (6.4-8.2)
[2019-11-11 00:50] VITALS: BP 132/85
--- NOTE | 2019-11-11 01:03 | RAD ---
EXAM: CT Abdomen and Pelvis with IV contrast CLINICAL HISTORY: Lower abdominal Pain COMPARISON: none TECHNIQUE: Helical CT of the abdomen and pelvis was performed following the administration of IV contrast. Axial, coronal and sagittal reformatted images were generated. ---PQRS compliance statement - One or more of the following individualized dose reduction techniques were utilized for this study: 1. Automated exposure control 2. Adjustment of the mA and/or kV according to patient size 3. Use of iterative reconstruction technique--- FINDINGS: Lower chest: Linear opacities in the lingula likely scarring/atelectasis. Abdomen and pelvis: Liver and biliary system: No focal liver lesion. Cholecystectomy clips are seen. No biliary ductal dilatation. Spleen: Unremarkable Pancreas: Unremarkable Adrenal glands: Unremarkable Kidneys: Symmetric nephrograms. No focal renal lesion. No hydronephrosis. No hydroureter. Lymph nodes/retroperitoneum: No abdominal pelvic lymphadenopathy. Vessels: Aorta is normal in caliber. Bowel/Peritoneal cavity: Moderate colonic stool content is seen. No small or large bowel dilatation. There has been an appendectomy. No abdominal pelvic ascites. IUD is seen within the uterus. Right adnexal cystic structure likely follicle. Abdominal wall: Trace fat-containing periumbilical and suprapubic periumbilical hernias are seen. Bladder: Bladder is decompressed but mildly thickened, likely cystitis. Bones: No aggressive osseous lesion is seen. IMPRESSION: 1. No bowel obstruction. 2. Small supraumbilical fat-containing hernia is seen. 3. IUD seen within the uterus. Electronically signed by: Darin Day MD (11/11/2019 1:00 AM) DONAL
== END 2019-11-11 01:20 | disposition home or self-care (01) ==
LOC: ER 23:02
DX: K59.00 Constipation, unspecified (principal); J45.909 Unspecified asthma, uncomplicated; F17.210 Nicotine dependence, cigarettes, uncomplicated; Z90.49 Acquired absence of other specified parts of digestive tract; Z90.89 Acquired absence of other organs; Z98.890 Other specified postprocedural states; Z98.51 Tubal ligation status
CPT/HCPCS: 36415; 74177; 80053; 81001; 81025; 83690; 85025; 87086; 96374; 96375; 99285; J2270; J2405; Q9967; J7030

== ENCOUNTER → 2019-11-23 | Outpatient (CLI) | payer MEDICAID ==
[2019-11-11 00:50] VITALS: BP 132/85
--- NOTE | 2019-11-23 14:40 | RAD ---
DATE: 11/23/2019 12:50 PM EXAM: DIGITAL DIAGNOSTIC BILATERAL HISTORY: 34-year-old woman with upper outer right breast pain following intrauterine device placement. No palpable area of concern. COMPARISON: None. This is a baseline. TECHNIQUE: Bilateral CC and MLO views of the breasts were performed. Bilateral breast tomosynthesis was performed in CC and MLO projections. A cleavage view was also obtained.. This study was interpreted with the benefit of Computerized Aided Detection (CAD). FINDINGS: Breast Density: FATTY The Breast Parenchyma is primarily fatty replaced. Breast parenchyma level density A. No suspicious masses, microcalcifications or architectural distortion is present to suggest malignancy in either breast. The visualized axillae are unremarkable. IMPRESSION: No mammographic evidence of malignancy. BI-RADS CATEGORY: 1 NEGATIVE RECOMMENDED FOLLOW-UP: 12M 12 MONTH FOLLOW-UP Annual screening mammography is recommended, unless clinically indicated sooner based on symptoms or change in physical exam. Clinical management also recommended, which may include biopsy if there are any clinically suspicious findings. PQRS compliance statement: Patient information was entered into a reminder system with a target due date for the next mammogram. Mammography is a sensitive method for finding small breast cancers, but it does not detect them all and is not a substitute for careful clinical examination. A negative mammogram does not negate a clinically suspicious finding and should not result in delay in biopsying a clinically suspicious abnormality. "Our facility is accredited by the [employer] Mammography Program."
== END ==
LOC: MAMMO 12:14
PROVIDERS: ATTEND Obstetrics & Gynecology
DX: R92.2 Inconclusive mammogram (principal)
CPT/HCPCS: 77066

== ENCOUNTER 2019-11-26 19:05 | Emergency (ER) | payer MEDICAID ==
[~2019-11-26] VITALS: Ht 154.9 cm; Wt 105.0 kg
--- NOTE | 2019-11-26 19:06 | PHYS DOC ---
Past History Past Medical History: Asthma, Endometriosis, Seizure, Other Additional Past Medical Histor: dextra cardia Past Surgical History: Appendectomy, Cholecystectomy, , Tubal ligation Additional Past Surgical Histo: mirena placed 3 wks ago Smoking: Cigarettes Alcohol Use: None Drug Use: None General Adult HPI: HPI: " Jonathan... My 2-year-old slammed the door on my hand... These fingers got smashed..." Patient is a 34 year old femle who presents with above hx and complaints crush injury to right hand patient localizes pain to the fingers 3 and 4. Distal neurovascular is equal to left hand. No history of travel or specific ill contacts. No history immunosuppression. Follows with Dr. Enriquez Review of Systems: Review of Systems: Constitutional: Denies fever or chills Eyes: Denies change in visual acuity HENT: Denies nasal congestion or sore throat Respiratory: Denies cough or shortness of breath Cardiovascular: Denies chest pain or edema GI: Denies abdominal pain, nausea, vomiting, bloody stools or diarrhea : Denies dysuria Musculoskeletal: Complaints of Rt. hand pain Integument: Denies rash Neurologic: Denies headache, focal weakness or sensory changes Endocrine: Denies polyuria or polydipsia Lymphatic: Denies swollen glands Psychiatric: Denies depression or anxiety Heart Score: Risk Factors: Risk Factors: DM, Current or recent (<one month) smoker, HTN, HLP, family history of CAD, obesity. Risk Scores: Score 0 - 3: 2.5% MACE over next 6 weeks - Discharge Home Score 4 - 6: 20.3% MACE over next 6 weeks - Admit for Clinical Observation Score 7 - 10: 72.7% MACE over next 6 weeks - Early Invasive Strategies Family History: Family History: Noncontributory Current Medications: Current Meds: See nursing for home meds Allergies: Allergies: Allergies Coded Allergies Type Severity Reaction Last Updated Verified ibuprofen Allergy Intermediate 07/06/19 Yes oxycodone Allergy Intermediate 07/06/19 Yes propoxyphene Allergy Intermediate 07/06/19 Yes Physical Exam: PE: Constitutional:mild distress, non-toxic appearance. [] HENT: Normocephalic, atraumatic, bilateral external ears normal, oropharynx moist, no oral exudates, nose normal. [] Eyes: PERRLA, EOMI, conjunctiva normal, no discharge. [] Neck: Normal range of motion, no tenderness, supple, no stridor. [] Cardiovascular:Heart rate regular rhythm, no murmur [] Lungs & Thorax: Bilateral breath sounds clear to auscultation [] Abdomen: Bowel sounds normal, soft, no tenderness, no masses, no pulsatile masses. [] Skin: Warm, dry, no erythema, no rash. [] Back: No tenderness, no CVA tenderness. [] Extremities: No tenderness, no cyanosis, no clubbing, ROM intact, no edema. [] Except findings in right hand. Neurologic: Alert and oriented X 3, normal motor function, normal sensory function, no focal deficits noted. [] Psychologic: Affect tearful,, judgement normal, mood normal. [] EKG: EKG: [] Radiology/Procedures: Radiology/Procedures: [address] [address] IMAGING REPORT Signed PATIENT: LARRY STOVER ACCOUNT: [id number] : 1985 LOCATION: ER AGE: 34 SEX: F EXAM STATUS: PRE ER ORD. PHYSICIAN: JANUSZ TARIQ MD REASON: smashed 4th and 5th fingers in door PROCEDURE: HAND RIGHT 3V EXAM: Right hand, 3 views. HISTORY: Blunt trauma. COMPARISON: None. FINDINGS: 3 views of the right hand are obtained. There is no acute fracture, dislocation or subluxation. No radiodense foreign body is seen. IMPRESSION: No acute osseous finding. Electronically signed by: Elizabeth Prieto MD (11/26/2019 7:21 PM) [facility] DICTATED AND SIGNED BY: ELIZABETH PRIETO MD DATE: 11/26/191920 CC: JANUSZ TARIQ MD; HEYDI ENRIQUEZ MD ~ [][address] [address] IMAGING REPORT Signed PATIENT: LARRY STOVER ACCOUNT: [id number] : 1985 LOCATION: ER AGE: 34 SEX: F EXAM STATUS: PRE ER ORD. PHYSICIAN: JANUSZ TARIQ MD REASON: smashed 4th and 5th fingers in door PROCEDURE: HAND RIGHT 3V EXAM: Right hand, 3 views. HISTORY: Blunt trauma. COMPARISON: None. FINDINGS: 3 views of the right hand are obtained. There is no acute fracture, dislocation or subluxation. No radiodense foreign body is seen. IMPRESSION: No acute osseous finding. Electronically signed by: Elizabeth Prieto MD (11/26/2019 7:21 PM) [facility] DICTATED AND SIGNED BY: ELIZABETH PRIETO MD DATE: 11/26/191920 CC: JANUSZ TARIQ MD; HEYDI ENRIQUEZ MD ~ Course & Med Decision Making: Course & Med Decision Making Pertinent Labs and Imaging studies reviewed. (See chart for details) Ice packs as needed. Keep hand elevated. Follow-up with primary care. Jonny splint. Consider re-x-ray in 2 weeks if yeast distiller. Impression: 1. Crush injury [] Dragon Disclaimer: Dragon Disclaimer: This electronic medical record was generated, in whole or in part, using a voice recognition dictation system. Departure Departure: Disposition: 01 HOME/RESIDENCE PRIOR TO ADM Condition: STABLE Referrals: HEYDI ENRIQUEZ MD (PCP) Justification of Admission: Justification of Admission: Justification of Admission Dx: N/A Dragon Disclaimer This chart was dictated in whole or in part using Voice Recognition software in a busy, high-work load, and often noisy Emergency Department environment. It may contain unintended and wholly unrecognized errors or omissions. JANUSZ TARIQ MD Nov 26, 2019 19:06
[2019-11-26 19:10] VITALS: BP 124/63
--- NOTE | 2019-11-26 19:24 | RAD ---
EXAM: Right hand, 3 views. HISTORY: Blunt trauma. COMPARISON: None. FINDINGS: 3 views of the right hand are obtained. There is no acute fracture, dislocation or subluxation. No radiodense foreign body is seen. IMPRESSION: No acute osseous finding. Electronically signed by: Elizabeth Conte MD (11/26/2019 7:21 PM) [facility]
== END 2019-11-26 19:45 | disposition home or self-care (01) ==
LOC: ER 19:05
DX: S67.21XA Crushing injury of right hand, initial encounter (principal); J45.909 Unspecified asthma, uncomplicated; F17.210 Nicotine dependence, cigarettes, uncomplicated; Z88.5 Allergy status to narcotic agent; Z88.6 Allergy status to analgesic agent; Z88.8 Allergy status to other drugs, medicaments and biological substances; W22.8XXA Striking against or struck by other objects, initial encounter; Y93.89 Activity, other specified; Y92.89 Other specified places as the place of occurrence of the external cause; Y99.8 Other external cause status
CPT/HCPCS: 73130; 99283

== ENCOUNTER 2020-02-11 02:43 | Emergency (ER) | payer MEDICAID ==
[~2020-02-11] VITALS: Ht 154.9 cm; Wt 101.4 kg
[2020-02-11 03:00] VITALS: BP 138/83
--- NOTE | 2020-02-11 03:23 | PHYS DOC ---
Past History Past Medical History: Asthma, Endometriosis, Seizure, Other Additional Past Medical Histor: dextra cardia Past Surgical History: Appendectomy, Cholecystectomy, , Tubal ligation Additional Past Surgical Histo: mirena placed 3 wks ago Smoking: Cigarettes Alcohol Use: None Drug Use: None General Adult EDM: Chief Complaint: POST-OP PROBLEM HPI: HPI: 34-year-old female presents with right lower leg pain. Patient describes it more as a lack of feeling around her right kneecap. She just recently had a hysterectomy. She also noticed some bruising below the kneecap on the right side. She called her surgeon and they advised that she come in for DVT rule out. Patient denies falls or trauma. She has had some postop constipation, but is taking medication for this. She is urinating without difficulty. She denies any concerning bleeding or pain from the surgical site. Denies fever or chills. Review of Systems: Review of Systems: Constitutional: Denies fever or chills Eyes: Denies change in visual acuity HENT: Denies nasal congestion or sore throat Respiratory: Denies cough or shortness of breath Cardiovascular: Denies chest pain or edema GI: Denies abdominal pain, nausea, vomiting, bloody stools or diarrhea : Denies dysuria Musculoskeletal: Right lower leg pain/change in feeling Integument: Denies rash Neurologic: Denies headache, focal weakness or sensory changes Endocrine: Denies polyuria or polydipsia Lymphatic: Denies swollen glands Psychiatric: Denies depression or anxiety Heart Score: Risk Factors: Risk Factors: DM, Current or recent (<one month) smoker, HTN, HLP, family history of CAD, obesity. Risk Scores: Score 0 - 3: 2.5% MACE over next 6 weeks - Discharge Home Score 4 - 6: 20.3% MACE over next 6 weeks - Admit for Clinical Observation Score 7 - 10: 72.7% MACE over next 6 weeks - Early Invasive Strategies Allergies: Allergies: Allergies Coded Allergies Type Severity Reaction Last Updated Verified ibuprofen Allergy Intermediate 07/06/19 Yes oxycodone Allergy Intermediate 07/06/19 Yes propoxyphene Allergy Intermediate 07/06/19 Yes acetaminophen Allergy Unknown 11/26/19 Yes Physical Exam: PE: Constitutional: Well developed, well nourished, no acute distress, non-toxic appearance. [] HENT: Normocephalic, atraumatic, bilateral external ears normal, oropharynx moist, no oral exudates, nose normal. [] Eyes: PERRLA, EOMI, conjunctiva normal, no discharge. [] Neck: Normal range of motion, no tenderness, supple, no stridor. [] Cardiovascular: Heart rate regular rhythm, no murmur [] Lungs & Thorax: Bilateral breath sounds clear to auscultation [] Abdomen: Bowel sounds normal, soft, no tenderness, no masses, no pulsatile masses. [] Skin: Warm, dry, no erythema, no rash. [] Back: No tenderness, no CVA tenderness. [] Extremities: Decreased sensation of the skin over the right kneecap, prominent appearing anterior vein of the right lower leg [] Neurologic: Alert and oriented X 3, normal motor function, normal sensory function, no focal deficits noted. [] Psychologic: Affect normal, judgement normal, mood normal. [] Current Patient Data: Vital Signs: Vital Signs Date Time Temp Pulse Resp B/P (MAP) Pulse Ox O2 Delivery O2 Flow Rate FiO2 02/11/20 03:00 98.9 72 18 138/83 (101) 97 Room Air EKG: EKG: [] Radiology/Procedures: Radiology/Procedures: [] Impressions: INDICATION: Reason: recent surgery, right lower leg pain, bruising / Spl. Instructions: / History: COMPARISON: None. TECHNIQUE: Grayscale, color and doppler ultrasound images were obtained of the right lower extremity venous vasculature. RIGHT: No thrombus identified in the common femoral vein, femoral vein, popliteal vein or visualized calf veins. A couple of lymph nodes are seen in the right groin IMPRESSION: * No thrombus identified in deep venous system of right lower extremity. Electronically signed by: Kenzie Bianchi MD (02/11/2020 4:57 AM) [id number] DICTATED AND SIGNED BY: KENZIE BIANCHI MD DATE: 02/11/20 0457 CC: ARNALDO LAWTON DO; HEYDI CANCHOLA MD ~ Course & Med Decision Making: Course & Med Decision Making Pertinent Labs and Imaging studies reviewed. (See chart for details) The patient's labs are unremarkable. Her right lower extremity ultrasound is negative for DVT. I am not sure why she is having altered sensation of the knee. I have advised that she follow-up with her primary care doctor to discuss this further. She is stable for discharge at this time. [] Dragon Disclaimer: Dragon Disclaimer: This electronic medical record was generated, in whole or in part, using a voice recognition dictation system. Departure Departure: Impression: Primary Impression: Numbness and tingling of right lower extremity Disposition: HOME/RESIDENCE PRIOR TO ADM Condition: STABLE Referrals: HEYDI CANCHOLA MD (PCP) Justification of Admission: Justification of Admission: Justification of Admission Dx: N/A ARNALDO LAWTON DO Feb 11, 2020 03:23
[2020-02-11 03:47] LABS: BASO # 0.1 x10^3/uL (0.0-0.2); BASO % 1 % (0-3); EOS # 0.1 x10^3/uL (0.0-0.7); EOS % 1 % (0-3); HEMATOCRIT 35.3 % (36.0-47.0); HEMOGLOBIN 11.5 g/dL (12.0-15.5); LYMPH # 1.9 x10^3/uL (1.0-4.8); LYMPH % 20 % (24-48); MEAN CORPUSCULAR HEMOGLOBIN 28 pg (25-35); MEAN CORPUSCULAR HGB CONC 33 g/dL (31-37); MEAN CORPUSCULAR VOLUME 85 fL (79-100); MONO # 0.8 x10^3/uL (0.0-1.1); MONO % 8 % (0-9); NEUT # 6.7 x10^3uL (1.8-7.7); NEUT % 70 % (31-73); PLATELET COUNT 327 x10^3/uL (140-400); RED BLOOD COUNT 4.15 x10^6/uL (3.50-5.40); RED CELL DISTRIBUTION WIDTH 15.9 % (11.5-14.5); WHITE BLOOD COUNT 9.5 x10^3/uL (4.0-11.0)
[2020-02-11 04:02] LABS: CALCIUM 8.4 mg/dL (8.5-10.1); CREATININE 1.1 mg/dL (0.6-1.0); GFR 56.5; POTASSIUM 3.8 mmol/L (3.5-5.1)
[2020-02-11 04:16] LABS: ALBUMIN 3.3 g/dL (3.4-5.0); ALBUMIN/GLOBULIN RATIO 0.8 (1.0-1.7); TOTAL BILIRUBIN 0.3 mg/dL (0.2-1.0); TOTAL PROTEIN 7.3 g/dL (6.4-8.2)
--- NOTE | 2020-02-11 05:00 | RAD ---
INDICATION: Reason: recent surgery, right lower leg pain, bruising / Spl. Instructions: / History: COMPARISON: None. TECHNIQUE: Grayscale, color and doppler ultrasound images were obtained of the right lower extremity venous vasculature. RIGHT: No thrombus identified in the common femoral vein, femoral vein, popliteal vein or visualized calf veins. A couple of lymph nodes are seen in the right groin IMPRESSION: * No thrombus identified in deep venous system of right lower extremity. Electronically signed by: Alex Bianchi MD (02/11/2020 4:57 AM) [id number]
== END 2020-02-11 05:15 | disposition home or self-care (01) ==
LOC: ER 02:43
DX: R20.2 Paresthesia of skin (principal); M79.661 Pain in right lower leg; J45.909 Unspecified asthma, uncomplicated; F17.210 Nicotine dependence, cigarettes, uncomplicated; Z88.6 Allergy status to analgesic agent; Z88.5 Allergy status to narcotic agent; Z88.8 Allergy status to other drugs, medicaments and biological substances
CPT/HCPCS: 36415; 80053; 85025; 93971; 99284

== ENCOUNTER 2020-03-27 13:26 | Emergency (ER) | payer MEDICAID ==
[~2020-03-27] VITALS: Ht 154.9 cm; Wt 104.8 kg
[2020-03-27 13:30] VITALS: BP 143/77
--- NOTE | 2020-03-27 13:54 | PHYS DOC ---
Past History Past Medical History: Anxiety, Asthma, Depression, Endometriosis, Migraines, Ovarian Cyst, Seizure, Other Additional Past Medical Histor: dextra cardia Past Surgical History: Appendectomy, Cholecystectomy, , Hysterectomy, Tubal ligation Additional Past Surgical Histo: mirena placed 3 wks ago Smoking: Cigarettes Alcohol Use: None Drug Use: None General Adult EDM: Chief Complaint: ABDOMINAL PAIN HPI: HPI: 34-year-old female coming for right lower quadrant abdominal pain since yesterday. Started gradually but she was playing cards that were sick constant. Described the pain as sharp, unchanged with movement. States she is it feels similar to when she had ovarian cyst. Review of Systems: Review of Systems: Constitutional: Denies fever or chills Eyes: Denies change in visual acuity HENT: Denies nasal congestion or sore throat Respiratory: Denies cough or shortness of breath Cardiovascular: Denies chest pain or edema GI: Has abdominal pain but no nausea, vomiting, bloody stools or diarrhea : Denies dysuria Musculoskeletal: Denies back pain or joint pain Integument: Denies rash Neurologic: Denies headache, focal weakness or sensory changes Endocrine: Denies polyuria or polydipsia Lymphatic: Denies swollen glands Psychiatric: Denies depression or anxiety Heart Score: Risk Factors: Risk Factors: DM, Current or recent (<one month) smoker, HTN, HLP, family history of CAD, obesity. Risk Scores: Score 0 - 3: 2.5% MACE over next 6 weeks - Discharge Home Score 4 - 6: 20.3% MACE over next 6 weeks - Admit for Clinical Observation Score 7 - 10: 72.7% MACE over next 6 weeks - Early Invasive Strategies Allergies: Allergies: Allergies Coded Allergies Type Severity Reaction Last Updated Verified ibuprofen Allergy Intermediate 07/06/19 Yes oxycodone Allergy Intermediate 07/06/19 Yes propoxyphene Allergy Intermediate 07/06/19 Yes acetaminophen Allergy Unknown 11/26/19 Yes Physical Exam: PE: Constitutional: Well developed, well nourished, acute distress, non-toxic appearance. [] HENT: Normocephalic, atraumatic, bilateral external ears normal, oropharynx moist, no oral exudates, nose normal. [] Eyes: PERRLA, EOMI, conjunctiva normal, no discharge. [] Neck: Normal range of motion, no tenderness, supple, no stridor. [] Cardiovascular:Heart rate regular rhythm, no murmur [] Lungs & Thorax: Bilateral breath sounds clear to auscultation [] Abdomen: Bowel sounds normal, soft, right lower quadrant tenderness, no masses, no pulsatile masses. [] Skin: Warm, dry, no erythema, no rash. [] Back: No tenderness, no CVA tenderness. [] Extremities: No tenderness, no cyanosis, no clubbing, ROM intact, no edema. [] Neurologic: Alert and oriented X 3, normal motor function, normal sensory function, no focal deficits noted. [] Psychologic: Affect normal, judgement normal, mood normal. [] Current Patient Data: Vital Signs: Vital Signs Date Time Temp Pulse Resp B/P (MAP) Pulse Ox O2 Delivery O2 Flow Rate FiO2 03/27/20 13:30 98.3 70 16 143/77 (99) 98 EKG: EKG: [] Radiology/Procedures: Radiology/Procedures: Abdominal and Pelvis CT, Without Contrast: History: Reason: RLQ pain / Spl. Instructions: / History: Comparison: December 11, 2019. Procedure: Axial images are obtained of the abdomen and pelvis, without IV or oral contrast. Oral Contrast: No Findings: There has been prior cholecystectomy and appendectomy. There is a 5 cm length of moderate right eccentric wall thickening of the mid sigmoid colon. There has been hysterectomy. Fullness the vaginal cuff could be due to residual cervix. The ovaries are not well seen. There is a small fat-containing ventral hernia to the right of midline. Evaluation of solid organs is limited without contrast. Liver: Normal. Spleen: Normal. Pancreas: Normal. Adrenal Glands: Normal. Kidneys: Normal. There is no free air or free fluid. There is no lymphadenopathy. The urinary bladder appears normal. There is no pericolonic inflammation identified. Impression: Right eccentric wall thickening of the mid sigmoid colon. This is suspicious for an adenocarcinoma however endometriosis could have this appearance. Consider follow-up endoscopy. Transabdominal and endovaginal pelvic ultrasound. INDICATION: Right lower quadrant abdominal/pelvic pain. LMP in January 2020. COMPARISON: Abdomen and pelvis CT with IV contrast of 11/11/2019. TECHNIQUE: Grayscale and color Doppler imaging of the pelvis was performed using transabdominal and endovaginal approaches. FINDINGS: The uterus is nonvisualized, reflecting interval hysterectomy. The ovaries are not visualized. No adnexal mass or pelvic fluid collection is apparent. The urinary bladder is unremarkable. IMPRESSION: Interval changes consistent with a total hysterectomy. No pelvic fluid collection or mass identified. [] Impressions: Likely endometriosis because patient has a history of endometriosis which is why she had her hysterectomy. Discussed follow-up with her primary care for possible colonoscopy and her geophysical support specialist for management of endometriosis Course & Med Decision Making: Course & Med Decision Making Pertinent Labs and Imaging studies reviewed. (See chart for details) [] Dragon Disclaimer: Dragon Disclaimer: This electronic medical record was generated, in whole or in part, using a voice recognition dictation system. Departure Departure: Impression: Primary Impression: Abdominal pain Disposition: 01 DC HOME SELF CARE/HOMELESS Condition: STABLE Referrals: HEYDI CANCHOLA MD (PCP) Patient Instructions: Endometriosis Additional Instructions: Follow-up with your geophysical support specialist Scripts Tramadol Hcl (TRAMADOL HCL) 50 Mg Tablet 50 MG PO PRN Q6HRS PRN for PAIN for 5 Days, #15 TAB 0 Refills Prov: ANTONIO GORE MD 03/27/20 ANTONIO GORE MD Mar 27, 2020 13:54
[2020-03-27] MEDS ORDERED: KETOROLAC 60 MG/2 ML VIAL. IM ONE (14:00)
--- NOTE | 2020-03-27 14:36 | RAD ---
Transabdominal and endovaginal pelvic ultrasound. INDICATION: Right lower quadrant abdominal/pelvic pain. LMP in January 2020. COMPARISON: Abdomen and pelvis CT with IV contrast of 11/11/2019. TECHNIQUE: Grayscale and color Doppler imaging of the pelvis was performed using transabdominal and endovaginal approaches. FINDINGS: The uterus is nonvisualized, reflecting interval hysterectomy. The ovaries are not visualized. No adnexal mass or pelvic fluid collection is apparent. The urinary bladder is unremarkable. IMPRESSION: Interval changes consistent with a total hysterectomy. No pelvic fluid collection or mass identified. Electronically signed by: Cori Stewart MD (03/27/2020 2:33 PM) [id number]
--- NOTE | 2020-03-27 15:24 | RAD ---
Abdominal and Pelvis CT, Without Contrast: History: Reason: RLQ pain / Spl. Instructions: / History: Comparison: December 11, 2019. Procedure: Axial images are obtained of the abdomen and pelvis, without IV or oral contrast. Oral Contrast: No Findings: There has been prior cholecystectomy and appendectomy. There is a 5 cm length of moderate right eccentric wall thickening of the mid sigmoid colon. There has been hysterectomy. Fullness the vaginal cuff could be due to residual cervix. The ovaries are not well seen. There is a small fat-containing ventral hernia to the right of midline. Evaluation of solid organs is limited without contrast. Liver: Normal. Spleen: Normal. Pancreas: Normal. Adrenal Glands: Normal. Kidneys: Normal. There is no free air or free fluid. There is no lymphadenopathy. The urinary bladder appears normal. There is no pericolonic inflammation identified. Impression: Right eccentric wall thickening of the mid sigmoid colon. This is suspicious for an adenocarcinoma however endometriosis could have this appearance. Consider follow-up endoscopy. End impression PQRS Compliance Statement: One or more of the following individualized dose reduction techniques were utilized for this examination: 1. Automated exposure control 2. Adjustment of the mA and/or kV according to patient size 3. Use of iterative reconstruction technique Electronically signed by: Eduin Gill III, MD (03/27/2020 3:21 PM) [facility]
[2020-03-27 15:49] LABS: BILIRUBIN,URINE NEG (NEG); CLARITY,URINE CLEAR; COLOR,URINE STRAW; GLUCOSE,URINE NEG (NEG)
[2020-03-27 15:50] LABS: NITRITE,URINE NEG (NEG); UROBILINOGEN,URINE 0.2 mg/dL (0.2 mg/dL)
[2020-03-27] MEDS ORDERED: TRAM50TA PO (15:51)
[2020-03-27 15:54] LABS: BACTERIA,URINE 0 /HPF (0-FEW); RBC,URINE 0 /HPF (0-2); WBC,URINE 0 /HPF (0-4)
[2020-03-27 15:55] LABS: SQUAMOUS EPITHELIAL CELL,UR FEW /LPF
== END 2020-03-27 15:55 | disposition home or self-care (01) ==
LOC: ER 13:26
DX: R10.31 Right lower quadrant pain (principal); J45.909 Unspecified asthma, uncomplicated; G43.909 Migraine, unspecified, not intractable, without status migrainosus; F41.9 Anxiety disorder, unspecified; F17.210 Nicotine dependence, cigarettes, uncomplicated; Z90.49 Acquired absence of other specified parts of digestive tract; Z90.89 Acquired absence of other organs; Z98.890 Other specified postprocedural states; Z90.710 Acquired absence of both cervix and uterus; Z98.51 Tubal ligation status; Z88.6 Allergy status to analgesic agent; Z88.5 Allergy status to narcotic agent; Z88.8 Allergy status to other drugs, medicaments and biological substances
CPT/HCPCS: 74176; 76830; 76856; 81001; 96372; 99285; J1885

== ENCOUNTER → 2020-05-18 | Outpatient (CLI) | payer MEDICAID ==
--- NOTE | 2020-05-18 09:50 | RAD ---
KUB without comparison for no history given. FINDINGS: There has been a prior cholecystectomy. There is a nonobstructive nonspecific bowel gas pattern. No pathologic calcifications are identified. No significant osseous abnormalities are seen. IMPRESSION: 1. Nonobstructive nonspecific bowel gas pattern. Electronically signed by: Marcos Crum MD (05/18/2020 9:47 AM) [id number]
== END ==
LOC: PMG 08:55
PROVIDERS: ATTEND Physician Assistant
DX: R10.30 Lower abdominal pain, unspecified (principal); R19.7 Diarrhea, unspecified; N80.9 Endometriosis, unspecified; Z90.49 Acquired absence of other specified parts of digestive tract
CPT/HCPCS: 74019

== ENCOUNTER → 2020-05-24 | Outpatient (CLI) | payer MEDICAID ==
--- NOTE | 2020-05-24 11:39 | RAD ---
EXAMINATION: CT ABDOMEN+PELVIS WO (CT ABDOMEN/PELVIS WITHOUT IV CONTRAST) CLINICAL HISTORY: Recurrent abdominal pain and constipation following hysterectomy in January 2020. Hi story of APPENDECTOMY, EXPLORATORY X 7, CHOLECYSTECTOMY TECHNIQUE: Non-IV contrast imaging of the abdomen and pelvis was performed using standard technique, scanning from just above the dome of the diaphragm to the symphysis pubis. Unenhanced imaging is hill ited for the evaluation of some intra-abdominal and pelvic pathology. CT Dose Reduction Employed: One or more of the following individualized dose reduction techniques wer e utilized for this examination: 1. Automated exposure control 2. Adjustment of the mA and/or kV ac cording to patient size 3. Use of iterative reconstruction technique. COMPARISON: 03/28/2020, 11/11/2019, 07/06/2019 FINDINGS: Partially visualized heart and lung bases unremarkable. Cholecystectomy. Liver, pancreas, spleen, adrenal glands, and kidneys unremarkable. Mildly filled urinary bladder. Hysterectomy. No pelvic free fluid. No dilated bowel. Redemonstration of eccentric wall thickening in the mid sigmoid colon, similar on m ultiple prior studies. Appendectomy. No abdominal aortic or iliac artery aneurysm. No significant lymphadenopathy. Mild degenerative changes at multiple small vertebral hemangiomas in the thoracic spine. IMPRESSION: No evidence of acute abdominopelvic abnormality or significant interval change. Redemonstration of eccentric wall thickening in the mid sigmoid colon, nonspecific but can be seen wi th adenocarcinoma. Recommend correlation with colonoscopy if one has not been recently obtained. Electronically signed by: Tommie Jackman DO (05/24/2020 11:36 AM) [id number]
== END ==
LOC: CT 10:21
PROVIDERS: ATTEND Physician Assistant
DX: C18.7 Malignant neoplasm of sigmoid colon (principal); Z90.49 Acquired absence of other specified parts of digestive tract
CPT/HCPCS: 74176

== ENCOUNTER 2020-07-23 07:17 | Emergency (ER) | payer MEDICAID ==
[~2020-07-23] VITALS: Ht 154.9 cm; Wt 104.8 kg
[2020-07-23] MEDS ORDERED: ONDANSETRON PF 4 MG/2 ML VIAL. ONE (07:30)
[2020-07-23] MEDS ORDERED: FAMOTIDINE 20 MG/2 ML VIAL ONE (07:30)
[2020-07-23 07:38] VITALS: BP 119/72
[2020-07-23] MEDS ORDERED: ONDANSETRON PF 4 MG/2 ML VIAL. IVP ONE (07:45)
[2020-07-23] MEDS ORDERED: FAMOTIDINE 20 MG/2 ML VIAL IVP ONE (07:45)
[2020-07-23 07:51] LABS: BASO # 0.1 x10^3/uL (0.0-0.2); BASO % 1 % (0-3); EOS # 0.1 x10^3/uL (0.0-0.7); EOS % 1 % (0-3); HEMATOCRIT 39.2 % (36.0-47.0); HEMOGLOBIN 12.8 g/dL (12.0-15.5); LYMPH # 3.1 x10^3/uL (1.0-4.8); LYMPH % 33 % (24-48); MEAN CORPUSCULAR HEMOGLOBIN 30 pg (25-35); MEAN CORPUSCULAR HGB CONC 33 g/dL (31-37); MEAN CORPUSCULAR VOLUME 90 fL (79-100); MONO # 0.6 x10^3/uL (0.0-1.1); MONO % 6 % (0-9); NEUT # 5.7 x10^3uL (1.8-7.7); NEUT % 60 % (31-73); PLATELET COUNT 333 x10^3/uL (140-400); RED BLOOD COUNT 4.34 x10^6/uL (3.50-5.40); RED CELL DISTRIBUTION WIDTH 16.5 % (11.5-14.5); WHITE BLOOD COUNT 9.6 x10^3/uL (4.0-11.0)
[2020-07-23] MEDS ORDERED: IOHEXOL 240 MG/ML 50ML VIAL. ONE (07:52)
[2020-07-23 07:58] LABS: CALCIUM 7.8 mg/dL (8.5-10.1); GFR 63.1; POTASSIUM 3.5 mmol/L (3.5-5.1)
[2020-07-23] MEDS ORDERED: HYOSCYAMINE 0.125 MG TAB.RAPDIS PO ONE (08:00)
[2020-07-23] MEDS ORDERED: IOHEXOL 300 MG/ML 75 ML VIAL. IV ONE (08:00)
[2020-07-23 08:06] LABS: ALBUMIN 3.5 g/dL (3.4-5.0); ALBUMIN/GLOBULIN RATIO 0.9 (1.0-1.7); TOTAL BILIRUBIN 0.2 mg/dL (0.2-1.0); TOTAL PROTEIN 7.4 g/dL (6.4-8.2)
[2020-07-23] MEDS ORDERED: CONTRAST GIVEN. MC PRN (08:15)
[2020-07-23 08:59] LABS: BILIRUBIN,URINE NEG (NEG); CLARITY,URINE CLOUDY; COLOR,URINE STRAW; GLUCOSE,URINE NEG (NEG); NITRITE,URINE NEG (NEG); RBC,URINE OCC /HPF (0-2); UROBILINOGEN,URINE 0.2 mg/dL (0.2 mg/dL)
[2020-07-23 09:00] LABS: BACTERIA,URINE MOD /HPF (0-FEW); SQUAMOUS EPITHELIAL CELL,UR MANY /LPF
--- NOTE | 2020-07-23 09:17 | RAD ---
CT ABDOMEN+PELVIS W History: Reason: Severe abd pain, nausea, vomiting Omni 300 75cc / Spl. Instructions: / History: Technique: After the administration of intravenous contrast, CT imaging was performed of the abdomen and pelvis. Multiplanar images are reviewed. Exposure: One or more of the following individualized dose reduction techniques were utilized for thi s examination: 1. Automated exposure control 2. Adjustment of the mA and/or kV according to patient size 3. Use of iterative reconstruction technique. Comparison: May 24, 2020 and March 27, 2020 Findings: Lower chest: No consolidation or pleural effusion. Abdomen and pelvis: Hepatic steatosis. The spleen, adrenal glands, and pancreas are unremarkable. Chel or cholecystectomy. No biliary ductal dilatation. Patent portal veins. Unremarkable kidneys. No hydro nephrosis. Appendix not well seen. No evidence of bowel obstruction. Oral contrast opacifies through the colon. No pathologic lymphadenopathy. No ascites. Prior hysterectomy. Linear infiltration of the pelvic fat, unchanged and potentially postoperative. Ovaries are unremarkable. Mid sigmoid colonic eccentric wall thickening, unchanged. Bones: No pathologic osseous lesions. Impression: 1. No acute abdominal or pelvic pathology. 2. Unchanged mid sigmoid colonic eccentric wall thickening. Recommend colonoscopy if not already per formed. Electronically signed by: Rickey Vega DO (07/23/2020 9:15 AM) [facility]
--- NOTE | 2020-07-23 09:35 | PHYS DOC ---
Past History Past Medical History: Anxiety, Asthma, Constipation, Depression, Endometriosis, Kidney Stones, Migraines, Ovarian Cyst, Seizure, UTI, Other Additional Past Medical Histor: dextra cardia Past Surgical History: Appendectomy, Cholecystectomy, , Hysterectomy, Tubal ligation Smoking: Cigarettes Alcohol Use: None Drug Use: None Adult General Chief Complaint Chief Complaint: HEMATEMESIS/VOMITING BLOOD [facility] HPI Patient is a 34-year-old female who presents to the emergency room complaining of sharp lower abdominal pain that woke her from her sleep at 6 AM this morning. She states shortly after she started having episodes of vomiting. She states the vomit was brown and there may have been little specks of blood in it. She states she felt normal before going to bed. She states she is never had abdominal pain like this previously. It is in a similar location as her abdominal pain that she has had before but this is much worse than normal. She states she has endometriosis, however she also states she has had a hysterectomy. She has not had any known fevers. She does not have any chest pain, shortness of breath, syncope. Review of Systems Review of Systems Complete ROS is negative unless otherwise documented in HPI Current Medications Current Medications Current Medications Medications (Trade) Dose Ordered Sig/Hosea Start Time Stop Time Status Last Admin Dose Admin Famotidine (Pepcid Vial) 20 mg 1X ONCE 07/23/20 07:45 07/23/20 07:47 DC 07/23/20 07:33 20 MG Hyoscyamine (Anaspaz) 0.125 mg 1X ONCE 07/23/20 08:00 07/23/20 08:03 DC 07/23/20 09:09 0.125 MG Info (Do NOT chart on this entry -- for MONITORING) 1 each PRN DAILY PRN 07/23/20 08:15 07/25/20 08:14 Iohexol (Omnipaque 240 Mg/ml) 50 ml STK-MED ONCE 07/23/20 07:52 07/23/20 07:52 DC Iohexol (Omnipaque 300 Mg/ml) 75 ml 1X ONCE 07/23/20 08:00 07/23/20 08:02 DC 07/23/20 09:04 75 ML Ondansetron HCl (Zofran) 4 mg 1X ONCE 07/23/20 07:45 07/23/20 07:47 DC 07/23/20 07:33 4 MG Allergies Allergies Allergies Coded Allergies Type Severity Reaction Last Updated Verified ibuprofen Allergy Intermediate 07/06/19 Yes oxycodone Allergy Intermediate 07/06/19 Yes propoxyphene Allergy Intermediate 07/06/19 Yes acetaminophen Allergy Unknown 11/26/19 Yes Physical Exam Physical Exam General: Awake, alert, tearful well Nourished, well hydrated. Cooperative HEENT: Atraumatic, EOMI, PERRL, airway patent, moist oral mucosa Neck: Supple, trachea midline Respiratory: CTA bilaterally, normal effort, no wheezing/crackles CV: RRR, no murmur, cap refill <2 GI: Soft, nondistended, nontender, no masses MSK: No obvious deformities Skin: Warm, dry, intact Neuro: A&O x3, speech NL, sensory and motor grossly intact, no focal deficits Psych: not suicidal or homicidal Current Patient Data Vital Signs Vital Signs Date Time Temp Pulse Resp B/P (MAP) Pulse Ox O2 Delivery O2 Flow Rate FiO2 07/23/20 07:38 70 18 119/72 (88) 97 Room Air 07/23/20 07:17 97.7 Lab Results Laboratory Tests Test 07/23/20 07:22 07/23/20 08:00 07/23/20 08:38 White Blood Count 9.6 x10^3/uL (4.0-11.0) Red Blood Count 4.34 x10^6/uL (3.50-5.40) Hemoglobin 12.8 g/dL (12.0-15.5) Hematocrit 39.2 % (36.0-47.0) Mean Corpuscular Volume 90 fL (79-100) Mean Corpuscular Hemoglobin 30 pg (25-35) Mean Corpuscular Hemoglobin Concent 33 g/dL (31-37) Red Cell Distribution Width 16.5 % (11.5-14.5) H Platelet Count 333 x10^3/uL (140-400) Neutrophils (%) (Auto) 60 % (31-73) Lymphocytes (%) (Auto) 33 % (24-48) Monocytes (%) (Auto) 6 % (0-9) Eosinophils (%) (Auto) 1 % (0-3) Basophils (%) (Auto) 1 % (0-3) Neutrophils # (Auto) 5.7 x10^3uL (1.8-7.7) Lymphocytes # (Auto) 3.1 x10^3/uL (1.0-4.8) Monocytes # (Auto) 0.6 x10^3/uL (0.0-1.1) Eosinophils # (Auto) 0.1 x10^3/uL (0.0-0.7) Basophils # (Auto) 0.1 x10^3/uL (0.0-0.2) Sodium Level 137 mmol/L (136-145) Potassium Level 3.5 mmol/L (3.5-5.1) Chloride Level 102 mmol/L (98-107) Carbon Dioxide Level 23 mmol/L (21-32) Anion Gap 12 (6-14) Blood Urea Nitrogen 8 mg/dL (7-20) Creatinine 1.0 mg/dL (0.6-1.0) Estimated GFR (Cockcroft-Gault) 63.1 BUN/Creatinine Ratio 8 (6-20) Glucose Level 109 mg/dL (70-99) H Calcium Level 7.8 mg/dL (8.5-10.1) L Total Bilirubin 0.2 mg/dL (0.2-1.0) Aspartate Amino Transferase (AST) 18 U/L (15-37) Alanine Aminotransferase (ALT) 31 U/L (14-59) Alkaline Phosphatase 59 U/L (46-116) Total Protein 7.4 g/dL (6.4-8.2) Albumin 3.5 g/dL (3.4-5.0) Albumin/Globulin Ratio 0.9 (1.0-1.7) L Prothrombin Time 9.7 SEC (9.4-11.4) Prothrombin Time INR 0.9 (0.9-1.1) Activated Partial Thromboplast Time 24 SEC (23-33) Urine Collection Type Unknown Urine Color Straw Urine Clarity Cloudy Urine pH 7.0 Urine Specific [place] 1.010 Urine Protein Neg (NEG-TRACE) Urine Glucose (UA) Neg mg/dL (NEG) Urine Ketones (Stick) Neg mg/dL (NEG) Urine Blood Neg (NEG) Urine Nitrite Neg (NEG) Urine Bilirubin Neg (NEG) Urine Urobilinogen Dipstick 0.2 mg/dL (0.2 mg/dL) Urine Leukocyte Esterase Neg (NEG) Urine RBC Occ /HPF (0-2) Urine WBC 1-4 /HPF (0-4) Urine Squamous Epithelial Cells Many /LPF Urine Bacteria Mod /HPF (0-FEW) Urine Mucus Slight /LPF EKG EKG [] Radiology/Procedures Radiology/Procedures [] Heart Score Risk Factors: Risk Factors: DM, Current or recent (<one month) smoker, HTN, HLP, family history of CAD, obesity. Risk Scores: Risk Factors: DM, Current or recent (<one month) smoker, HTN, HLP, family history of CAD, obesity. Course & Med Decision Making Course & Med Decision Making Pertinent Labs and Imaging studies reviewed. (See chart for details) Patient is a 34-year-old female who presents to the emergency room with lower abdominal pain that she states is the worst pain she has ever had and possible hematemesis. Patient does not have any vomiting here in the emergency room. Hemoglobin is normal. Abdominal lab work is unremarkable. CT abdomen pelvis is normal. Patient has had a complete hysterectomy including ovarian removal and does not need a pelvic ultrasound. Patient's test results and vitals while in the ED were fully reviewed and discussed with the patient. Patient is stable and at this time does not need admission to the hospital. We have discussed strict return precautions and the importance of following up with their Primary Care Physician. Patient stated understanding and was given an opportunity to ask any questions. Patient is in agreement with plan. Dragon Disclaimer Dragon Disclaimer This electronic medical record was generated, in whole or in part, using a voice recognition dictation system. Departure Departure: Impression: Primary Impression: Abdominal pain Additional Impression: Vomiting Disposition: 01 DC HOME SELF CARE/HOMELESS Condition: STABLE Referrals: BECKIE SAVAGE (PCP) Patient Instructions: Abdominal Pain, Hematemesis Problem Qualifiers SMITA ANDERSON MD Jul 23, 2020 09:35
== END 2020-07-23 09:45 | disposition home or self-care (01) ==
LOC: ER 07:17
DX: R10.30 Lower abdominal pain, unspecified (principal); R11.10 Vomiting, unspecified; J45.909 Unspecified asthma, uncomplicated; Z88.6 Allergy status to analgesic agent; Z88.8 Allergy status to other drugs, medicaments and biological substances; Z88.5 Allergy status to narcotic agent; Z90.49 Acquired absence of other specified parts of digestive tract; Z90.710 Acquired absence of both cervix and uterus; Z98.51 Tubal ligation status; Z87.442 Personal history of urinary calculi
CPT/HCPCS: 36415; 74177; 80053; 81001; 85025; 85610; 85730; 87086; 96374; 96375; 99285; J2405; J3490; Q9967; 99284-25

== ENCOUNTER 2020-08-12 16:32 | Emergency (ER) | payer MEDICAID ==
[~2020-08-12] VITALS: Ht 154.9 cm; Wt 104.8 kg
[2020-08-12] MEDS ORDERED: HYDROcodone/APAP 5/325MG 1 TAB TABLET PO ONE (16:45)
[2020-08-12 16:52] VITALS: BP 124/69
--- NOTE | 2020-08-12 17:09 | RAD ---
Exam: Right ankle 3 views INDICATION: Inversion, lateral pain TECHNIQUE: Frontal, lateral and oblique views of the right ankle Comparisons: None FINDINGS: Bone mineralization is normal. No acute or healed fractures. Soft tissues are unremarkable. Joint spa michelle are well-maintained. IMPRESSION: No acute osseous abnormality. Electronically signed by: Gordo Galicia MD (08/12/2020 5:07 PM) MINNIE
[2020-08-12] MEDS ORDERED: TRAM50TA PO (17:20)
--- NOTE | 2020-08-12 17:20 | PHYS DOC ---
Past History Past Medical History: Anxiety, Asthma, Constipation, Depression, Endometriosis, Kidney Stones, Migraines, Ovarian Cyst, Seizure, UTI, Other Additional Past Medical Histor: dextra cardia Past Surgical History: Appendectomy, Cholecystectomy, , Hysterectomy, Tubal ligation Smoking: Cigarettes Alcohol Use: None Drug Use: None General Adult EDM: Chief Complaint: ANKLE PROBLEM HPI: HPI: Patient is a 34-year-old female coming in for right ankle pain and swelling. Just prior to arrival she was doing yard work and stepped into a hole and she felt her ankle rolled in. Patient has not been ambulate secondary to pain. States she fell to the ground but denies any other injuries or pain. Has not taken anything for pain prior to arrival. No other complaints, states she otherwise has been well. Has a history significant for a prior fracture to her right ankle that was managed nonoperatively. Complaining of paresthesias, but no decreased sensation or loss of movement. Review of Systems: Review of Systems: Constitutional: Denies fever or chills Eyes: Denies change in visual acuity HENT: Denies nasal congestion or sore throat Respiratory: Denies cough or shortness of breath Cardiovascular: Denies chest pain or edema GI: Denies abdominal pain, nausea, vomiting, bloody stools or diarrhea : Denies dysuria Musculoskeletal: Denies back pain or joint pain Integument: Denies rash Neurologic: Denies headache, focal weakness or sensory changes Endocrine: Denies polyuria or polydipsia Lymphatic: Denies swollen glands Psychiatric: Denies depression or anxiety Current Medications: Current Meds: Current Medications Medications (Trade) Dose Ordered Sig/Hosea Start Time Stop Time Status Last Admin Dose Admin Acetaminophen/ Hydrocodone Bitart (Lortab 5/325) 1 tab 1X ONCE 08/12/20 16:45 08/12/20 16:55 DC Allergies: Allergies: Allergies Coded Allergies Type Severity Reaction Last Updated Verified ibuprofen Allergy Intermediate 07/06/19 Yes oxycodone Allergy Intermediate 07/06/19 Yes propoxyphene Allergy Intermediate 07/06/19 Yes acetaminophen Allergy Unknown 11/26/19 Yes Physical Exam: PE: Constitutional: Well developed, well nourished, no acute distress, non-toxic appearance. [] HENT: Normocephalic, atraumatic, bilateral external ears normal, oropharynx moist, no oral exudates, nose normal. [] Eyes: PERRLA, EOMI, conjunctiva normal, no discharge. [] Neck: Normal range of motion, no tenderness, supple, no stridor. [] Cardiovascular:Heart rate regular rhythm, no murmur [] Lungs & Thorax: Bilateral breath sounds clear to auscultation [] Abdomen: Bowel sounds normal, soft, no tenderness, no masses, no pulsatile masses. [] Skin: Warm, dry, no erythema, no rash. [] Back: No tenderness, no CVA tenderness. [] Extremities: No tenderness, no cyanosis, no clubbing, ROM intact, no edema. [] Neurologic: Alert and oriented X 3, normal motor function, normal sensory function, no focal deficits noted. [] Psychologic: Affect normal, judgement normal, mood normal. [] Current Patient Data: Vital Signs: Vital Signs Date Time Temp Pulse Resp B/P (MAP) Pulse Ox O2 Delivery O2 Flow Rate FiO2 08/12/20 16:52 98.0 78 18 124/69 (87) 98 Room Air EKG: EKG: [] Radiology/Procedures: Radiology/Procedures: Exam: Right ankle 3 views INDICATION: Inversion, lateral pain TECHNIQUE: Frontal, lateral and oblique views of the right ankle Comparisons: None FINDINGS: Bone mineralization is normal. No acute or healed fractures. Soft tissues are unremarkable. Joint spaces are well-maintained. IMPRESSION: No acute osseous abnormality. [] Heart Score: C/O Chest Pain: No Risk Factors: Risk Factors: DM, Current or recent (<one month) smoker, HTN, HLP, family hist ory of CAD, obesity. Risk Scores: Score 0 - 3: 2.5% MACE over next 6 weeks - Discharge Home Score 4 - 6: 20.3% MACE over next 6 weeks - Admit for Clinical Observation Score 7 - 10: 72.7% MACE over next 6 weeks - Early Invasive Strategies Course & Med Decision Making: Course & Med Decision Making Pertinent Labs and Imaging studies reviewed. (See chart for details) [] Dragon Disclaimer: Dragon Disclaimer: This electronic medical record was generated, in whole or in part, using a voice recognition dictation system. Departure Departure: Impression: Primary Impression: Right ankle sprain Disposition: 01 DC HOME SELF CARE/HOMELESS Condition: STABLE Referrals: BECKIE SAVAGE (PCP) Patient Instructions: RICE - Routine Care for Injuries Scripts Tramadol Hcl (TRAMADOL HCL) 50 Mg Tablet 50 MG PO PRN Q6HRS PRN for PAIN for 3 Days, #10 TAB Prov: ANTONIO GORE MD 08/12/20 ANTONIO GORE MD Aug 12, 2020 17:20
== END 2020-08-12 17:32 | disposition home or self-care (01) ==
LOC: ER 16:32
DX: S93.401A Sprain of unspecified ligament of right ankle, initial encounter (principal); F41.9 Anxiety disorder, unspecified; J45.909 Unspecified asthma, uncomplicated; F32.9 Major depressive disorder, single episode, unspecified; F17.210 Nicotine dependence, cigarettes, uncomplicated; G43.909 Migraine, unspecified, not intractable, without status migrainosus; Z87.442 Personal history of urinary calculi; Z87.440 Personal history of urinary (tract) infections; Z88.6 Allergy status to analgesic agent; Z88.5 Allergy status to narcotic agent; Z88.8 Allergy status to other drugs, medicaments and biological substances; W18.39XA Other fall on same level, initial encounter; Y93.89 Activity, other specified; Y92.89 Other specified places as the place of occurrence of the external cause; Y99.8 Other external cause status
CPT/HCPCS: 73610; 99283

== ENCOUNTER → 2020-09-16 | Outpatient (CLI) | payer MEDICAID ==
[~2020-09-16] MED LIST changes: +IOHEXOL 240 MG/ML 50ML VIAL. ONE; +IOHEXOL 240 MG/ML 50ML VIAL. PO ONE; +IOHEXOL 350 MG/ML 100 ML VIAL. IV ONE
--- NOTE | 2020-09-16 11:11 | RAD ---
CT scan of the abdomen and pelvis with contrast 09/16/2020 CLINICAL HISTORY: Diarrhea. Right lower quadrant abdominal pain for 2 years. TECHNIQUE: After the oral administration contrast and the intravenous administration of 91 cc of Isov ue-370 only, contiguous, 5 mm axial sections were obtained through the abdomen and pelvis. One or more of the following individualized dose reduction techniques were utilized for this study: 1. Automated exposure control. 2. Adjustment of the mA and/or kV according to patient size. 3. Use of iterative reconstruction technique. FINDINGS: Comparison study is dated 07/23/2020. Images through the lung bases demonstrate minimal dependent subsegmental atelectasis bilaterally. The re is mild cardiomegaly. The liver is mildly enlarged measuring 18.3 cm in length. Decreased attenuation of the liver parenchy ma is seen consistent with fatty infiltration. The spleen, pancreas, adrenal glands and kidneys are w ithin normal limits. The abdominal aorta tapers normally. Surgical clips are seen within the gallbladder fossa consistent with a cholecystectomy. No free fluid or free air is seen within the abdomen. There is no evidence of bowel obstruction. The patient is post appendectomy. A somewhat oval-shaped area of soft tissue atte nuation is seen medial to the surgical clips within the right lower quadrant abdomen which measures 3 cm in greatest diameter. This has decreased in size since the previous examination where it measured 4 cm . A small fat-containing right paracentral ventral hernia is seen which measures 3.7 cm in size . This is just superior to the umbilicus. It is unchanged. Images through the pelvis demonstrate the urinary bladder distended with urine. The patient is post h ysterectomy. No adnexal mass is seen. No free fluid is noted. Minimal S-shaped curvature of the thora columbar spine is seen. Degenerative changes are seen involving lower thoracic and mid and lower lumb ar spine along with both hips. IMPRESSION: No acute abnormality is seen. Electronically signed by: Hebert Weinberg MD (09/16/2020 11:09 AM) [id number]
== END ==
LOC: CT 08:54
PROVIDERS: ATTEND Internal Medicine Gastroenterology
DX: K43.9 Ventral hernia without obstruction or gangrene (principal); R19.7 Diarrhea, unspecified; N32.89 Other specified disorders of bladder; R16.0 Hepatomegaly, not elsewhere classified; J98.11 Atelectasis; I51.7 Cardiomegaly; M47.815 Spondylosis without myelopathy or radiculopathy, thoracolumbar region; M43.8X5 Other specified deforming dorsopathies, thoracolumbar region; M16.0 Bilateral primary osteoarthritis of hip; Z98.890 Other specified postprocedural states
CPT/HCPCS: 74177; Q9967

== ENCOUNTER → 2020-09-27 | Outpatient (CLI) | payer MEDICAID ==
[~2020-09-27] MED LIST changes: -IOHEXOL 240 MG/ML 50ML VIAL. ONE; -IOHEXOL 240 MG/ML 50ML VIAL. PO ONE; -IOHEXOL 350 MG/ML 100 ML VIAL. IV ONE
== END ==
LOC: LAB 13:28
PROVIDERS: ATTEND Obstetrics & Gynecology
DX: N80.9 Endometriosis, unspecified (principal)
CPT/HCPCS: 36415; 82670

== ENCOUNTER 2020-09-30 18:59 | Emergency (ER) | payer MEDICAID ==
[~2020-09-30] VITALS: Ht 154.9 cm; Wt 104.8 kg
[2020-09-30] MEDS ORDERED: LIDOCAINE/EPI/TETRACAINE TOPICAL GEL 3 ML. TP ONE ×2 (19:20→19:45)
--- NOTE | 2020-09-30 19:22 | PHYS DOC ---
Past History Past Medical History: Anxiety, Asthma, Constipation, Depression, Endometriosis, Kidney Stones, Migraines, Ovarian Cyst, Seizure, UTI, Other Additional Past Medical Histor: dextra cardia Past Surgical History: Appendectomy, Cholecystectomy, , Hysterectomy, Tubal ligation Smoking: Cigarettes Alcohol Use: None Drug Use: None Adult General Chief Complaint Chief Complaint: LACERATION/AVULSION HPI HPI Patient is a 34-year-old female who presents with a laceration to right ring finger. States she was at home just before coming in using a potato slicer and cut her finger. States she is up-to-date on her tetanus vaccinations. Denies any other injuries. Review of Systems Review of Systems Review of systems otherwise unremarkable except noted in HPI Current Medications Current Medications Current Medications Medications (Trade) Dose Ordered Sig/Hosea Start Time Stop Time Status Last Admin Dose Admin Lidocaine/ Epinephrine (Let (Kydg-Dbtqyex-Xidkg) Gel) 3 ml STK-MED ONCE 09/30/20 19:20 09/30/20 19:20 DC Allergies Allergies Allergies Coded Allergies Type Severity Reaction Last Updated Verified ibuprofen Allergy Intermediate 07/06/19 Yes oxycodone Allergy Intermediate 07/06/19 Yes propoxyphene Allergy Intermediate 07/06/19 Yes acetaminophen Allergy Unknown 11/26/19 Yes Physical Exam Physical Exam Constitutional: Well developed, well nourished, no acute distress, non-toxic appearance. [] Skin: Warm, dry, no erythema, no rash. [] Extremities: Approximately 2 cm linear laceration on the medial side of the right ring finger, hemostasis achieved with direct pressure no cyanosis, no clubbing, ROM intact, no edema. [] Neurologic: Alert and oriented X 3, no focal deficits noted. [] Psychologic: Affect normal, judgement normal, mood normal. [] EKG EKG [] Radiology/Procedures Radiology/Procedures Wound extensively cleaned with sterile water. L ET placed for topical anesthesia. 3 sutures placed of 6.0 Prolene. Patient tolerated well. Bandaged. [] Heart Score C/O Chest Pain: No Risk Factors: Risk Factors: DM, Current or recent (<one month) smoker, HTN, HLP, family history of CAD, obesity. Risk Scores: Risk Factors: DM, Current or recent (<one month) smoker, HTN, HLP, family history of CAD, obesity. Course & Med Decision Making Course & Med Decision Making Patient is a 34-year-old female who presents with finger laceration Vital signs not concerning. Physical exam noted above. Patient denied need for pain medicine, stating that she is allergic to most anyway. L ET placed for topical anesthesia. Suture repair done. Patient tolerated well. Up-to-date on tetanus. Gave wound care instructions. Advised to follow-up with primary care physician in 5 to 7 days for wound check and suture removal. Gave return precautions to the ED. Patient grateful, verbalized understanding and agreed with plan of discharge. [] Dragon Disclaimer Dragon Disclaimer This electronic medical record was generated, in whole or in part, using a voice recognition dictation system. Departure Departure: Disposition: HOME / SELF CARE / HOMELESS Condition: GOOD Referrals: BECKIE SAVAGE (PCP) Patient Instructions: Sutured Wound Care Additional Instructions: Please read all the attached information. Please continue ice as needed for pain control at home. Please follow-up with your primary care physician in 5 to 7 days for a wound check and suture removal. If you cannot get into your primary care you can return to the emergency department for a wound check and suture removal. Please come back to the emergency department with new or concerning symptoms as discussed. OCTAVIA ALMONTE MD Sep 30, 2020 19:22
[2020-09-30] MEDS ORDERED: HYDROcodone/APAP 5/325MG 1 TAB TABLET ONE (20:18)
[2020-09-30 20:24] VITALS: BP 124/54
[2020-09-30] MEDS ORDERED: HYDROcodone/APAP 5/325MG 1 TAB TABLET PO ONE (20:30)
== END 2020-09-30 20:24 | disposition home or self-care (01) ==
LOC: ER 18:59
DX: S61.214A Laceration without foreign body of right ring finger without damage to nail, initial encounter (principal); F41.9 Anxiety disorder, unspecified; J45.909 Unspecified asthma, uncomplicated; F32.9 Major depressive disorder, single episode, unspecified; G43.909 Migraine, unspecified, not intractable, without status migrainosus; F17.210 Nicotine dependence, cigarettes, uncomplicated; Z87.442 Personal history of urinary calculi; Z87.440 Personal history of urinary (tract) infections; Z88.5 Allergy status to narcotic agent; Z88.6 Allergy status to analgesic agent; Z88.8 Allergy status to other drugs, medicaments and biological substances; W26.8XXA Contact with other sharp object(s), not elsewhere classified, initial encounter; Y93.89 Activity, other specified; Y92.89 Other specified places as the place of occurrence of the external cause; Y99.8 Other external cause status
CPT/HCPCS: 12001; 99283

== ENCOUNTER 2020-11-15 17:02 | Emergency (ER) | payer MEDICAID ==
[~2020-11-15] VITALS: Ht 154.9 cm; Wt 98.9 kg
[2020-11-15] MEDS ORDERED: MORPHINE SULFATE 4 MG/ML DISP.SYRIN. IV ONE (19:00)
[2020-11-15] MEDS ORDERED: ONDANSETRON PF 4 MG/2 ML VIAL. IVP ONE (19:00)
[2020-11-15] MEDS ORDERED: IV NORMAL SALINE 1,000ML 1,000 ML IV ONE (19:00)
--- NOTE | 2020-11-15 19:31 | RAD ---
Exam: CT abdomen/pelvis without contrast Indication: Generalized abdominal pain. Right lower quadrant pain radiating to back. Comparison: CT abdomen pelvis 09/16/2020 Technique: Helical CT imaging performed of the abdomen and pelvis without contrast. Sagittal and herb nal reformats were obtained. One or more of the following individualized dose reduction techniques were utilized for this examinat ion: 1. Automated exposure control 2. Adjustment of the mA and/or kV according to patient size 3. Use of iterative reconstruction technique. Findings: Lower chest: Calcifications in the lower inner right breast. Lung bases are clear. Heart is normal in size. Liver: The liver is normal in size. There is a geographic, bandlike area of hypoattenuation in the po sterior right hepatic lobe that is unchanged from 09/16/2020, possibly focal fat. Evaluation of the inderjit er, specifically for underlying mass is limited by noncontrast exam. Gallbladder/Biliary Tree: The gallbladder is surgically absent. Bile ducts are normal. Pancreas: Normal. Spleen: Normal. Adrenal Glands: Normal. Kidneys/Ureters/Bladder: Normal. Reproductive Organs: Uterus is surgically absent. No adnexal mass. Stomach, small bowel, and colon: The stomach and small bowel are normal. There are surgical changes o f appendectomy. Focal eccentric wall thickening of the mid sigmoid colon is unchanged. Most of the co rachel is decompressed, limiting evaluation. Vasculature: Aorta is normal in caliber. Lymph Nodes: No lymphadenopathy. Peritoneum and retroperitoneum: No free fluid or free air. Bones: No acute osseous abnormality. Unchanged angiomas in the T10 and T11 vertebral bodies. Impression: 1. Unchanged focal eccentric wall thickening in the mid sigmoid colon. Colonoscopy should be perform ed to exclude malignancy if not already performed. 2. Bandlike, geographic area of hypoattenuation in the posterior right hepatic lobe. This may reflec t focal fatty infiltration and was seen on 09/16/2020 however evaluation for underlying liver lesion is limited on this exam due to lack of IV contrast. Electronically signed by: Miri Escalante MD (11/15/2020 7:28 PM) [id number]
--- NOTE | 2020-11-15 19:44 | PHYS DOC ---
Past History Past Medical History: Anxiety, Asthma, Depression, Migraines Additional Past Medical Histor: hernia, convulsive syncope, dextracardia, stage IV endometriosis (DADA ISLAS APRN) Past Surgical History: Hysterectomy Additional Past Surgical Histo: mirena placed 3 wks ago (DADA ISLAS APRN) Smoking: Cigarettes Additional Smoking Information: 2 cigarettes/day Alcohol Use: None Drug Use: None (DADA ISLAS APRN) General Adult EDM: Chief Complaint: ABDOMINAL PAIN HPI: HPI: Patient is a 35-year-old female presents with generalized abdominal pain. Patient states that she was told by a GI doctor on 10/14 that she had a hernia and needed surgery, but were unable to perform surgery due to her weight. Patient s tates that she has been having diarrhea, nausea and vomiting and generalized pain. Patient states "I just cannot take the pain anymore it has gotten so much worse". Patient's been taking Tylenol and tramadol for discomfort with little relief. Last dose of tramadol was at 8 AM. History of anxiety, asthma, dextrocardia, migraines. (DADA ISLAS APRN) Review of Systems: Review of Systems: Constitutional: Denies fever or chills Eyes: Denies change in visual acuity HENT: Denies nasal congestion or sore throat Respiratory: Denies cough or shortness of breath Cardiovascular: Denies chest pain or edema GI: Reports generalized abdominal pain, nausea, vomiting, diarrhea Musculoskeletal: Denies back pain or joint pain Integument: Denies rash Neurologic: Denies headache, focal weakness or sensory changes Endocrine: Denies polyuria or polydipsia Lymphatic: Denies swollen glands Psychiatric: Reports depression and anxiety (DADA ISLAS APRN) Current Medications: Current Meds: Current Medications Medications (Trade) Dose Ordered Sig/Hosea Start Time Stop Time Status Last Admin Dose Admin Morphine Sulfate (Morphine 4mg Syringe) 4 mg 1X ONCE 11/15/20 19:00 11/15/20 19:01 DC Ondansetron HCl (Zofran) 4 mg 1X ONCE 11/15/20 19:00 11/15/20 19:01 DC Sodium Chloride 1,000 ml @ 1,000 mls/hr 1X ONCE 11/15/20 19:00 11/15/20 19:59 (DADA ISLAS APRN) Allergies: Allergies: Allergies Coded Allergies Type Severity Reaction Last Updated Verified ibuprofen Allergy Intermediate 07/06/19 Yes oxycodone Allergy Intermediate 07/06/19 Yes propoxyphene Allergy Intermediate 07/06/19 Yes acetaminophen Allergy Unknown 11/26/19 Yes (DADA ISLAS APRN) Physical Exam: PE: Constitutional: Well developed, well nourished, no acute distress, non-toxic appearance. [] HENT: bilateral external ears normal, oropharynx moist, no oral exudates, nose normal. [] Eyes: PERRLA, conjunctiva normal, no discharge. [] Neck: Normal range of motion, no tenderness, supple, no stridor. [] Cardiovascular:Heart rate regular rhythm, no murmur [] Lungs & Thorax: Bilateral breath sounds clear to auscultation [] Abdomen: Bowel sounds normal, soft, tenderness Skin: Warm, dry, no erythema, no rash. [] Back: No tenderness, no CVA tenderness. [] Extremities: No tenderness, no cyanosis, no clubbing, ROM intact, no edema. [] Neurologic: Alert and oriented X 3, normal motor function, normal sensory function, no focal deficits noted. [] Psychologic: Affect normal, judgement normal, mood normal. [] (DADA ISLAS APRN) Current Patient Data: Vital Signs: Vital Signs Date Time Temp Pulse Resp B/P (MAP) Pulse Ox O2 Delivery O2 Flow Rate FiO2 11/15/20 18:38 75 18 102/63 (76) 96 Room Air 11/15/20 17:17 98.4 (DADA ISLAS APRN) EKG: EKG: [] (DADA ISLAS APRN) Radiology/Procedures: Radiology/Procedures: [] (DADA ISLAS APRN) Radiology/Procedures: [address] [id number] IMAGING REPORT Signed PATIENT: LARRY STOVER ACCOUNT: [id number] : 1985 LOCATION: ER AGE: 35 SEX: F EXAM STATUS: REG ER ORD. PHYSICIAN: DADA ISLAS APRN REASON: generalized abdominal pain, rlq pain radiating to the back PROCEDURE: CT ABDOMEN PELVIS WO CONTRAST Exam: CT abdomen/pelvis without contrast Indication: Generalized abdominal pain. Right lower quadrant pain radiating to back. Comparison: CT abdomen pelvis 09/16/2020 Technique: Helical CT imaging performed of the abdomen and pelvis without contrast. Sagittal and coronal reformats were obtained. One or more of the following individualized dose reduction techniques were utilized for this examination: 1. Automated exposure control 2. Adjustment of the mA and/or kV according to patient size 3. Use of iterative reconstruction technique. Findings: Lower chest: Calcifications in the lower inner right breast. Lung bases are clear. Heart is normal in size. Liver: The liver is normal in size. There is a geographic, bandlike area of hypoattenuation in the posterior right hepatic lobe that is unchanged from 09/16/2020, possibly focal fat. Evaluation of the liver, specifically for underlying mass is limited by noncontrast exam. Gallbladder/Biliary Tree: The gallbladder is surgically absent. Bile ducts are normal. Pancreas: Normal. Spleen: Normal. Adrenal Glands: Normal. Kidneys/Ureters/Bladder: Normal. Reproductive Organs: Uterus is surgically absent. No adnexal mass. Stomach, small bowel, and colon: The stomach and small bowel are normal. There are surgical changes of appendectomy. Focal eccentric wall thickening of the mid sigmoid colon is unchanged. Most of the colon is decompressed, limiting evaluation. Vasculature: Aorta is normal in caliber. Lymph Nodes: No lymphadenopathy. Peritoneum and retroperitoneum: No free fluid or free air. Bones: No acute osseous abnormality. Unchanged angiomas in the T10 and T11 vertebral bodies. Impression: 1. Unchanged focal eccentric wall thickening in the mid sigmoid colon. Colonoscopy should be performed to exclude malignancy if not already performed. 2. Bandlike, geographic area of hypoattenuation in the posterior right hepatic lobe. This may reflect focal fatty infiltration and was seen on 09/16/2020 however evaluation for underlying liver lesion is limited on this exam due to lack of IV contrast. Electronically signed by: Miri Escalante MD (11/15/2020 7:28 PM) [id number] DICTATED AND SIGNED BY: MIRI ESCALANTE MD DATE: 11/15/201910 CC: DADA ISLAS APRN; BECKIE SAVAGE ~MTH0 0 (JANUSZ TARIQ MD) Heart Score: C/O Chest Pain: No Risk Factors: Risk Factors: DM, Current or recent (<one month) smoker, HTN, HLP, family history of CAD, obesity. Risk Scores: Score 0 - 3: 2.5% MACE over next 6 weeks - Discharge Home Score 4 - 6: 20.3% MACE over next 6 weeks - Admit for Clinical Observation Score 7 - 10: 72.7% MACE over next 6 weeks - Early Invasive Strategies (DADA ISLAS APRN) Course & Med Decision Making: Course & Med Decision Making Pertinent Labs and Imaging studies reviewed. (See chart for details) [] 35-year-old, nontoxic appearing, female presents emergency room with generalized abdominal pain. Patient states she was told on October 14 that she was going to need surgery for hernia repair but unable to get the surgery due to her weight. Patient's been having diarrhea, nausea and vomiting, increase in pain. Morphine and Zofran for nausea and pain. CT of abdomen and pelvis shows unchanged focal eccentric wall thickening in the mid sigmoid colon. Colonoscopy should be performed to exclude malignancy if not already performed. Informed patient of CT results and copy given. Patient will need to follow-up with GI doctor again for further evaluation or colonoscopy if it has not been performed. Transfer patient care to 2001 (DADA ISLAS APRN) Trevin Disclaimer: Trevin Disclaimer: This electronic medical record was generated, in whole or in part, using a voice recognition dictation system. (DADA ISLAS APRN) Departure Departure: Referrals: BECKIE SAVAGE (PCP) DADA ISLAS APRN Nov 15, 2020 19:44 JANUSZ TARIQ MD Nov 15, 2020 20:08
[2020-11-15 20:08] LABS: CLARITY,URINE CLEAR; COLOR,URINE YELLOW
[2020-11-15 20:10] LABS: BACTERIA,URINE 0 /HPF (0-FEW); BILIRUBIN,URINE NEG (NEG); GLUCOSE,URINE NEG (NEG); NITRITE,URINE NEG (NEG); RBC,URINE 0 /HPF (0-2); SQUAMOUS EPITHELIAL CELL,UR OCC /LPF; UROBILINOGEN,URINE 0.2 mg/dL (0.2 mg/dL); WBC,URINE 0 /HPF (0-4)
[2020-11-15 21:34] LABS: BASO # 0.1 x10^3/uL (0.0-0.2); BASO % 1 % (0-3); EOS # 0.4 x10^3/uL (0.0-0.7); EOS % 4 % (0-3); HEMATOCRIT 38.2 % (36.0-47.0); HEMOGLOBIN 12.8 g/dL (12.0-15.5); LYMPH # 3.1 x10^3/uL (1.0-4.8); LYMPH % 29 % (24-48); MEAN CORPUSCULAR HEMOGLOBIN 31 pg (25-35); MEAN CORPUSCULAR HGB CONC 33 g/dL (31-37); MEAN CORPUSCULAR VOLUME 93 fL (79-100); MONO # 0.7 x10^3/uL (0.0-1.1); MONO % 6 % (0-9); NEUT # 6.7 x10^3uL (1.8-7.7); NEUT % 61 % (31-73); PLATELET COUNT 370 x10^3/uL (140-400); RED BLOOD COUNT 4.12 x10^6/uL (3.50-5.40); RED CELL DISTRIBUTION WIDTH 14.7 % (11.5-14.5)
[2020-11-15 21:47] LABS: CALCIUM 8.6 mg/dL (8.5-10.1); CREATININE 0.9 mg/dL (0.6-1.0); GFR 70.8; POTASSIUM 4.2 mmol/L (3.5-5.1)
[2020-11-15 21:52] LABS: ALBUMIN 3.3 g/dL (3.4-5.0); ALBUMIN/GLOBULIN RATIO 0.8 (1.0-1.7); TOTAL BILIRUBIN 0.3 mg/dL (0.2-1.0); TOTAL PROTEIN 7.5 g/dL (6.4-8.2)
[2020-11-15 23:30] VITALS: BP 104/60
[2020-11-15] MEDS ORDERED: MORPHINE SULFATE 10 MG/ML SYRINGE. SQ ONE (23:30)
== END 2020-11-15 23:45 | disposition home or self-care (01) ==
LOC: ER 17:02
DX: R10.84 Generalized abdominal pain (principal); R11.2 Nausea with vomiting, unspecified; R19.7 Diarrhea, unspecified; F41.9 Anxiety disorder, unspecified; J45.909 Unspecified asthma, uncomplicated; F32.9 Major depressive disorder, single episode, unspecified; G43.909 Migraine, unspecified, not intractable, without status migrainosus; F17.210 Nicotine dependence, cigarettes, uncomplicated; Z90.710 Acquired absence of both cervix and uterus; Z88.6 Allergy status to analgesic agent; Z88.5 Allergy status to narcotic agent; Z88.8 Allergy status to other drugs, medicaments and biological substances
CPT/HCPCS: 36415; 74176; 80053; 81001; 85025; 96361; 96372; 96374; 96375; 99285; J2270; J2405; J7030; 99284-25

== ENCOUNTER 2021-04-29 18:30 | Emergency (ER) | payer MEDICAID ==
[~2021-04-29] VITALS: Ht 154.9 cm; Wt 96.1 kg
[~2021-04-29 18:30] MED LIST changes: -DOXY100C2 PO; +DOXY100C3 PO
[2021-04-29] MEDS ORDERED: ALBUTEROL SULFATE 8GM INHALER. INH ONE (19:00)
[2021-04-29] MEDS ORDERED: DEXAMETHASONE SOD PHOS 10 MG/ML VIAL. PO ONE (19:00)
--- NOTE | 2021-04-29 19:40 | PHYS DOC ---
Past History Past Medical History: Anxiety, Asthma, Depression, Migraines Additional Past Medical Histor: hernia, convulsive syncope, dextracardia, stage IV endometriosis Past Surgical History: Appendectomy, Cholecystectomy, , Hysterectomy Additional Past Surgical Histo: mirena placed 3 wks ago Smoking: Cigarettes Alcohol Use: None Drug Use: None General Adult EDM: Chief Complaint: COUGH HPI: HPI: Patient is a 35-year-old female that presents today with chills, cough, and chest pain since yesterday. Patient states that her son was diagnosed with RSV this week and her nephew who stayed a couple days was diagnosed with pneumonia both had coughs at that time. Patient does have a history of asthma and did use her inhaler around 1600 today, patient also took Tylenol at 1600 today as well. Review of Systems: Review of Systems: Constitutional: Denies fever or chills Eyes: Denies change in visual acuity HENT: Denies nasal congestion or sore throat Respiratory: cough or shortness of breath Cardiovascular: chest pain with cough denies edema GI: Denies abdominal pain, nausea, vomiting, bloody stools or diarrhea : Denies dysuria Musculoskeletal: Generalized weakness Integument: Denies rash Neurologic: Denies headache, focal weakness or sensory changes Endocrine: Denies polyuria or polydipsia Lymphatic: Denies swollen glands Psychiatric: Denies depression or anxiety Current Medications: Current Meds: Current Medications Medications (Trade) Dose Ordered Sig/Hosea Start Time Stop Time Status Last Admin Dose Admin Albuterol Sulfate (Ventolin Hfa Inhaler) 1 puff 1X ONCE 04/29/21 19:00 04/29/21 19:03 DC Dexamethasone Sodium Phosphate (Decadron) 10 mg 1X ONCE 04/29/21 19:00 04/29/21 19:03 DC 04/29/21 19:13 10 MG Allergies: Allergies: Allergies Coded Allergies Type Severity Reaction Last Updated Verified ibuprofen Allergy Intermediate 07/06/19 Yes oxycodone Allergy Intermediate 07/06/19 Yes propoxyphene Allergy Intermediate 07/06/19 Yes acetaminophen Allergy Unknown 11/26/19 Yes Physical Exam: PE: Constitutional: Well developed, well nourished, mild distress distress, non- toxic appearance. [] HENT: Normocephalic, atraumatic, bilateral external ears normal, oropharynx moist, no oral exudates, nose normal. [] Eyes: PERRLA, EOMI, conjunctiva normal, no discharge. [] Neck: Normal range of motion, no tenderness, supple, no stridor. [] Cardiovascular:Heart rate regular rhythm, no murmur [] Lungs & Thorax: Increased work of breathing noted, wheezes bilaterally, patient does have a cough that appears wet in nature no production per patient Abdomen: Bowel sounds normal, soft, no tenderness, no masses, no pulsatile masses. [] Skin: Warm, dry, no erythema, no rash. [] Back: No tenderness, no CVA tenderness. [] Extremities: No tenderness, no cyanosis, no clubbing, ROM intact, no edema. [] Neurologic: Alert and oriented X 3, normal motor function, normal sensory function, no focal deficits noted. [] Psychologic: Affect normal, judgement normal, mood normal. [] Current Patient Data: Labs: Laboratory Tests Test 04/29/21 19:15 Influenza Type A (Rapid) Negative Influenza Type B (Rapid) Negative Current Medications Medications (Trade) Dose Ordered Sig/Hosea Route PRN Reason Start Time Stop Time Status Last Admin Dose Admin Dexamethasone Sodium Phosphate (Decadron) 10 mg 1X ONCE PO 04/29/21 19:00 04/29/21 19:03 DC 04/29/21 19:13 Albuterol Sulfate (Ventolin Hfa Inhaler) 1 puff 1X ONCE INH 04/29/21 19:00 04/29/21 19:03 DC Vital Signs: Vital Signs Date Time Temp Pulse Resp B/P (MAP) Pulse Ox O2 Delivery O2 Flow Rate FiO2 04/29/21 19:27 97 Room Air 04/29/21 18:45 98.6 80 24 128/75 (92) EKG: EKG: [] Radiology/Procedures: Radiology/Procedures: PROCEDURE: CHEST AP ONLY AP chest. HISTORY: Cough, chest pain, chills AP view was taken of the chest. Patient is lordotically positioned. Heart is n ormal in size. There is no pleural effusion. There are no acute infiltrates. IMPRESSION: 1. No acute infiltrates. Electronically signed by: Nii Lott MD (04/29/2021 8:04 PM) [facility][] Heart Score: C/O Chest Pain: N/A Risk Factors: Risk Factors: DM, Current or recent (<one month) smoker, HTN, HLP, family history of CAD, obesity. Risk Scores: Score 0 - 3: 2.5% MACE over next 6 weeks - Discharge Home Score 4 - 6: 20.3% MACE over next 6 weeks - Admit for Clinical Observation Score 7 - 10: 72.7% MACE over next 6 weeks - Early Invasive Strategies Course & Med Decision Making: Course & Med Decision Making Pertinent Labs and Imaging studies reviewed. (See chart for details) 2018 reassessment of patient completed patient satting 99% patient continues to still have a cough and when auscultated lungs lung sounds are wheezy still, patient is moving more air. Talk with patient about going home with oral steroids to be started on Saturday and some Tessalon Perles to help with the cough. I advised patient to quarantine until her PCR Covid comes back as either positive or negative if it is positive she will need to quarantine for 14 days from the time her symptoms started. Instructed her to follow-up with her primary care physician on Saturday by phone. Return to the emergency department if increased chest pressure or pain, increased shortness of breath, or bluing of the fingers or lips. Patient verbalizes understanding of this and understands the plan of care Trevin Disclaimer: Trevin Disclaimer: This electronic medical record was generated, in whole or in part, using a voice recognition dictation system. Departure Departure: Impression: Primary Impression: Asthma exacerbation Qualified Codes: J45.901 - Unspecified asthma with (acute) exacerbation Additional Impressions: Suspected 2019 novel coronavirus infection Cough Disposition: HOME / SELF CARE / HOMELESS Condition: STABLE Referrals: BECKIE SAVAGE (PCP) Patient Instructions: Asthma, Adult Additional Instructions: Increase by mouth fluids Use albuterol inhaler/nebulizer every 4 hours as needed for wheezing Tessalon pearls take 1 tablet every 8 hours as needed for cough Start prednisone on May 02 or Saturday take daily until completed Follow the below quarantine recommendations from the date your symptoms started, if you test positive you will need to quarantine for a total of 14 days. Return to the emergency department if you have increased shortness of air, bluing of your lips or fingertips, and increased chest pain or inability to keep by mouth fluids down Take Tylenol as needed for pain or fever Follow-up with your primary care physician on Saturday by phone for further management of your asthma You have been tested for or diagnosed with COVID-19. It is an infection caused by a new type of coronavirus. COVID-19 will cause cold-like or mild flu symptoms in most. It can cause more severe symptoms like problems breathing in some. There is no treatment for COVID-19. The body will clear the infection over time. Self-care will help to ease discomfort. Steps to Take: Self-Care Rest as needed. Healthy habits may help you feel better. Steps include: Choose healthy foods including fruits and vegetables. Drink water throughout the day. Get plenty of sleep each night. If you smoke, try to quit. It may ease breathing. Avoid alcohol. Keep Others Healthy The virus can spread to others. Droplets are released every time you sneeze or cough. The droplets can get into the mouth, nose, or eyes of people near you and lead to infection. To lower the chances of spreading COVID-19 to others: Stay at home until your doctor has said it is safe to leave. If you tested positive this will mean staying isolated until both of the following are true: At least 7 days have passed since the start of illness. You are free of fever for at least 72 hours without the use of medicine. During this time: - Avoid public areas, events, or transportation. Do not return to work or school until your doctor has said it is safe to do so. - Call ahead if you need to go to a medical center. Let them know you may have COVID-19. It will help them guide you where to go. They may also ask you to wear a facemask when you come to the office. - If you call for emergency medical services, let them know you may have COVID- 19. While at home: - Try to avoid close contact with others. Stay about 6 feet away. - If possible, spend most of your time in a separate room from others. - Use a face mask if you will be in close contact with others such as sharing a room or vehicle. - Have someone wipe down common surfaces in the home. Use household toll ticket clerk every day on areas like doorknobs, counters, or sinks. - Cough or sneeze into a tissue. Throw the tissue away right after use. If a tissue is not available, cough or sneeze into your elbow. - Wash your hands often. Wash them after sneezing or coughing. Use soap and water and wash for at least 20 seconds. Alcohol based hand rope cleaner can be used if soap and water is not available. - Do not prepare food for others. Avoid sharing personal items like forks, spoons, or toothbrushes. - Avoid close contact with pets while you are sick. There is no evidence of the virus passing to pets. This is a safety step until more is known about this virus. Isolation can be frustrating. Social interaction can help. Keep in touch with friends and family through phone and tech options. You can still interact with others in your home, just keep a safe distance of about 6 feet. Follow-up: Your doctors office will check in with you to see if there are any changes in your health. You may be asked to keep track of symptoms to share with them. They will also let you know when you are clear to be in public again. Problems to Look Out For: Contact your doctor if your recovery is not going as you expect. Get emergency care if you have problems such as: - Trouble breathing - Nonstop chest pain or pressure - Changes in awareness, confusion, or problems waking - Lips or face have bluish color - Worsening of symptoms If you think you have an emergency, call for emergency medical services right away. As taken from [facility] Benzonatate (BENZONATATE) 200 Mg Capsule 1 CAP PO PRN TID PRN for cough for 7 Days, #21 CAP 0 Refills Prov: JORGE DAVIS TAX CONSULTANT 04/29/21 Prednisone (PREDNISONE) 20 Mg Tablet 2 TAB PO DAILY for allergies for 3 Days, #6 TAB start this medication on May 02, 2021. Prov: JORGE DAVIS TAX CONSULTANT 04/29/21 JORGE DAVIS APRN Apr 29, 2021 19:40
[2021-04-29 19:46] LABS: INFLUENZA A PATIENT NEGATIVE (NEGATIVE); INFLUENZA B PATIENT NEGATIVE (NEGATIVE)
--- NOTE | 2021-04-29 20:07 | RAD ---
AP chest. HISTORY: Cough, chest pain, chills AP view was taken of the chest. Patient is lordotically positioned. Heart is normal in size. There is no pleural effusion. There are no acute infiltrates. IMPRESSION: 1. No acute infiltrates. Electronically signed by: Nii Lott MD (04/29/2021 8:04 PM) [facility]
[2021-04-29 20:15] VITALS: BP 159/47
[2021-04-29] MEDS ORDERED: BENZ200C47 PO (20:24)
[2021-04-29] MEDS ORDERED: PRED20TA PO (20:24)
== END 2021-04-29 20:35 | disposition home or self-care (01) ==
LOC: ER 18:30
DX: J45.901 Unspecified asthma with (acute) exacerbation (principal); F17.210 Nicotine dependence, cigarettes, uncomplicated; Z20.822 Contact with and (suspected) exposure to COVID-19; Z88.5 Allergy status to narcotic agent; Z88.6 Allergy status to analgesic agent; Z90.49 Acquired absence of other specified parts of digestive tract; Z90.710 Acquired absence of both cervix and uterus
CPT/HCPCS: 71045; 87804; 94640; 99285; C9803; J1100; U0003; 94664

== ENCOUNTER → 2021-07-31 | Outpatient (CLI) | payer MEDICAID ==
[~2021-07-31] MED LIST changes: +BENZ200C47 PO; +PRED20TA PO
--- NOTE | 2021-07-31 10:17 | RAD ---
EXAM: Pelvic sonogram; abdomen sonogram. HISTORY: Pain. TECHNIQUE: Sonographic imaging of the abdomen and pelvis was performed. COMPARISON: CT dated 11/15/2020. FINDINGS: The uterus and ovaries are surgically absent. No adnexal mass or cyst is seen. There is no pelvic free fluid. There is no suspicious sonographic finding within the site of palpable concern wit hin the left lower quadrant. The liver is normal in size. There is hepatic steatosis. No focal hepatic lesion is seen. The common bile duct is upper normal in caliber for patient age. The gallbladder is surgically absent. The kidne ys are normal in size. There is no hydronephrosis. There is no suspicious renal lesion. The spleen is partially obscured but appears to be normal in size. The aorta and inferior vena cava are unremarkab le. IMPRESSION: 1. No suspicious sonographic finding at the site of palpable concern within the left lower quadrant. 2. Surgically absent uterus and ovaries. 3. Surgically absent gallbladder. 4. Hepatic steatosis. Electronically signed by: Elizabeth Conte MD (07/31/2021 10:14 AM) [id number]
== END ==
LOC: US 09:17
PROVIDERS: ATTEND Physician Assistant
DX: K76.0 Fatty (change of) liver, not elsewhere classified (principal); Z90.710 Acquired absence of both cervix and uterus
CPT/HCPCS: 76700; 76856

== ENCOUNTER 2021-08-11 18:55 | Emergency (ER) | payer MEDICAID ==
[~2021-08-11] VITALS: Ht 154.9 cm; Wt 96.1 kg
[2021-08-11 19:07] VITALS: BP 127/92
--- NOTE | 2021-08-11 19:26 | PHYS DOC ---
Past History Past Medical History: Anxiety, Asthma, Depression, Migraines Additional Past Medical Histor: hernia, convulsive syncope, dextracardia, stage IV endometriosis Past Surgical History: Appendectomy, Cholecystectomy, , Hysterectomy Additional Past Surgical Histo: mirena placed 3 wks ago Smoking: Cigarettes Alcohol Use: None Drug Use: None General Adult EDM: Chief Complaint: MECHANICAL FALL HPI: HPI: ". I fell down the stairs...".. I tripped over my dog Lucifer... He a pure breed Blue [place]ick..."... I slid all the way down 12 stairs on my butt..." Patient is a 35 year old female who presents with above hx and complaints of fall down a carpeted stairwell after tripping over her dog. Patient locates pain primarily in right elbow and lumbar sacral pelvic area. Patient does have some contusions of her sacral area. There is some midline tenderness of her lumbar sacral spine. Her elbow is tender to palpitation and does have some edema. Range of motion exacerbates pain. Distal neurovascular appears to be eq ual to her left hand. Patient denies any other injury currently. Patient has past medical history of bronchial asthma, convulsions, syncope, dextrocardia, PVCs, multiple laparotomies for endometriosis, appendectomy, cholecystectomy and 2 C-sections. Patient up-to-date with vaccinations. No recent travel. No specific ill contacts. No history of immunosuppression. Patient has had COVID vaccination as well as flu vaccination this season. Patient does smoke. Patient normally follows with Agustin Savaeg for care. Review of Systems: Review of Systems: Constitutional: Denies fever or chills Eyes: Denies change in visual acuity HENT: Denies nasal congestion or sore throat Respiratory: Denies cough or shortness of breath Cardiovascular: Denies chest pain or edema GI: Denies abdominal pain, nausea, vomiting, bloody stools or diarrhea : Denies dysuria Musculoskeletal: Complains of lumbar sacral and pelvic contusions and pain. Complains of contusion to right elbow. Integument: Denies rash Neurologic: Denies headache, focal weakness or sensory changes Endocrine: Denies polyuria or polydipsia Lymphatic: Denies swollen glands Psychiatric: Denies depression or anxiety Family History: Family History: Noncontributory to presentation. She has 3 sisters and 1 brother all older. 1 sister has epilepsy. 3 of them have bronchial asthma. Father is 62 with history of hypertension and LVH. Mother of liver cancer age 51 Current Medications: Current Meds: See nursing for home meds. Allergies: Allergies: Allergies Coded Allergies Type Severity Reaction Last Updated Verified ibuprofen Allergy Intermediate 07/06/19 Yes oxycodone Allergy Intermediate 07/06/19 Yes propoxyphene Allergy Intermediate 07/06/19 Yes Physical Exam: PE: Constitutional: Moderate acute distress, non-toxic appearance. [] HENT: Normocephalic, atraumatic, bilateral external ears normal, oropharynx moist, no oral exudates, nose normal. [] Eyes: PERRLA, EOMI, conjunctiva normal, no discharge. Glasses Neck: Normal range of motion, no tenderness, supple, no stridor. More than 17 inches circumference Cardiovascular: Tachycardia rate regular rhythm, no murmur [] PMI to the left Lungs & Thorax: Bilateral breath sounds equal apex with few scattered wheezes on auscultation [] Abdomen: Bowel sounds normal, soft, no tenderness, no masses, no pulsatile masses. [] Old surgery scars. Obese. Skin: Warm, dry, no erythema, no rash. [] Back: Lumbar sacral and pelvic posterior tenderness contusion, no CVA tender ness. [] Extremities: No tenderness, no cyanosis, no clubbing, ROM intact, no edema. Except right elbow contusion. Limited Range of motion exam because of pain. Distal neurovascular is equal to the left hand. Patient is right-hand dominant. Neurologic: Alert and oriented X 3, moves all extremities as requested, does have distal sensory,, no focal deficits noted. [] Psychologic: Affect anxious, judgement normal, mood normal. [] Current Patient Data: Vital Signs: Vital Signs Date Time Temp Pulse Resp B/P (MAP) Pulse Ox O2 Delivery O2 Flow Rate FiO2 08/11/21 19:07 98.3 85 16 127/92 (104) 96 Room Air EKG: EKG: [] Radiology/Procedures: Radiology/Procedures: [address] [address] IMAGING REPORT Signed PATIENT: LARRY STOVER ACCOUNT: [id number] : 1985 LOCATION: ER AGE: 35 SEX: F EXAM STATUS: REG ER ORD. PHYSICIAN: JANUSZ TARIQ MD REASON: FALL DOWN STAIRS TONIGHT. RIGHT ELBOW PAIN PROCEDURE: ELBOW RIGHT 3V Three-view right elbow dated 08/11/2021. No comparison available. CLINICAL INDICATION: Pain. FINDINGS: 3 views right elbow show normal bony alignment. No displaced fracture. No periostitis or bone destruction. No acute osseous or articular abnormality. No fat pad elevation to suggest joint effusion. IMPRESSION: No acute radiographic abnormality. Electronically signed by: Edmundo Gardner MD (08/11/2021 9:08 PM) [facility] [place] DICTATED AND SIGNED BY: EDMUNDO GARDNER MD DATE: 08/11/212107 CC: JANUSZ TARIQ MD; BECKIE SAVAGE [place] ~MTH[address] [place] [address] IMAGING REPORT Signed PATIENT: LARRY STOVER ACCOUNT: [id number] : 1985 LOCATION: ER AGE: 35 SEX: F EXAM STATUS: REG ER ORD. PHYSICIAN: JANUSZ TARIQ MD REASON: FALL DOWNSTAIRS, BACK PAIN PROCEDURE: CT LUMBAR SPINE WO CONTRAST PQRS Compliance Statement: One or more of the following individualized dose reduction techniques were utilized for this examination: 1. Automated exposure control 2. Adjustment of the mA and/or kV according to patient size 3. Use of iterative reconstruction technique CT LUMBAR SPINE WO, CT PELVIS WO Clinical Indication: Reason: fall down stairs, back and pelvic pain. Comparison: None. TECHNIQUE: Helical CT imaging of the lumbar spine and the pelvis is performed without IV contrast. Findings: There is no acute compression fracture of the lumbar spine. The alignment is maintained. The disc spaces are maintained. The sacroiliac joints are symmetric. The transverse processes are intact. There is facet hypertrophy on the left at L5/S1. No high-grade central canal stenosis is identified in the lumbar spine. Neural foramina appear adequate. Cholecystectomy. No hydronephrosis. There is no acute pelvic fracture. The hip joints are intact. No diastasis of symphysis pubis. There is well-corticated irregularity on the left. The mineralization is normal. The sacrum alignment is maintained. Appendectomy. Urinary bladder is intact. No pelvic free fluid. Hysterectomy. No acute intramuscular hematoma is identified. IMPRESSION: No acute fracture of the lumbar spine or pelvis. Electronically signed by: Robby Worthington MD (08/11/2021 9:07 PM) [facility] DICTATED AND SIGNED BY: ROBBY WORTHINGTON MD DATE: 08/11/212099 CC: JANUSZ TARIQ MD; BECKIE SAVAGE ~MTH0 0 [][place] [address] IMAGING REPORT Signed PATIENT: LARRY STOVER ACCOUNT: [id number] : 1985 LOCATION: ER AGE: 35 SEX: F EXAM STATUS: REG ER ORD. PHYSICIAN: JANUSZ TARIQ MD REASON: FALL DOWN 14 STEPS, PAIN PROCEDURE: CT PELVIS WO CONTRAST PQRS Compliance Statement: One or more of the following individualized dose reduction techniques were utilized for this examination: 1. Automated exposure control 2. Adjustment of the mA and/or kV according to patient size 3. Use of iterative reconstruction technique CT LUMBAR SPINE WO, CT PELVIS WO Clinical Indication: Reason: fall down stairs, back and pelvic pain. Comparison: None. TECHNIQUE: Helical CT imaging of the lumbar spine and the pelvis is performed without IV contrast. Findings: There is no acute compression fracture of the lumbar spine. The alignment is maintained. The disc spaces are maintained. The sacroiliac joints are symmetric. The transverse processes are intact. There is facet hypertrophy on the left at L5/S1. No high-grade central canal stenosis is identified in the lumbar spine. Neural foramina appear adequate. Cholecystectomy. No hydronephrosis. There is no acute pelvic fracture. The hip joints are intact. No diastasis of symphysis pubis. There is well-corticated irregularity on the left. The mineralization is normal. The sacrum alignment is maintained. Appendectomy. Urinary bladder is intact. No pelvic free fluid. Hysterectomy. No acute intramuscular hematoma is identified. IMPRESSION: No acute fracture of the lumbar spine or pelvis. Electronically signed by: Robby Worthington MD (08/11/2021 9:07 PM) [facility] DICTATED AND SIGNED BY: ROBBY WORTHINGTON MD DATE: 08/11/212099 CC: JANUSZ TARIQ MD; BECKIE SAVAGE ~MTH0 0 Heart Score: C/O Chest Pain: N/A Risk Factors: Risk Factors: DM, Current or recent (<one month) smoker, HTN, HLP, family history of CAD, obesity. Risk Scores: Score 0 - 3: 2.5% MACE over next 6 weeks - Discharge Home Score 4 - 6: 20.3% MACE over next 6 weeks - Admit for Clinical Observation Score 7 - 10: 72.7% MACE over next 6 weeks - Early Invasive Strategies Course & Med Decision Making: Course & Med Decision Making Pertinent Labs and Imaging studies reviewed. (See chart for details) Use ice packs as needed. Follow-up primary care. Take Tylenol as needed for pain. For marked pain may take a Percocet. Take Flexeril 10 mg 3 times a day for muscle spasms. 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 Impression: 1. Trip and fall 2. Right elbow contusion and sprain 3. Lumbar sacral contusion [] Dragon Disclaimer: Dragon Disclaimer: This electronic medical record was generated, in whole or in part, using a voice recognition dictation system. Departure Departure: Referrals: BECKIE SAVAGE (PCP) Scripts Cyclobenzaprine Hcl (CYCLOBENZAPRINE HCL) 10 Mg Tablet 10 MG PO TID PRN PRN for spasms, #30 TAB Prov: JANUSZ TARIQ MD 08/11/21 Dragon Disclaimer This chart was dictated in whole or in part using Voice Recognition software in a busy, high-work load, and often noisy Emergency Department environment. It may contain unintended and wholly unrecognized errors or omissions. JANUSZ TARIQ MD Aug 11, 2021 19:26
[2021-08-11] MEDS ORDERED: MORPHINE SULFATE 10 MG/ML SYRINGE. SQ ONE (19:45)
[2021-08-11] MEDS ORDERED: ONDANSETRON PF 4 MG/2 ML VIAL. IVP ONE ×2 (19:45→23:00)
[2021-08-11] MEDS ORDERED: diphenhydrAMINE 50 MG/ML VIAL IVP ONE (19:45)
[2021-08-11] MEDS ORDERED: ORPHENADRINE CITRATE 60 MG/2 ML VIAL. IV ONE (19:45)
[2021-08-11] MEDS ORDERED: KETOROLAC 60 MG/2 ML VIAL. IM ONE (20:00)
[2021-08-11 20:24] LABS: BARBITURATES NEG (NEG); BENZODIAZEPINES NEG (NEG); CANNABINOIDS NEG (NEG); COCAINE NEG (NEG); METHADONE NEG (NEG); OPIATES NEG (NEG); PHENCYCLIDINE NEG (NEG)
[2021-08-11 20:25] LABS: AMPHETAMINE/METHAMPHETAMINE NEG (NEG)
[2021-08-11 20:31] LABS: BACTERIA,URINE 0 /HPF (0-FEW); CLARITY,URINE CLEAR; COLOR,URINE YELLOW; GLUCOSE,URINE NEG (NEG); NITRITE,URINE NEG (NEG); RBC,URINE 0 /HPF (0-2); SQUAMOUS EPITHELIAL CELL,UR OCC /LPF; UROBILINOGEN,URINE 0.2 mg/dL (0.2 mg/dL); WBC,URINE 0 /HPF (0-4)
--- NOTE | 2021-08-11 21:10 | RAD ---
PQRS Compliance Statement: One or more of the following individualized dose reduction techniques were utilized for this examinat ion: 1. Automated exposure control 2. Adjustment of the mA and/or kV according to patient size 3. Use of iterative reconstruction technique CT LUMBAR SPINE WO, CT PELVIS WO Clinical Indication: Reason: fall down stairs, back and pelvic pain. Comparison: None. TECHNIQUE: Helical CT imaging of the lumbar spine and the pelvis is performed without IV contrast. Findings: There is no acute compression fracture of the lumbar spine. The alignment is maintained. The disc spa michelle are maintained. The sacroiliac joints are symmetric. The transverse processes are intact. There i s facet hypertrophy on the left at L5/S1. No high-grade central canal stenosis is identified in the l umbar spine. Neural foramina appear adequate. Cholecystectomy. No hydronephrosis. There is no acute pelvic fracture. The hip joints are intact. No diastasis of symphysis pubis. There is well-corticated irregularity on the left. The mineralization is normal. The sacrum alignment is ma intained. Appendectomy. Urinary bladder is intact. No pelvic free fluid. Hysterectomy. No acute intramuscular h ematoma is identified. IMPRESSION: No acute fracture of the lumbar spine or pelvis. Electronically signed by: Robby Worthington MD (08/11/2021 9:07 PM) [facility]
--- NOTE | 2021-08-11 21:10 | RAD ---
Three-view right elbow dated 08/11/2021. No comparison available. CLINICAL INDICATION: Pain. FINDINGS: 3 views right elbow show normal bony alignment. No displaced fracture. No periostitis or bone destruc tion. No acute osseous or articular abnormality. No fat pad elevation to suggest joint effusion. IMPRESSION: No acute radiographic abnormality. Electronically signed by: Edmundo Gardner MD (08/11/2021 9:08 PM) [facility]
[2021-08-11] MEDS ORDERED: CYCL10TA19 PO (22:49)
== END 2021-08-11 23:01 | disposition home or self-care (01) ==
LOC: ER 18:55
DX: S53.401A Unspecified sprain of right elbow, initial encounter (principal); S30.0XXA Contusion of lower back and pelvis, initial encounter; F41.9 Anxiety disorder, unspecified; F32.9 Major depressive disorder, single episode, unspecified; G43.909 Migraine, unspecified, not intractable, without status migrainosus; J45.909 Unspecified asthma, uncomplicated; F17.210 Nicotine dependence, cigarettes, uncomplicated; Z88.6 Allergy status to analgesic agent; Z88.5 Allergy status to narcotic agent; Z88.8 Allergy status to other drugs, medicaments and biological substances; W01.0XXA Fall on same level from slipping, tripping and stumbling without subsequent striking against object, initial encounter; Y93.89 Activity, other specified; Y92.89 Other specified places as the place of occurrence of the external cause; Y99.8 Other external cause status
CPT/HCPCS: 36415; 72131; 72192; 73080; 80307; 81001; 96372; 96374; 96375; 96376; 99284; J1200; J1885; J2270; J2360; J2405

== ENCOUNTER 2021-08-22 16:37 | Emergency (ER) | payer MEDICAID ==
[~2021-08-22] VITALS: Ht 154.9 cm; Wt 95.4 kg
[~2021-08-22 16:37] MED LIST changes: +CYCL10TA19 PO
[2021-08-22] MEDS ORDERED: IPRATRPIUM/ALBUTEROL 0.5/2.5MG 3 ML NEBU. NEB ONE (18:15)
[2021-08-22] MEDS ORDERED: predniSONE 20 MG TABLET PO ONE (18:45)
--- NOTE | 2021-08-22 18:48 | PHYS DOC ---
Past History Past Medical History: Anxiety, Asthma, Depression, Migraines Additional Past Medical Histor: hernia, convulsive syncope, dextracardia, stage IV endometriosis (ERASMO MONTERO APRN) Past Surgical History: Appendectomy, Cholecystectomy, , Hysterectomy Additional Past Surgical Histo: mirena placed 3 wks ago (ERASMO MONTERO APRN) Smoking: Cigarettes Alcohol Use: None Drug Use: None (ERASMO MONTERO APRN) General Adult EDM: Chief Complaint: SHORTNESS OF BREATH HPI: HPI: Patient is a 35-year-old female who presents to the emergency department today for shortness of breath, green productive cough that started last night. Patient does have a history of asthma and she reports that she has been using her inhaler and breathing treatments at home with little relief. Patient reports that she has not been on any steroids recently. She denies any fevers, nausea, vomiting, chest pain but does report chest wall tenderness with coughing. (ERASMO MONTERO APRN) Review of Systems: Review of Systems: Constitutional: See HPI Respiratory: See HPI Cardiovascular: See HPI GI: See HPI Musculoskeletal: See HPI (ERASMO MONTERO APRN) Current Medications: Current Meds: Current Medications Medications (Trade) Dose Ordered Sig/Hosea Start Time Stop Time Status Last Admin Dose Admin Albuterol/ Ipratropium (Duoneb) 3 ml 1X ONCE 08/22/21 18:15 08/22/21 18:18 DC 08/22/21 18:41 3 ML Prednisone (Prednisone) 60 mg 1X ONCE 08/22/21 18:45 08/22/21 18:46 UNV (ERASMO MONTERO APRN) Allergies: Allergies: Allergies Coded Allergies Type Severity Reaction Last Updated Verified ibuprofen Allergy Intermediate 07/06/19 Yes oxycodone Allergy Intermediate 07/06/19 Yes propoxyphene Allergy Intermediate 07/06/19 Yes (ERASMO MONTERO APRN) Physical Exam: PE: Constitutional: Well developed, well nourished, no acute distress, non-toxic appearance. [] HENT: Normocephalic, atraumatic, bilateral external ears normal, oropharynx moist, no oral exudates, nose normal. [] Eyes: PERRL EOMI, conjunctiva normal, no discharge. [] Neck: Normal range of motion, no stridor Cardiovascular:Heart rate regular rhythm, no murmur [] Lungs & Thorax: Wheezing noted throughout Abdomen: Flat and soft Skin: Warm, dry, no erythema, no rash. [] Back: Full range of motion Extremities: No tenderness, no cyanosis, no clubbing, ROM intact, no edema. [] Neurologic: Alert and oriented X 3, normal motor function, normal sensory function, no focal deficits noted. [] Psychologic: Affect normal, judgement normal, mood normal. [] (ERASMO MONTERO APRN) Current Patient Data: Vital Signs: Vital Signs Date Time Temp Pulse Resp B/P (MAP) Pulse Ox O2 Delivery O2 Flow Rate FiO2 08/22/21 18:41 92 Room Air 08/22/21 16:55 99.3 89 20 131/79 (96) (ERASMO MONTERO APRN) EKG: EKG: [] (ERASMO MONTERO APRN) Radiology/Procedures: Radiology/Procedures: []PROCEDURE: PORTABLE CHEST 1V EXAMINATION: XR CHEST 1V CLINICAL HISTORY: Shortness of breath, wheezing. EXAM DATE/TIME: 08/22/2021 6:08 PM COMPARISON: 04/29/2021 FINDINGS: Lines, Tubes, and Devices: Implantable cardiac loop recorder in place. Cardiomediastinal Silhouette: Stable heart size and positioning. Lungs and Pleura: No evidence of focal airspace consolidation or pleural effusion. Pulmonary vasculature unremarkable. Bones and Soft Tissues: No acute osseous abnormality. IMPRESSION: No evidence of acute cardiopulmonary abnormality or significant interval change. Electronically signed by: Tommie Ray DO (08/22/2021 7:55 PM) [facility] DI[facility] AND SIGNED BY: TOMMIE RAY DO DATE: 08/22/211952 CC: OCTAVIA ALMONTE MD; BECKIE ASVAGE; ERASMO MONTERO APRN ~MTH0 0 (ERASMO MONTERO APRN) Heart Score: C/O Chest Pain: No Risk Factors: Risk Factors: DM, Current or recent (<one month) smoker, HTN, HLP, family history of CAD, obesity. Risk Scores: Score 0 - 3: 2.5% MACE over next 6 weeks - Discharge Home Score 4 - 6: 20.3% MACE over next 6 weeks - Admit for Clinical Observation Score 7 - 10: 72.7% MACE over next 6 weeks - Early Invasive Strategies (ERASMO MONTERO APRN) Course & Med Decision Making: Course & Med Decision Making Pertinent Labs and Imaging studies reviewed. (See chart for details) [] Patient presents to the emergency department for shortness of breath and a productive cough with a history of asthma. Patient was tested for influenza and COVID. She also had a chest x-ray performed. Patient was treated with a DuoNeb and steroids. Following first DuoNeb, patient continues to be wheezy. Patient was given a continuous nebulizer. Following nebulizer, patient's wheezing has improved. Her oxygen saturation is 94 to 96%. Discussed case with supervising physician. Patient will be discharged home with a steroid. She reports that she is almost out of her albuterol inhaler and this will be refilled for her. Patient advised to follow-up with her primary care provider, she reports that she is appointment with him on . I discussed with patient all findings and diagnostic testing as well as the need to follow-up with PCP for further evaluation and treatment or return to the ER if any new or worsening symptoms. Strict return precautions were also discussed at length. Patient voiced understanding and agreement with the plan. Patient is hemodynamically stable at the time of disposition. (ERASMO MONTERO APRN) Course & Med Decision Making Did not see or evaluate patient. Did not discuss patient with ASSEMBLY SUPERVISOR. Generally agree with ASSEMBLY SUPERVISOR's work-up and disposition per note. (OCTAVIA ALMONTE MD) Dragon Disclaimer: Dragon Disclaimer: This electronic medical record was generated, in whole or in part, using a voice recognition dictation system. (ERASMO MONTERO APRN) Departure Departure: Impression: Primary Impression: Asthma exacerbation Qualified Codes: J45.901 - Unspecified asthma with (acute) exacerbation Disposition: HOME / SELF CARE / HOMELESS Condition: GOOD Referrals: BECKIE SAVAGE (PCP) Patient Instructions: Asthma, Adult Additional Instructions: You were seen in the emergency department today for an asthma exacerbation. You likely have a viral illness that is exacerbating your asthma. Your Covid and influenza test was negative. Please continue using your breathing treatments at home. You are being discharged home with an albuterol inhaler that you can use as needed. You are also being discharged home with steroid. Follow-up with your primary care provider as previously scheduled on . Return to the emergency department if you develop worsening of your shortness of breath, chest pain, high fevers refractory to treatment, intractable nausea or vomiting, weakness. Scripts Prednisone (PREDNISONE) 50 Mg Tablet 1 TAB PO DAILY for asthma for 5 Days, #5 TAB 0 Refills Prov: ERASMO MONTERO APRN 08/22/21 Albuterol Sulfate (PROAIR HFA INHALER) 8.5 Gm Hfa.aer.ad 2 PUFF IH PRN Q4-6HRS PRN for wheezing for 21 Days, #1 INHALER 0 Refills as needed for wheezing Prov: ERASMO MONTERO APRN 08/22/21 ERASMO MONTERO APRN Aug 22, 2021 18:48 OCTAVIA ALMONTE MD Aug 22, 2021 20:25
[2021-08-22 18:53] LABS: INFLUENZA A PATIENT NEGATIVE (NEGATIVE); INFLUENZA B PATIENT NEGATIVE (NEGATIVE)
[2021-08-22 19:01] VITALS: BP 121/66
[2021-08-22] MEDS ORDERED: ALBUTEROL SULFATE 2.5 MG/3 ML NEBU. CONT NEB ONE (19:15)
[2021-08-22] MEDS ORDERED: ACETAMINOPHEN 325 MG TABLET PO ONE (19:15)
--- NOTE | 2021-08-22 19:57 | RAD ---
EXAMINATION: XR CHEST 1V CLINICAL HISTORY: Shortness of breath, wheezing. EXAM DATE/TIME: 08/22/2021 6:08 PM COMPARISON: 04/29/2021 FINDINGS: Lines, Tubes, and Devices: Implantable cardiac loop recorder in place. Cardiomediastinal Silhouette: Stable heart size and positioning. Lungs and Pleura: No evidence of focal airspace consolidation or pleural effusion. Pulmonary vasculat ure unremarkable. Bones and Soft Tissues: No acute osseous abnormality. IMPRESSION: No evidence of acute cardiopulmonary abnormality or significant interval change. Electronically signed by: Tommie Jackman DO (08/22/2021 7:55 PM) [facility]
[2021-08-22] MEDS ORDERED: PRED50TA PO (20:02)
[2021-08-22] MEDS ORDERED: ALBU2.5V8 IH (20:02)
== END 2021-08-22 20:32 | disposition home or self-care (01) ==
LOC: ER 16:37
DX: J45.901 Unspecified asthma with (acute) exacerbation (principal); G43.909 Migraine, unspecified, not intractable, without status migrainosus; F17.210 Nicotine dependence, cigarettes, uncomplicated; Z20.822 Contact with and (suspected) exposure to COVID-19; Z88.5 Allergy status to narcotic agent; Z88.6 Allergy status to analgesic agent; Z88.8 Allergy status to other drugs, medicaments and biological substances
CPT/HCPCS: 71045; 87428; 94640; 99285; J7512; J7613